=== PATIENT | male | born 1985 | race American Indian/Alaskan Native ===

== ENCOUNTER 2021-05-01 13:59 | Inpatient (IN) | payer MEDICARE ==
--- NOTE | 2021-05-01 17:56 | Emergency Department Report ---
ED General Adult HPI - General Chief complaint: Extremity Problem,Nontraumatic Stated complaint: TESTICLES SWOLLEN Time Seen by Provider: 05/01/21 17:31 Source: patient Mode of arrival: Ambulatory Limitations: No Limitations - History of Present Illness Initial comments: 36 y/o male pt w/ hx of COPD and DM presents to ED w/ complaints of progressively worsening lower extremity and testicular swelling for two weeks. No known history of CHF. Pt was previously diagnosed with COPD and placed on supplemental O2. He has not used his supplemental O2 in over one year due to financial constraints. Denies fever, chills, cough, chest pain, wheezing, vomiting, diarrhea, painful urination, paresthesias, numbness, weakness. Denies all other complaints at this time. - Related Data Allergies Allergy/AdvReac Type Severity Reaction Status Date / Time No Known Allergies Allergy Unverified 05/01/21 14:31 ED Review of Systems ROS: Stated complaint: TESTICLES SWOLLEN Other details as noted in HPI Other: GENERAL: Negative for fever, chills, weight change, anorexia, fatigue. ENT: Negative for ear pain, difficulty hearing, sore throat, nasal congestion, epistaxis. CARDIOVASCULAR: Positive for lower extremity swelling. PULMONARY: Negative for cough, dyspnea, wheezing, orthopnea, cyanosis. GASTROINTESTINAL: Negative for abdominal pain, nausea, vomiting, diarrhea, constipation. MUSCULOSKELETAL: Negative for joint pain, joint swelling, myalgias, back pain, neck pain. NEUROLOGICAL: Negative for headache, seizure, syncope, paresthesias, weakness. INTEGUMENTARY: Negative for erythema, rash, diaphoresis, laceration, ecchymosis. HEMATOLOGICAL: Negative for hemoptysis, hematemesis, hematochezia, hematuria. PSYCHIATRIC: Negative for hallucinations, suicidal ideation, homicidal ideation, anxiety, depression. ED Past Medical Hx - Past Medical History Previous Medical History?: Yes Hx Diabetes: Yes Hx COPD: Yes - Surgical History Past Surgical History?: No ED Physical Exam - General Limitations: No Limitations - Other Other exam information: General: Awake and alert. No acute distress. Head: Atraumatic, normocephalic. Eyes: EOMI. Pupils are equal and round. Normal sclera and conjunctiva. ENT: Oral mucosa is moist. Normal pharyngeal exam. Neck: Supple. No lymphadenopathy. Pulmonary: Supplemental O2 in place via nasal cannula. Coarse breath sounds bilaterally with diminished breath sounds along both lung bases. Cardiac: Tachycardic. Pulses are palpable and equal bilaterally. Significant bilateral pedal and pretibial pitting edema extending to the thighs and test icles. 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 Skin: Warm and dry. No rashes. Abdomen: Soft, non-tender, non-protuberant. No guarding, rigidity, or rebound. Bowel sounds are normal. No organomegaly or masses noted. Back: Normal alignment. No CVA tenderness. Extremities: Symmetrical. Full range of motion intact. Neurological: Alert and oriented, appropriately interactive, no focal deficits. Psych: Cooperative. Appropriate mood and affect. Speech is evenly metered. Thoughts are logically construed. ED Course Vital Signs 05/01/21 05/01/21 05/01/21 14:35 14:38 17:57 Temperature 98.7 F Pulse Rate 100 H 96 H Respiratory 22 19 Rate Blood Pressure 121/88 Blood Pressure 128/89 [Right] O2 Sat by Pulse 85 100 99 Oximetry ED Medical Decision Making - Lab Data Result diagrams: 05/01/21 17:54 05/01/21 17:54 - EKG Data 05/01/21 18:43 EKG shows normal sinus rhythm with a ventricular rate of 97 bpm. Normal axis. Normal AR interval. Normal QT interval. Poor R wave progression. No ST segment changes. Over read by attending emergency physician, who agrees with this interpretation. - Radiology Data [facility] [address] [place] [address] XRay Report Signed Patient: LILLIANA ELLIS MR#: [id number] : 1985 Acct:[id number] Age/Sex: 36 / M ADM Date: 05/01/21 Loc: ED Attending Dr: Ordering Physician: OTIS FARRELL Date of Service: 05/01/21 Procedure(s): XR chest routine 2V Accession Number(s): [id number] cc: OTIS FARRELL Fluoro Time In Minutes: CHEST 2 VIEWS INDICATION / CLINICAL INFORMATION: lower extremity swelling, CHF. COMPARISON: None available. FINDINGS: SUPPORT DEVICES: None. HEART / MEDIASTINUM: Cardiac silhouette size is mildly enlarged. LUNGS / PLEURA: There is mild interstitial pulmonary edema. Trace bilateral pleural effusions are present. The lungs are otherwise grossly clear. No pneumothorax. ADDITIONAL FINDINGS: No significant additional findings. IMPRESSION: 1. Mild cardiomegaly with mild interstitial pulmonary edema. Probable trace bilateral pleural effusions. Signer Name: Cinthia Littlejohn MD Signed: 05/01/2021 6:18 PM Workstation Name: [id number] Transcribed By: Dictated By: Cinthia Littlejohn MD Electronically Authenticated By: Cinthia Littlejohn MD Signed Date/Time: 05/01/211817 DD/ 16 TD/TT: - Medical Decision Making Differential diagnosis including but not limited to: acute coronary syndrome, cardiac arrhythmia, pericarditis, pericardial effusion/cardiac tamponade, pleural effusion, pneumonia, COVID-19, congestive heart failure, pulmonary hypertension, renal failure On reevaluation, patient is stable. Oxygen saturation 100% on 2 L per nasal cannula. No respiratory distress. Labs and chest x-ray are consistent with new onset CHF in the setting of renal failure. Given IV Lasix. Blood pressure is stable, therefore nitroglycerin and BiPAP withheld. Potassium slightly elevated; EKG without evidence of acute injury pattern or arrhythmia. Patient will require further diagnostic work-up and cardiology/nephrology consultation. Case discussed with hospitalist, who agrees to admit. Patient expressed understanding and is agreeable to plan of care. Critical Care Time: Yes Critical care time in (mins) excluding proc time.: 74 Critical care attestation.: If time is entered above; I have spent that time in minutes in the direct care of this critically ill patient, excluding procedure time. Critical Care Time: 74 minutes ED Disposition Clinical Impression: Acute on chronic respiratory failure with hypoxia Congestive heart failure Qualifiers: Heart failure type: unspecified Heart failure chronicity: unspecified Qualified Code(s): I50.9 - Heart failure, unspecified Renal failure Qualifiers: Renal failure chronicity: unspecified chronicity Qualified Code(s): N19 - Unspecified kidney failure Disposition: OP ADMIT IP TO THIS HOSP Is pt being admited?: Yes Does the pt Need Aspirin: No Condition: Serious Time of Disposition: 18:45
[2021-05-01 18:18] LABS: Basophils % (Auto) 0.6 % (0.0-1.8); Hematocrit 59.5 % (35.5-45.6); Hemoglobin 19.2 gm/dl (11.8-15.2); Lymphocytes # (Auto) 1.2 K/mm3 (1.2-5.4); Lymphocytes % (Auto) 28.2 % (13.4-35.0); Mean Corpuscular HGB Conc 32 % (32-34); Mean Corpuscular Volume 101 fl (84-94); Monocytes # (Auto) 0.5 K/mm3 (0.0-0.8); Monocytes % (Auto) 12.3 % (0.0-7.3); Platelet Count 260 K/mm3 (140-440); Red Blood Count 5.91 M/mm3 (3.65-5.03)
--- NOTE | 2021-05-01 18:23 | XRay Report ---
CHEST 2 VIEWS INDICATION / CLINICAL INFORMATION: lower extremity swelling, CHF. COMPARISON: None available. FINDINGS: SUPPORT DEVICES: None. HEART / MEDIASTINUM: Cardiac silhouette size is mildly enlarged. LUNGS / PLEURA: There is mild interstitial pulmonary edema. Trace bilateral pleural effusions are pre sent. The lungs are otherwise grossly clear. No pneumothorax. ADDITIONAL FINDINGS: No significant additional findings. IMPRESSION: 1. Mild cardiomegaly with mild interstitial pulmonary edema. Probable trace bilateral pleural effusio ns. Signer Name: Cinthia Littlejohn MD Signed: 05/01/2021 6:18 PM Workstation Name: [id number]
[2021-05-01 18:34] LABS: Calcium 9.2 mg/dL (8.4-10.2)
[2021-05-01 18:38] LABS: Bacteria,Urine 1+ /HPF (Negative); Bilirubin,Urine NEG (Negative); Blood,Urine MOD (Negative); Color,Urine Yellow (Yellow); Mucus,Urine FEW /HPF; Urobilinogen,Urine < 2.0 mg/dL (<2.0)
[2021-05-01] MEDS ORDERED: FUROSEMIDE 40 MG/4 ML INJ IV ONE (18:38)
[2021-05-01 18:39] LABS: Protein,Urine >500 mg/dL (Negative)
--- NOTE | 2021-05-01 18:43 | History and Physical Report ---
History of Present Illness Chief complaint: I am swollen and is hard to breathe History of present illness: 36 YO Male with Obesity Hypoventilation Syndrome, SMO, DM presents to ED for evaluation. Patient reports "I am swollen and is hard to breathe". Patient states that he has experienced shortness of breath, lower extremity swelling, testicular swelling over the past 2 weeks with progressively worsening symptoms over the same timeframe. Patient knowledges decreased exercise tolerance, dyspnea on exertion, dyspnea at rest. Patient transported to [facility] via private vehicle for further care and evaluation of the aforementioned symptoms. The patient was seen and evaluated in the emergency department. All lab and imaging studies reviewed. Patient found to have clinical symptoms consistent with new onset CHF, as well as cardiorenal syndrome. Patient admitted to telemetry and initiated on CHF protocol. Cardiology team consulted in ED. Nephrology team consulted in ED. Patient denies fever, chills, chest pain, palpitation, productive cough, skin rash, recent ill contact, or known exposure to COVID-19. No prior admission for review. No medication listed at admission for reconciliation. Past History Past Medical History: diabetes Past Surgical History: No surgical history, Other (Reviewed) Social history: single. denies: smoking, alcohol abuse, prescription drug abuse Family history: diabetes, hypertension Medications and Allergies Allergies Allergy/AdvReac Type Severity Reaction Status Date / Time No Known Allergies Allergy Unverified 05/01/21 14:31 Review of Systems Constitutional: no weight loss, no weight gain, no fever, no chills Ears, nose, mouth and throat: no ear pain, no ear discharge, no tinnitis, no decreased hearing, no nose pain, no nasal discharge Cardiovascular: orthopnea, edema, shortness of breath, dyspnea on exertion, paroxysmal nocturnal dyspnea, leg edema, decreased exercise tolerance, no chest pain, no palpitations Respiratory: no cough, no cough with sputum, no excessive sputum, no hemoptysis Gastrointestinal: no nausea, no vomiting, no diarrhea, no constipation Genitourinary Male: no hematuria, no flank pain, no discharge, no urinary frequency, no urinary hesitancy Rectal: no pain, no incontinence, no bleeding Musculoskeletal: no neck stiffness, no neck pain, no arm numbness/tingling, no low back pain Integumentary: no rash, no pruritis, no redness, no sores, no wounds Neurological: no transient paralysis, no paralysis, no weakness, no parathesias, no tingling Psychiatric: no anxiety, no memory loss, no sleep disturbances, no insomnia, no change in appetite, no change in libido Endocrine: no cold intolerance, no heat intolerance, no excessive thirst, no polydipsia, no polyuria, no nocturia, no excessive sweating Hematologic/Lymphatic: no easy bruising, no easy bleeding Allergic/Immunologic: no urticaria, no allergic rhinitis, no wheezing, no persistent infections Exam - Constitutional Vitals: Temp Pulse Resp BP Pulse Ox 98.7 F 96 H 19 128/89 99 05/01/21 14:35 05/01/21 17:57 05/01/21 17:57 05/01/21 17:57 05/01/21 17:57 General appearance: Present: mild distress, obese - EENT Eyes: Present: PERRL ENT: hearing intact, clear oral mucosa - Neck Neck: Present: supple, normal ROM - Respiratory Respiratory effort: labored Respiratory: bilateral: diminished, rales - Cardiovascular Heart Sounds: Present: S1 & S2. Absent: rub, click - Extremities Extremity abnormal: edema Peripheral Pulses: within normal limits - Abdominal General gastrointestinal: Present: soft, non-tender, non-distended, normal bowel sounds Male genitourinary: Present: normal - Integumentary Integumentary: Present: clear, dry - Musculoskeletal Musculoskeletal: generalized weakness - Psychiatric Psychiatric: appropriate mood/affect, intact judgment & insight - Neurologic Neurologic: CNII-XII intact, moves all extremities Results - Labs CBC & Chem 7: 05/01/21 17:54 05/01/21 18:58 Labs: Abnormal lab results 05/01/21 05/01/21 05/01/21 Range/Units 17:54 17:54 17:56 WBC 4.3 L (4.5-11.0) K/mm3 RBC 5.91 H (3.65-5.03) M/mm3 Hgb 19.2 H (11.8-15.2) gm/dl Hct 59.5 H (35.5-45.6) % MCV 101 H (84-94) fl RDW 16.0 H (13.2-15.2) % [place] % (Auto) 12.3 H (0.0-7.3) % Sodium 136 L (137-145) mmol/L Potassium 5.5 H (3.6-5.0) mmol/L Chloride 96.9 L (98-107) mmol/L Carbon Dioxide 34 H (22-30) mmol/L BUN 25 H (9-20) mg/dL Creatinine 2.7 H (0.8-1.3) mg/dL Phosphorus 5.30 H (2.5-4.5) mg/dL NT-Pro-B Natriuret Pep 1940 H (0-450) pg/mL Albumin 2.0 L (3.9-5) g/dL Urine WBC (Auto) 11.0 H (0.0-6.0) /HPF Assessment and Plan - Patient Problems (1) Congestive heart failure Current Visit: Yes Status: Acute Qualifiers: Heart failure type: unspecified Heart failure chronicity: acute Qualified Code(s): I50.9 - Heart failure, unspecified Plan to address problem: CHF protocol: Strict I's/O, monitor urine output every shift, daily weight, afterload reduction, blood pressure control, supplemental oxygen, diuresis with Lasix, BNP, thyroid panel, magnesium level, chest x-ray, cardiology team consulted in ED. Echocardiogram ordered and is pending at time of admission. (2) Acute on chronic respiratory failure with hypoxemia Current Visit: Yes Status: Acute Plan to address problem: Supplemental oxygen, pulse oximetry, nebulizer therapy, noninvasive positive pressure ventilation as clinically indicated. (3) Cardiorenal syndrome Current Visit: Yes Status: Acute Qualifiers: Heart failure presence: with heart failure Plan to address problem: Nephrology team consulted in ED, supportive care. (4) Obesity hypoventilation syndrome Current Visit: Yes Status: Acute Plan to address problem: Balanced diet, increase physical activity discharge, outpatient pulmonary follow-up for sleep study, outpatient bariatric surgery consult. (5) DVT prophylaxis Current Visit: Yes Status: Acute Plan to address problem: SCD to bilateral lower extremities while in bed, prophylactic anticoagulation
[2021-05-01] MEDS ORDERED: HYDROmorphone 1 MG/1 ML INJ IV PRN (18:44)
[2021-05-01] MEDS ORDERED: ONDANSETRON 4 MG/2 ML INJ IV PRN (18:44)
[2021-05-01] MEDS ORDERED: ACETAMINOPHEN 325 MG TAB PO PRN (18:44)
[2021-05-01] MEDS ORDERED: ALBUTEROL 2.5 MG/3 ML NEBU IH PRN (18:44)
[2021-05-01] MEDS ORDERED: oxyCODONE /ACETAMINOPHEN 5-325MG TAB PO PRN (18:44)
[2021-05-01 19:40] LABS: Chol/HDL Ratio 4.96 %
[2021-05-01 19:49] LABS: Albumin 1.7 g/dL (3.9-5); Calcium 8.6 mg/dL (8.4-10.2); Free T4 (Free Thyroxine) 0.85 ng/dL (0.76-1.46)
[2021-05-01] MEDS: HEPARIN 5,000 UNIT/1 ML VIAL SUB-Q SCH (23:37)
--- NOTE | 2021-05-02 04:24 | Nuclear Medicine Report ---
NUCLEAR MEDICINE PERFUSION LUNG SCAN INDICATION / CLINICAL INFORMATION: dyspnea. Shortness of breath. TECHNIQUE: 5.1 mCi of Tc-99m MAA were given by IV. COMPARISON: Chest radiograph dated 05/01/21. FINDINGS: PERFUSION: No significant perfusion defects. ADDITIONAL FINDINGS: None. IMPRESSION: 1. Low probability for pulmonary embolism. Signer Name: Susan Jeffries MD Signed: 05/02/2021 4:20 AM Workstation Name: [id number]
[2021-05-02] MEDS ORDERED: FUROSEMIDE 20 MG/2 ML INJ IV SCH (06:00)
--- NOTE | 2021-05-02 09:23 | Consultation ---
History of Present Illness - Reason for Consult Consult date: 05/02/21 acute renal failure, chronic renal failure - History of Present Illness The patient is a 36 YO male with history significant for Morbid Obesity, DM and HTN who presented to [facility] ED 05/01 with c/o worsening b/l LE swelling for the past month. Patient states that he has experienced shortness of breath, orthopnea, testicular swelling and difficulty in ambulating. Patient denies any N, V, D, abd pain, cp, dizziness, syncope, fever, chills or cough. On further evaluation he was features of decompensated CHF and CHRISTOPHER. Labs significant for Creat 2.3, BUN 23, K 5.4 and Sodium 132. Nephrology was consulted for further evaluation and treatment of CHRISTOPHER. Past History Past Medical History: diabetes Past Surgical History: No surgical history, Other (Reviewed) Social history: single. denies: smoking, alcohol abuse, prescription drug abuse Family history: diabetes, hypertension Medications and Allergies Allergies Allergy/AdvReac Type Severity Reaction Status Date / Time No Known Allergies Allergy Unverified 05/01/21 14:31 Home Medications Medication Instructions Recorded Confirmed Last Taken Type No Known Home Medications [No 05/02/21 05/02/21 Unknown History Reported Home Medications] Active Meds: Active Medications Acetaminophen (Acetaminophen 325 Mg Tab) 650 mg PO Q4H PRN PRN Reason: Pain MILD(1-3)/Fever >100.5/[place] Albuterol (Albuterol 2.5 Mg/3 Ml Nebu) 2.5 mg IH Q4HRT PRN PRN Reason: Shortness Of Breath Furosemide (Furosemide 20 Mg/2 Ml Inj) 20 mg IV BID@0600,1800 [facility] Last Admin: 05/02/21 05:38 Dose: 20 mg Documented by: Heparin Sodium (Porcine) (Heparin 5,000 Unit/1 Ml Vial) 5,000 unit SUB-Q Q12HR [facility] Last Admin: 05/01/21 23:37 Dose: Not Given Documented by: Hydromorphone HCl (Hydromorphone 1 Mg/1 Ml Inj) 0.5 mg IV Q12H PRN PRN Reason: Pain , Severe (7-10) Ondansetron HCl (Ondansetron 4 Mg/2 Ml Inj) 4 mg IV Q8H PRN PRN Reason: Nausea And Vomiting Oxycodone/Acetaminophen (Oxycodone /Acetaminophen 5-325mg Tab) 1 tab PO Q12H PRN PRN Reason: Pain, Moderate (4-6) Sodium Chloride (Sodium Chloride 0.9% 10 Ml Flush Syringe) 10 ml IV BID NANETTE Last Admin: 05/01/21 23:37 Dose: 10 ml Documented by: Sodium Chloride (Sodium Chloride 0.9% 10 Ml Flush Syringe) 10 ml IV PRN PRN PRN Reason: LINE FLUSH Review of Systems Constitutional: fatigue, no weight loss, no weight gain, no fever, no chills, no anorexia, no weakness, no poor appetite Cardiovascular: orthopnea, edema, shortness of breath, dyspnea on exertion, leg edema, decreased exercise tolerance, no chest pain, no syncope, no lightheadedness Respiratory: no cough Gastrointestinal: no abdominal pain, no nausea, no vomiting, no diarrhea, no melena Genitourinary Male: no dysuria, no hematuria Integumentary: no wounds Neurological: no convulsions, no aphasia, no change in speech, no change in mentation, no confusion, no memory loss Exam - Vital Signs Vital signs: Vital Signs Temp Pulse Resp BP Pulse Ox 98.7 F 100 H 22 121/88 85 05/01/21 14:35 05/01/21 14:35 05/01/21 14:35 05/01/21 14:35 05/01/21 14:35 Results - Lab Results 05/01/21 17:54 05/01/21 18:58 Most recent lab results Calcium 8.6 mg/dL (8.4-10.2) 05/01/21 18:58 Phosphorus 5.30 mg/dL (2.5-4.5) H 05/01/21 17:54 Magnesium 2.30 mg/dL (1.7-2.3) 05/01/21 18:58 Assessment and Plan 1. Acute kidney injury: CHRISTOPHER in the setting of decompensated CHF. Low FeNa. Renal US suggestive of CKD, no hydro. Monitor renal function. Slight decrease in the creatinine level noted. Avoid nephrotoxic agents. Meds dosage based on GFR. 2. FEN: Hyperkalemia, kayexalate ordered, on Lasix, monitor. Hyponatremia, monitor. Volume overload, on IV Lasix. Monitor lytes and volume status. 3. Acute on chronic respiratory failure with hypoxemia: 2/2 volume overload due to CHF. On NC O2. 4. Decompensated CHF: New onset congestive heart failure. Echocardiogram pending. On Lasix 40 mg twice daily, Metoprolol, strict I/Os, fluid and salt restriction. 5. Obesity hypoventilation syndrome. 6. DM type 2. 7. Polycythemia, POA: Monitor. 8. Hypertension: BP controlled. Subjective: Patient was seen and examined at the bedside. Examination: General appearance: well-developed, appears stated age, morbidly obese, on NC O2 HEENT: atraumatic, KD Neck: trachea midline Respiratory: ctab Heart: S1S2, regular, no murmur Abdomen: soft, bowel sounds heard, NT Integumentary: no obvious rash Neurologic: AO, non-focal Ext: LE, scrotal, abd wall and dependent edema
[2021-05-02] MEDS: HEPARIN 5,000 UNIT/1 ML VIAL SUB-Q SCH ×2 (10:34→21:33)
--- NOTE | 2021-05-02 10:48 | Ultrasound Report ---
ULTRASOUND RENAL INDICATION / CLINICAL INFORMATION: Acute renal failure.. COMPARISON: None available. FINDINGS: RIGHT KIDNEY: Length = 10.8 cm. - Echogenicity: Mild increased echogenicity. - Cortical Thickness: Normal. - Hydronephrosis: None. - Cyst / Mass: None. - Stones: None seen. LEFT KIDNEY: Length = 11.0 cm. - Echogenicity: Normal. - Cortical Thickness: Normal. - Hydronephrosis: None. - Cyst / Mass: None. - Stones: None seen. URINARY BLADDER: No significant abnormality. FREE FLUID: None. ADDITIONAL FINDINGS: None. IMPRESSION: 1. Limited examination secondary to body habitus. 2. Mildly echogenic right kidney which can be seen with medical renal disease, correlate clinically. Signer Name: Bridger Lara DO Signed: 05/02/2021 10:43 AM Workstation Name: [id number]
--- NOTE | 2021-05-02 14:27 | Consultation ---
History of Present Illness Consult date: 05/02/21 Requesting physician: BRIELLE CASTLE Consult reason: congestive heart failure History of present illness: Patient is a 36 y/o old male with a PMHx of COPD and DM who presented to ED with a complaint of being swollen and having difficulty breathing. He reports that he has noticed his shortness of breath and swelling over 2 weeks. The patient denies any cardiac history and says he does not have a PCP in the area because he is from [place]. He reports he has dyspnea on exertion and at rest. He denies chest pain, palpitations, or lightheadedness. Cardiology has been consulted for new onset heart failure Past History Past Medical History: COPD, diabetes Past Surgical History: No surgical history, Other (Reviewed) Social history: single. denies: smoking, alcohol abuse, prescription drug abuse Family history: diabetes, hypertension Medications and Allergies Allergies Allergy/AdvReac Type Severity Reaction Status Date / Time No Known Allergies Allergy Unverified 05/01/21 14:31 Home Medications Medication Instructions Recorded Confirmed Last Taken Type No Known Home Medications [No 05/02/21 05/02/21 Unknown History Reported Home Medications] Active Meds: Active Medications Acetaminophen (Acetaminophen 325 Mg Tab) 650 mg PO Q4H PRN PRN Reason: Pain MILD(1-3)/Fever >100.5/MEDLEY Albuterol (Albuterol 2.5 Mg/3 Ml Nebu) 2.5 mg IH Q4HRT PRN PRN Reason: Shortness Of Breath Atorvastatin Calcium (Atorvastatin 40 Mg Tab) 80 mg PO QHS [facility] Furosemide (Furosemide 20 Mg/2 Ml Inj) 40 mg IV BID@0600,1800 [facility] Heparin Sodium (Porcine) (Heparin 5,000 Unit/1 Ml Vial) 5,000 unit SUB-Q Q12HR [facility] Last Admin: 05/02/21 10:34 Dose: 5,000 unit Documented by: Hydromorphone HCl (Hydromorphone 1 Mg/1 Ml Inj) 0.5 mg IV Q12H PRN PRN Reason: Pain , Severe (7-10) Metoprolol Tartrate (Metoprolol Tartrate 25 Mg Tab) 12.5 mg PO BID [facility] Ondansetron HCl (Ondansetron 4 Mg/2 Ml Inj) 4 mg IV Q8H PRN PRN Reason: Nausea And Vomiting Oxycodone/Acetaminophen (Oxycodone /Acetaminophen 5-325mg Tab) 1 tab PO Q12H PRN PRN Reason: Pain, Moderate (4-6) Sodium Chloride (Sodium Chloride 0.9% 10 Ml Flush Syringe) 10 ml IV BID NANETTE Last Admin: 05/02/21 10:34 Dose: 10 ml Documented by: Sodium Chloride (Sodium Chloride 0.9% 10 Ml Flush Syringe) 10 ml IV PRN PRN PRN Reason: LINE FLUSH Review of Systems All systems: negative Constitutional: no weight loss, no fever, no chills, no sweats Ears, nose, mouth and throat: no decreased hearing, no nose pain, no nasal congestion, no nasal discharge, no sinus pressure Cardiovascular: edema, shortness of breath, dyspnea on exertion, no chest pain, no palpitations, no rapid/irregular heart beat, no lightheadedness Respiratory: shortness of breath, dyspnea on exertion, no cough with sputum, no excessive sputum, no hemoptysis Gastrointestinal: no abdominal pain, no nausea, no vomiting, no diarrhea Musculoskeletal: no neck stiffness, no neck pain, no shooting arm pain, no arm numbness/tingling Integumentary: no rash, no pruritis, no redness Neurological: no transient paralysis, no paralysis, no weakness Psychiatric: no anxiety, no memory loss Endocrine: no cold intolerance, no heat intolerance Hematologic/Lymphatic: no easy bruising, no easy bleeding Physical Examination Last Vital Signs Temp 98.7 F 05/01/21 14:35 Pulse 104 H 05/02/21 05:30 Resp 18 05/02/21 05:30 BP 126/90 05/02/21 05:30 Pulse Ox 95 05/02/21 05:30 General appearance: no acute distress HEENT: Positive: PERRL Neck: Positive: trachea midline Cardiac: Positive: Reg Rate and Rhythm Lungs: Positive: Decreased Breath Sounds Neuro: Positive: Grossly Intact Abdomen: Positive: Soft, Active Bowel Sounds Skin: Negative: Rash, Suspicious Lesions, Ulceration Extremities: Present: upper extr. pulses, lower extr. pulses, +4 Edema Results 05/01/21 17:54 05/01/21 18:58 Cardiac Enzymes 05/01/21 05/01/21 Range/Units 17:54 18:58 AST 33 38 (5-40) units/L Lipids 05/01/21 Range/Units 18:46 Triglycerides 121 (2-149) mg/dL Cholesterol 248 H (50-199) mg/dL HDL Cholesterol 50 (40-59) mg/dL Cholesterol/HDL Ratio 4.96 % CBC 05/01/21 Range/Units 17:54 WBC 4.3 L (4.5-11.0) K/mm3 RBC 5.91 H (3.65-5.03) M/mm3 Hgb 19.2 H (11.8-15.2) gm/dl Hct 59.5 H (35.5-45.6) % Plt Count 260 (140-440) K/mm3 Lymph # (Auto) 1.2 (1.2-5.4) K/mm3 [place] # (Auto) 0.5 (0.0-0.8) K/mm3 Eos # (Auto) 0.0 (0.0-0.4) K/mm3 Baso # (Auto) 0.0 (0.0-0.1) K/mm3 Comprehensive Metabolic Panel 05/01/21 05/01/21 Range/Units 17:54 18:58 Sodium 136 L 132 L (137-145) mmol/L Potassium 5.5 H 5.4 H (3.6-5.0) mmol/L Chloride 96.9 L 97.8 L (98-107) mmol/L Carbon Dioxide 34 H 25 D (22-30) mmol/L BUN 25 H 26 H (9-20) mg/dL Creatinine 2.7 H 2.3 H (0.8-1.3) mg/dL Glucose 89 101 H (75-100) mg/dL Calcium 9.2 8.6 (8.4-10.2) mg/dL AST 33 38 (5-40) units/L ALT 23 22 (7-56) units/L Alkaline Phosphatase 98 85 (35-129) units/L Total Protein 7.2 5.9 L (6.3-8.2) g/dL Albumin 2.0 L 1.7 L (3.9-5) g/dL - Imaging and Cardiology Echo: pending EKG: report reviewed, image reviewed EKG interpretations - Telemetry EKG Rhythm: Sinus Tachycardia - EKG Sinus rhythms and dysrhythmias: sinus rhythm Assessment and Plan Heart Failure * Patient has elevated BNP 1940, mildly elevated troponins 0.04, and +4 edema. * Echo pending. Trend cardiac enzymes * Increase Lasix to 40mg IV BID. Pending nephrology recs * GDMT: ASA, ANDREW/ARB, BB, Statin. Hold ANDREW/ARB in setting of CHRISTOPHER * Initiate metoprolol 12.5 BID, Lipitor 80mg QHS * Strict I&Os CHRISTOPHER * Patient has elevated K+ and creatinine with no known baseline. * Nephrology following DVT prophylaxis * Heparin SQ Diuresis, strict I/Os, echo pending Patient seen in conjunction with Dr. Meli Castro who agrees with this plan of care. Will continue to follow - Patient Problems (1) Acute on chronic respiratory failure with hypoxia Current Visit: Yes Status: Acute (2) Congestive heart failure Current Visit: Yes Status: Acute Qualifiers: Heart failure type: unspecified Heart failure chronicity: acute Qualified Code(s): I50.9 - Heart failure, unspecified (3) DVT prophylaxis Current Visit: Yes Status: Acute (4) Obesity hypoventilation syndrome Current Visit: Yes Status: Acute (5) Renal failure Current Visit: Yes Status: Acute Qualifiers: Renal failure chronicity: unspecified chronicity Qualified Code(s): N19 - Unspecified kidney failure
[2021-05-02 16:23] LABS: Creatinine,Urine 207.2 mg/dL (0.1-20.0); Protein/Creatinine Ratio,Urine 0.27
[2021-05-02] MEDS: FUROSEMIDE 40 MG/4 ML INJ IV SCH (17:22)
[2021-05-02] MEDS: METOPROLOL TARTRATE 25 MG TAB PO SCH ×2 (17:22→21:31)
--- NOTE | 2021-05-02 17:39 | Progress Note ---
Assessment and Plan - Patient Problems (1) Acute on chronic respiratory failure with hypoxemia Current Visit: Yes Status: Acute Plan to address problem: Acute respiratory failure with hypoxemia secondary to volume overload congestive heart failure. Should do well defervesced well with diuresis. Also exacerbated by the level of morbid obesity. Stable with 2 L of oxygen. (2) Congestive heart failure Current Visit: Yes Status: Acute Qualifiers: Heart failure type: unspecified Heart failure chronicity: acute Qualified Code(s): I50.9 - Heart failure, unspecified Plan to address problem: New onset congestive heart failure. Patient currently scheduled to receive ec hocardiogram. Diuretics Lasix 40 mg twice daily-diuresis should also help for scrotal edema Follow-up electrolytes. Follow up echocardiogram results. Ruled out for acute myocardial infarction Aggressive control blood pressure Beta-bushra Coreg, hold ANDREW inhibitor secondary to renal failure will restart after evaluation from nephrology. (3) DVT prophylaxis Current Visit: Yes Status: Acute (4) Obesity hypoventilation syndrome Current Visit: Yes Status: Acute Plan to address problem: Morbid obesity increase neck circumference loud snoring. Patient will require sleep study upon discharge. (5) Renal failure Current Visit: Yes Status: Acute Qualifiers: Renal failure chronicity: unspecified chronicity Qualified Code(s): N19 - Unspecified kidney failure Plan to address problem: Renal failure could be from uncontrolled hypertension. Renal consult Renal diet Avoid nephrotoxic agents (6) Hyperlipidemia Current Visit: Yes Status: Acute Plan to address problem: Patient with LDL of 189. We will go ahead and start patient on statin today. (7) Scrotal edema Current Visit: Yes Status: Acute Plan to address problem: Severe scrotal edema. Should help with diuresis. Would limit patient's liquid restriction fluid restriction to 1.5 L. Aggressive diuresis Lasix 40 mg IV every [address] a towel under scrotum for elevation. Subjective Date of service: 05/02/21 Principal diagnosis: Congestive heart failure Interval history: Patient 36-year-old male with a history of obstructive sleep apnea, diabetes presented with scrotal and abdominal swelling and ascites for 1 week. Patient stated symptoms were associated with shortness of breath scrotal edema dyspnea at rest and on minimal exertion. Initial work-up patient found to have new onset congestive heart failure and new onset renal failure. At present patient is main concern with scrotal edema and difficulty with urinating secondary to the scrotal edema is around his penis. Patient states sometimes he cannot urinate because of this. Patient denies any chest pain. 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 Patient is recently obtained insurance and able to get things done. Objective - Constitutional Vitals: Vital Signs - 12hr 05/02/21 05/02/21 05/02/21 08:40 14:00 16:46 Temperature 98.6 F Pulse Rate 110 H 96 H Pulse Rate [ 110 H Apical] Respiratory 18 Rate Blood Pressure 130/86 [Right] O2 Sat by Pulse 100 96 99 Oximetry General appearance: Present: no acute distress, well-nourished, other (Morbidly obese) - EENT Eyes: PERRL, EOM intact ENT: hearing intact, clear oral mucosa Ears: bilateral: normal - Neck Neck: supple, normal ROM - Respiratory Respiratory effort: normal Respiratory: bilateral: CTA, rhonchi (Bilateral rhonchi) - Breasts Breasts: normal - Cardiovascular Rhythm: regular Heart Sounds: Present: S1 & S2. Absent: gallop, rub Extremities: pulses intact, normal color, Full ROM Extremity abnormal: edema (+4 pitting edema) - Gastrointestinal General gastrointestinal: Present: soft, non-tender, non-distended, normal bowel sounds, other (Abdominal ascites) Rectal Exam: other (Profound scrotal edema penis is inverted into swelling) - Integumentary Integumentary: clear, warm, dry - Musculoskeletal Musculoskeletal: 1, strength equal bilaterally - Neurologic Neurologic: moves all extremities - Psychiatric Psychiatric: memory intact, appropriate mood/affect, intact judgment & insight - Labs CBC & Chem 7: 05/01/21 17:54 05/01/21 18:58 Labs: Abnormal lab results 05/01/21 05/01/21 05/01/21 Range/Units 17:54 17:54 17:56 WBC 4.3 L (4.5-11.0) K/mm3 RBC 5.91 H (3.65-5.03) M/mm3 Hgb 19.2 H (11.8-15.2) gm/dl Hct 59.5 H (35.5-45.6) % MCV 101 H (84-94) fl RDW 16.0 H (13.2-15.2) % [place] % (Auto) 12.3 H (0.0-7.3) % Sodium 136 L (137-145) mmol/L Potassium 5.5 H (3.6-5.0) mmol/L Chloride 96.9 L (98-107) mmol/L Carbon Dioxide 34 H (22-30) mmol/L BUN 25 H (9-20) mg/dL Creatinine 2.7 H (0.8-1.3) mg/dL Glucose (75-100) mg/dL Phosphorus 5.30 H (2.5-4.5) mg/dL Troponin T (0.00-0.029) ng/mL NT-Pro-B Natriuret Pep 1940 H (0-450) pg/mL Total Protein (6.3-8.2) g/dL Albumin 2.0 L (3.9-5) g/dL Cholesterol (50-199) mg/dL LDL Cholesterol Direct (50-130) mg/dL Urine WBC (Auto) 11.0 H (0.0-6.0) /HPF Urine Creatinine (0.1-20.0) mg/dL Urine Total Protein (5-11.8) mg/dL 05/01/21 05/01/21 05/02/21 Range/Units 18:46 18:58 Unknown WBC (4.5-11.0) K/mm3 RBC (3.65-5.03) M/mm3 Hgb (11.8-15.2) gm/dl Hct (35.5-45.6) % MCV (84-94) fl RDW (13.2-15.2) % [place] % (Auto) (0.0-7.3) % Sodium 132 L (137-145) mmol/L Potassium 5.4 H (3.6-5.0) mmol/L Chloride 97.8 L (98-107) mmol/L Carbon Dioxide (22-30) mmol/L BUN 26 H (9-20) mg/dL Creatinine 2.3 H (0.8-1.3) mg/dL Glucose 101 H (75-100) mg/dL Phosphorus (2.5-4.5) mg/dL Troponin T 0.040 H (0.00-0.029) ng/mL NT-Pro-B Natriuret Pep (0-450) pg/mL Total Protein 5.9 L (6.3-8.2) g/dL Albumin 1.7 L (3.9-5) g/dL Cholesterol 248 H (50-199) mg/dL LDL Cholesterol Direct 189 H (50-130) mg/dL Urine WBC (Auto) (0.0-6.0) /HPF Urine Creatinine 207.2 H (0.1-20.0) mg/dL Urine Total Protein 56 H (5-11.8) mg/dL HEART Score - HEART Score Troponin: Troponin T 0.040 ng/mL (0.00-0.029) H 05/01/21 18:46
[2021-05-02] MEDS ORDERED: SODIUM POLYSTYRENE 15 GM/60 ML ORAL LIQD PO ONE (21:43)
[2021-05-03] MEDS: FUROSEMIDE 40 MG/4 ML INJ IV SCH ×2 (05:40→17:57)
[2021-05-03 06:56] LABS: Calcium 8.6 mg/dL (8.4-10.2)
[2021-05-03] MEDS ORDERED: SODIUM POLYSTYRENE 15 GM/60 ML ORAL LIQD PO NR (09:38)
--- NOTE | 2021-05-03 09:39 | Progress Note ---
Assessment and Plan 1. Acute kidney injury: CHRISTOPHER in the setting of decompensated CHF. Low FeNa. Renal US suggestive of CKD, no hydro. Monitor renal function. Creatinine level fluctuates. Avoid nephrotoxic agents. Meds dosage based on GFR. 2. FEN: Hyperkalemia, kayexalate ordered, on Lasix, monitor. Hyponatremia, monitor. Volume overload, on IV Lasix. Monitor lytes and volume status. 3. Acute on chronic respiratory failure with hypoxemia: 2/2 volume overload due to CHF. On NC O2. 4. Decompensated CHF: New onset congestive heart failure. Echocardiogram shwoed normal EF, dilated RV and pulm HTN. On Lasix 40 mg twice daily, Metoprolol, strict I/Os, fluid and salt restriction. 5. Obesity hypoventilation syndrome. 6. DM type 2. 7. Polycythemia, POA: Monitor. 8. Hypertension: BP controlled. Subjective: Patient was seen and examined at the bedside. Examination: General appearance: well-developed, appears stated age, morbidly obese, on NC O2 HEENT: atraumatic, KD Neck: trachea midline Respiratory: ctab Heart: S1S2, regular, no murmur Abdomen: soft, bowel sounds heard, NT Integumentary: no obvious rash Neurologic: alert, non-focal Ext: LE, abd wall and dependent edema noted Subjective Date of service: 05/03/21 Principal diagnosis: Congestive heart failure Objective - Vital Signs Vital signs: Vital Signs - 12hr 05/02/21 05/03/21 05/03/21 22:00 00:44 01:33 Temperature Pulse Rate Pulse Rate [ 110 H Apical] Respiratory Rate Blood Pressure O2 Sat by Pulse 96 91 92 Oximetry 05/03/21 05/03/21 05/03/21 02:00 04:15 04:42 Temperature 98.6 F Pulse Rate 101 H 102 H Pulse Rate [ Apical] Respiratory Rate Blood Pressure 119/72 O2 Sat by Pulse 93 Oximetry 05/03/21 05/03/21 05/03/21 07:58 08:28 08:34 Temperature 98.9 F Pulse Rate 105 H Pulse Rate [ 101 H Apical] Respiratory 19 20 Rate Blood Pressure 144/94 O2 Sat by Pulse 91 96 94 Oximetry - Lab 05/01/21 17:54 05/03/21 05:36 Most recent lab results Calcium 8.6 mg/dL (8.4-10.2) 05/03/21 05:36 Phosphorus 5.30 mg/dL (2.5-4.5) H 05/01/21 17:54 Magnesium 2.30 mg/dL (1.7-2.3) 05/01/21 18:58 Urine Creatinine 207.2 mg/dL (0.1-20.0) H 05/02/21 Unknown Urine Sodium 52 mmol/L 05/02/21 Unknown Urine Total Protein 56 mg/dL (5-11.8) H 05/02/21 Unknown Medications & Allergies - Medications Allergies/Adverse Reactions: Allergies No Known Allergies Allergy (Unverified 05/01/21 14:31) Home Medications: Home Medications Medication Instructions Recorded Confirmed Last Taken Type No Known Home Medications [No 05/02/21 05/02/21 Unknown History Reported Home Medications] Active Medications: Generic Name Dose Route Start Last Admin Trade Name Freq PRN Reason Stop Dose Admin Acetaminophen 650 mg 05/01/21 18:44 Acetaminophen 325 Mg Tab PO Q4H PRN Pain MILD(1-3)/Fever >100.5/MEDLEY Albuterol 2.5 mg 05/01/21 18:44 Albuterol 2.5 Mg/3 Ml Nebu IH Q4HRT PRN Shortness Of Breath Aspirin 81 mg 05/03/21 10:00 Aspirin 81 Mg Tab Chew PO QDAY NANETTE Atorvastatin Calcium 80 mg 05/02/21 22:00 05/02/21 21:32 Atorvastatin 40 Mg Tab PO 80 mg QHS NANETTE Administration Furosemide 40 mg 05/02/21 18:00 05/03/21 05:40 Furosemide 40 Mg/4 Ml Inj IV 40 mg BID@0600,1800 NANETTE Administration Heparin Sodium (Porcine) 5,000 unit 05/01/21 22:00 05/02/21 21:33 Heparin 5,000 Unit/1 Ml Vial SUB-Q 5,000 unit Q12HR NANETTE Administration Hydromorphone HCl 0.5 mg 05/01/21 18:44 Hydromorphone 1 Mg/1 Ml Inj IV Q12H PRN Pain , Severe (7-10) Metoprolol Tartrate 12.5 mg 05/02/21 16:30 05/02/21 21:31 Metoprolol Tartrate 25 Mg Tab PO 12.5 mg BID NANETTE Administration Ondansetron HCl 4 mg 05/01/21 18:44 Ondansetron 4 Mg/2 Ml Inj IV Q8H PRN Nausea And Vomiting Oxycodone/Acetaminophen 1 tab 05/01/21 18:44 Oxycodone /Acetaminophen 5-325mg Tab PO Q12H PRN Pain, Moderate (4-6) Sodium Chloride 10 ml 05/01/21 22:00 05/02/21 21:31 Sodium Chloride 0.9% 10 Ml Flush Syringe IV 10 ml BID NANETTE Administration Sodium Chloride 10 ml 05/01/21 18:44 Sodium Chloride 0.9% 10 Ml Flush Syringe IV PRN PRN LINE FLUSH
[2021-05-03] MEDS: METOPROLOL TARTRATE 25 MG TAB PO SCH ×2 (09:42→22:32)
[2021-05-03] MEDS: ASPIRIN 81 MG TAB CHEW PO SCH (09:42)
[2021-05-03] MEDS: HEPARIN 5,000 UNIT/1 ML VIAL SUB-Q SCH ×2 (09:42→22:34)
--- NOTE | 2021-05-03 10:54 | Electrocardiograph Report ---
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
--- NOTE | 2021-05-03 11:22 | Progress Note ---
Assessment and Plan Assessment and plan: Acute on chronic hypoxemic respiratory failure Acute diastolic heart failure. Pulmonary hypertension Acute COPD exacerbation Acute kidney injury. Diabetes mellitus type 2. Obesity hypoventilation syndrome. Obstructive sleep apnea. Morbid obesity. 05/03/2021. Echocardiogram revealed left ventricular size normal with systolic function also normal EF 50 to 55%. Mild concentric left ventricular hypertrophy. Right ventricular volume overload. RVSP 48 mmHg consistent with pulmonary hypertension. However, VQ scan showed no evidence of PE. Also, patient appears to have CHRISTOPHER in the setting of decompensated CHF. Renal ultrasound is suggestive of CKD with no hydronephrosis or signs of obstruction. Baseline creatinine unknown. Continue per nephrology recommendations the patient will be counseled on the importance of weight loss and exercise prior to discharge. History Interval history: No new issues overnight. Hospitalist Physical - Constitutional Vitals: Temp Pulse Resp BP Pulse Ox 98.9 F 101 H 20 141/87 94 05/03/21 08:34 05/03/21 09:42 05/03/21 08:34 05/03/21 09:42 05/03/21 08:34 General appearance: Present: no acute distress, well-nourished, other (Morbidly obese) - EENT Eyes: Present: PERRL, EOM intact ENT: hearing intact, clear oral mucosa, dentition normal - Neck Neck: Present: supple, normal ROM - Respiratory Respiratory effort: normal Respiratory: bilateral: CTA - Cardiovascular Rhythm: regular Heart Sounds: Present: S1 & S2. Absent: gallop, rub - Extremities Extremities: no ischemia, No edema, Full ROM - Abdominal General gastrointestinal: soft, non-tender, non-distended, normal bowel sounds - Integumentary Integumentary: Present: clear, warm, dry - Neurologic Neurologic: CNII-XII intact, moves all extremities HEART Score - HEART Score Troponin: Troponin T 0.035 ng/mL (0.00-0.029) H 05/03/21 05:36 Results - Labs CBC & Chem 7: 05/01/21 17:54 05/03/21 05:36 Labs: Laboratory Last Values WBC 4.3 K/mm3 (4.5-11.0) L 05/01/21 17:54 RBC 5.91 M/mm3 (3.65-5.03) H 05/01/21 17:54 Hgb 19.2 gm/dl (11.8-15.2) H 05/01/21 17:54 Hct 59.5 % (35.5-45.6) H 05/01/21 17:54 MCV 101 fl (84-94) H 05/01/21 17:54 MCH 32 pg (28-32) 05/01/21 17:54 MCHC 32 % (32-34) 05/01/21 17:54 RDW 16.0 % (13.2-15.2) H 05/01/21 17:54 Plt Count 260 K/mm3 (140-440) 05/01/21 17:54 Lymph % (Auto) 28.2 % (13.4-35.0) 05/01/21 17:54 [place] % (Auto) 12.3 % (0.0-7.3) H 05/01/21 17:54 Eos % (Auto) 1.0 % (0.0-4.3) 05/01/21 17:54 Baso % (Auto) 0.6 % (0.0-1.8) 05/01/21 17:54 Lymph # (Auto) 1.2 K/mm3 (1.2-5.4) 05/01/21 17:54 [place] # (Auto) 0.5 K/mm3 (0.0-0.8) 05/01/21 17:54 Eos # (Auto) 0.0 K/mm3 (0.0-0.4) 05/01/21 17:54 Baso # (Auto) 0.0 K/mm3 (0.0-0.1) 05/01/21 17:54 Seg Neutrophils % 57.9 % (40.0-70.0) 05/01/21 17:54 Seg Neutrophils # 2.5 K/mm3 (1.8-7.7) 05/01/21 17:54 Sodium 139 mmol/L (137-145) D 05/03/21 05:36 Potassium 5.5 mmol/L (3.6-5.0) H 05/03/21 05:36 Chloride 98.5 mmol/L (98-107) 05/03/21 05:36 Carbon Dioxide 34 mmol/L (22-30) H D 05/03/21 05:36 Anion Gap 12 mmol/L 05/03/21 05:36 BUN 29 mg/dL (9-20) H 05/03/21 05:36 Creatinine 2.7 mg/dL (0.8-1.3) H 05/03/21 05:36 Estimated GFR 32 ml/min 05/03/21 05:36 BUN/Creatinine Ratio 11 % 05/03/21 05:36 Glucose 133 mg/dL (75-100) H 05/03/21 05:36 Calcium 8.6 mg/dL (8.4-10.2) 05/03/21 05:36 Phosphorus 5.30 mg/dL (2.5-4.5) H 05/01/21 17:54 Magnesium 2.30 mg/dL (1.7-2.3) 05/01/21 18:58 Total Bilirubin 0.30 mg/dL (0.1-1.2) 05/01/21 18:58 AST 38 units/L (5-40) 05/01/21 18:58 ALT 22 units/L (7-56) 05/01/21 18:58 Alkaline Phosphatase 85 units/L (35-129) 05/01/21 18:58 Troponin T 0.035 ng/mL (0.00-0.029) H 05/03/21 05:36 NT-Pro-B Natriuret Pep 1940 pg/mL (0-450) H 05/01/21 17:54 Total Protein 5.9 g/dL (6.3-8.2) L 05/01/21 18:58 Albumin 1.7 g/dL (3.9-5) L 05/01/21 18:58 Albumin/Globulin Ratio 0.4 % 05/01/21 18:58 Triglycerides 121 mg/dL (2-149) 05/01/21 18:46 Cholesterol 248 mg/dL (50-199) H 05/01/21 18:46 LDL Cholesterol Direct 189 mg/dL (50-130) H 05/01/21 18:46 HDL Cholesterol 50 mg/dL (40-59) 05/01/21 18:46 Cholesterol/HDL Ratio 4.96 % 05/01/21 18:46 TSH 0.932 mlU/mL (0.270-4.200) 05/01/21 18:58 Free T4 0.85 ng/dL (0.76-1.46) 05/01/21 18:58 PTH Intact 100.1 pg/mL (15-65) H 05/03/21 05:36 Urine Color Yellow (Yellow) 05/01/21 17:56 Urine Turbidity Slightly-cloudy (Clear) 05/01/21 17:56 Urine pH 5.0 (5.0-7.0) 05/01/21 17:56 Ur Specific [place] 1.020 (1.003-1.030) 05/01/21 17:56 Urine Protein >500 mg/dL (Negative) 05/01/21 17:56 Urine Glucose (UA) 50 mg/dL (Negative) 05/01/21 17:56 Urine Ketones Neg mg/dL (Negative) 05/01/21 17:56 Urine Blood Mod (Negative) 05/01/21 17:56 Urine Nitrite Neg (Negative) 05/01/21 17:56 Urine Bilirubin Neg (Negative) 05/01/21 17:56 Urine Urobilinogen < 2.0 mg/dL (<2.0) 05/01/21 17:56 Ur Leukocyte Esterase Neg (Negative) 05/01/21 17:56 Urine WBC (Auto) 11.0 /HPF (0.0-6.0) H 05/01/21 17:56 Urine RBC (Auto) 7.0 /HPF (0.0-6.0) 05/01/21 17:56 U Epithel Cells (Auto) 2.0 /HPF (0-13.0) 05/01/21 17:56 Urine Bacteria (Auto) 1+ /HPF (Negative) 05/01/21 17:56 Urine Mucus Few /HPF 05/01/21 17:56 Urine Creatinine 207.2 mg/dL (0.1-20.0) H 05/02/21 Unknown Protein/Creatinin Ratio 0.27 05/02/21 Unknown Urine Sodium 52 mmol/L 05/02/21 Unknown Urine Total Protein 56 mg/dL (5-11.8) H 05/02/21 Unknown [place]/IV: Voiding Method Toilet Active Medications - Current Medications Current Medications: Generic Name Dose Route Start Last Admin Trade Name Freq PRN Reason Stop Dose Admin Acetaminophen 650 mg 05/01/21 18:44 Acetaminophen 325 Mg Tab PO Q4H PRN Pain MILD(1-3)/Fever >100.5/MED[place] Albuterol 2.5 mg 05/01/21 18:44 Albuterol 2.5 Mg/3 Ml Nebu IH Q4HRT PRN Shortness Of Breath Aspirin 81 mg 05/03/21 10:00 05/03/21 09:42 Aspirin 81 Mg Tab Chew PO 81 mg QDAY NANETTE Administration Atorvastatin Calcium 80 mg 05/02/21 22:00 05/02/21 21:32 Atorvastatin 40 Mg Tab PO 80 mg QHS NANETTE Administration Furosemide 40 mg 05/02/21 18:00 05/03/21 05:40 Furosemide 40 Mg/4 Ml Inj IV 40 mg BID@0600,1800 NANETTE Administration Heparin Sodium (Porcine) 5,000 unit 05/01/21 22:00 05/03/21 09:42 Heparin 5,000 Unit/1 Ml Vial SUB-Q 5,000 unit Q12HR NANETTE Administration Hydromorphone HCl 0.5 mg 05/01/21 18:44 Hydromorphone 1 Mg/1 Ml Inj IV Q12H PRN Pain , Severe (7-10) Metoprolol Tartrate 12.5 mg 05/02/21 16:30 05/03/21 09:42 Metoprolol Tartrate 25 Mg Tab PO 12.5 mg BID NANETTE Administration Ondansetron HCl 4 mg 05/01/21 18:44 Ondansetron 4 Mg/2 Ml Inj IV Q8H PRN Nausea And Vomiting Oxycodone/Acetaminophen 1 tab 05/01/21 18:44 Oxycodone /Acetaminophen 5-325mg Tab PO Q12H PRN Pain, Moderate (4-6) Sodium Chloride 10 ml 05/01/21 22:00 05/03/21 09:43 Sodium Chloride 0.9% 10 Ml Flush Syringe IV 10 ml BID NANETTE Administration Sodium Chloride 10 ml 05/01/21 18:44 Sodium Chloride 0.9% 10 Ml Flush Syringe IV PRN PRN LINE FLUSH Sodium Polystyrene Sulfonate 45 gm 05/03/21 09:38 Sodium Polystyrene 15 Gm/60 Ml Oral Liqd PO 05/03/21 12:00 ONCE NR
--- NOTE | 2021-05-03 12:22 | Progress Note ---
Assessment and Plan Acute HFpEF with likely * Patient has elevated BNP 1940, mildly elevated troponins 0.04->0.037, and +4 edema. * Echo 05/01/2021-EF 50 to 55%, mild left ventricular hypertrophy, right ventricle is mildly dilated, right ventricular volume overload, mild pulmonary hypertension. * Continue Lasix to 40mg IV BID. Pending nephrology recs * GDMT: ASA, ANDREW/ARB, BB, Statin. Hold ANDREW/ARB in setting of CHRISTOPHER * Continue metoprolol 12.5 BID, Lipitor 80mg QHS * Strict I&Os CHRISTOPHER on CKD * Patient has elevated K+ and creatinine with no known baseline. * Nephrology following DVT prophylaxis * Heparin SQ Diuresis, strict I/Os, Echo05/01/2021-EF 50 to 55%, mild left ventricular hypertrophy, right ventricle is mildly dilated, right ventricular volume overload, mild pulmonary hypertension. Patient seen in conjunction with Dr. Meli Castro who agrees with this plan of care. Will continue to follow - Patient Problems (1) Acute on chronic respiratory failure with hypoxia Current Visit: Yes Status: Acute (2) Congestive heart failure Current Visit: Yes Status: Acute Qualifiers: Heart failure type: unspecified Heart failure chronicity: acute Qualified Code(s): I50.9 - Heart failure, unspecified (3) DVT prophylaxis Current Visit: Yes Status: Acute (4) Obesity hypoventilation syndrome Current Visit: Yes Status: Acute (5) Renal failure Current Visit: Yes Status: Acute Qualifiers: Renal failure chronicity: unspecified chronicity Qualified Code(s): N19 - Unspecified kidney failure Subjective Date of service: 05/03/21 Principal diagnosis: Congestive heart failure Interval history: Patient lying in prone position on bed. Reports still short of breath Sinus 80s on with no events on monitor Objective Last Vital Signs Temp 98.0 F 05/03/21 12:10 Pulse 94 H 05/03/21 12:10 Resp 18 05/03/21 12:10 BP 140/86 05/03/21 12:10 Pulse Ox 96 05/03/21 12:10 - Physical Examination General: No Apparent Distress HEENT: Positive: PERRL Neck: Positive: trachea midline Cardiac: Positive: Reg Rate and Rhythm Lungs: Positive: Decreased Breath Sounds, Rales Neuro: Positive: Grossly Intact Abdomen: Positive: Soft, Active Bowel Sounds Skin: Negative: Rash, Suspicious Lesions, Ulceration Extremities: Present: upper extr. pulses, lower extr. pulses, +4 Edema - Labs and Meds Comprehensive Metabolic Panel 05/03/21 Range/Units 05:36 Sodium 139 D (137-145) mmol/L Potassium 5.5 H (3.6-5.0) mmol/L Chloride 98.5 (98-107) mmol/L Carbon Dioxide 34 H D (22-30) mmol/L BUN 29 H (9-20) mg/dL Creatinine 2.7 H (0.8-1.3) mg/dL Glucose 133 H (75-100) mg/dL Calcium 8.6 (8.4-10.2) mg/dL - Imaging and Cardiology EKG: report reviewed, image reviewed Echo: report reviewed - Telemetry EKG Rhythm: Sinus Rhythm - EKG Sinus rhythms and dysrhythmias: sinus rhythm
[2021-05-04] MEDS: FUROSEMIDE 40 MG/4 ML INJ IV SCH ×3 (05:43→18:40)
[2021-05-04 06:14] LABS: Basophils % (Auto) 0.8 % (0.0-1.8); Eosinophils % (Auto) 0.1 % (0.0-4.3); Lymphocytes # (Auto) 0.7 K/mm3 (1.2-5.4); Lymphocytes % (Auto) 16.7 % (13.4-35.0); Mean Corpuscular HGB Conc 31 % (32-34); Mean Corpuscular Volume 105 fl (84-94); Monocytes # (Auto) 0.5 K/mm3 (0.0-0.8); Monocytes % (Auto) 11.3 % (0.0-7.3); Platelet Count 217 K/mm3 (140-440); Red Blood Count 5.53 M/mm3 (3.65-5.03); Red Cell Distribution Width 16.1 % (13.2-15.2)
[2021-05-04 06:17] LABS: Hematocrit 58.2 % (35.5-45.6); Hemoglobin 18.1 gm/dl (11.8-15.2)
[2021-05-04 06:18] LABS: Calcium 9.2 mg/dL (8.4-10.2)
[2021-05-04] MEDS ORDERED: SODIUM POLYSTYRENE 15 GM/60 ML ORAL LIQD PO NR (08:48)
[2021-05-04] MEDS: ASPIRIN 81 MG TAB CHEW PO SCH (09:47)
[2021-05-04] MEDS: METOPROLOL TARTRATE 25 MG TAB PO SCH ×2 (09:47→22:59)
[2021-05-04] MEDS: HEPARIN 5,000 UNIT/1 ML VIAL SUB-Q SCH ×3 (09:48→23:05)
--- NOTE | 2021-05-04 10:21 | Progress Note ---
Assessment and Plan Assessment and plan: Acute on chronic hypoxemic respiratory failure Acute diastolic heart failure. Pulmonary hypertension Acute COPD exacerbation Acute kidney injury. Diabetes mellitus type 2. Obesity hypoventilation syndrome. Obstructive sleep apnea. Morbid obesity. 05/03/2021. Echocardiogram revealed left ventricular size normal with systolic function also normal EF 50 to 55%. Mild concentric left ventricular hypertrophy. Right ventricular volume overload. RVSP 48 mmHg consistent with pulmonary hypertension. However, VQ scan showed no evidence of PE. Also, patient appears to have CHRISTOPHER in the setting of decompensated CHF. Renal ultrasound is suggestive of CKD with no hydronephrosis or signs of obstruction. Baseline creatinine unknown. Continue per nephrology recommendations the patient will be counseled on the importance of weight loss and exercise prior to discharge. 05/04/2021. Patient was poorly responsive and somnolent this morning. Therefore, ABG was obtained which revealed pH of 7.09, PCO2 of 123 and PO2 of 86. Patient will be transferred to the ICU but currently no beds available. Respiratory therapy reports patient more responsive after ABG was obtained and conversive. We will attempt continue BiPAP and transfer when bed is available. Consider intubation and mechanical ventilation if patient deteriorates. Recheck ABG after changing BiPAP settings. Pulmonary consulted History Interval history: No new issues overnight. Patient noted to be somnolent this morning poorly responsive. Hospitalist Physical - Constitutional Vitals: Temp Pulse Resp BP Pulse Ox 97.4 F L 86 20 113/57 84 05/04/21 08:15 05/04/21 09:47 05/04/21 08:15 05/04/21 09:47 05/04/21 08:15 General appearance: Present: no acute distress, well-nourished, other (Morbidly obese) - EENT Eyes: Present: PERRL, EOM intact ENT: hearing intact, clear oral mucosa, dentition normal - Neck Neck: Present: supple, normal ROM - Respiratory Respiratory effort: normal Respiratory: bilateral: CTA - Cardiovascular Rhythm: regular Heart Sounds: Present: S1 & S2. Absent: gallop, rub - Extremities Extremities: no ischemia, No edema, Full ROM - Abdominal General gastrointestinal: soft, non-tender, non-distended, normal bowel sounds - Integumentary Integumentary: Present: clear, warm, dry - Neurologic Neurologic: CNII-XII intact, moves all extremities HEART Score - HEART Score Troponin: Troponin T 0.035 ng/mL (0.00-0.029) H 05/03/21 05:36 Results - Labs CBC & Chem 7: 05/04/21 05:36 05/04/21 05:36 Labs: Laboratory Last Values WBC 4.1 K/mm3 (4.5-11.0) L 05/04/21 05:36 RBC 5.53 M/mm3 (3.65-5.03) H 05/04/21 05:36 Hgb 18.1 gm/dl (11.8-15.2) H 05/04/21 05:36 Hct 58.2 % (35.5-45.6) H 05/04/21 05:36 MCV 105 fl (84-94) H 05/04/21 05:36 MCH 33 pg (28-32) H 05/04/21 05:36 MCHC 31 % (32-34) L 05/04/21 05:36 RDW 16.1 % (13.2-15.2) H 05/04/21 05:36 Plt Count 217 K/mm3 (140-440) 05/04/21 05:36 Lymph % (Auto) 16.7 % (13.4-35.0) 05/04/21 05:36 [place] % (Auto) 11.3 % (0.0-7.3) H 05/04/21 05:36 Eos % (Auto) 0.1 % (0.0-4.3) 05/04/21 05:36 Baso % (Auto) 0.8 % (0.0-1.8) 05/04/21 05:36 Lymph # (Auto) 0.7 K/mm3 (1.2-5.4) L 05/04/21 05:36 [place] # (Auto) 0.5 K/mm3 (0.0-0.8) 05/04/21 05:36 Eos # (Auto) 0.0 K/mm3 (0.0-0.4) 05/04/21 05:36 Baso # (Auto) 0.0 K/mm3 (0.0-0.1) 05/04/21 05:36 Seg Neutrophils % 71.1 % (40.0-70.0) H 05/04/21 05:36 Seg Neutrophils # 2.9 K/mm3 (1.8-7.7) 05/04/21 05:36 ABG pH 7.092 (7.320-7.450) L 05/04/21 09:15 POC ABG pCO2 123.3 mmHg (32.0-48.0) H 05/04/21 09:15 POC ABG pO2 86.0 mmHg (83-108) 05/04/21 09:15 POC ABG HCO3 36.7 05/04/21 09:15 ABG O2 Saturation 95.7 (0-100) 05/04/21 09:15 POC ABG Base Excess 0.8 05/04/21 09:15 ABG Hemoglobin 19.2 (12.0-17.5) H 05/04/21 09:15 ABG Oxyhemoglobin 94.8 (94-98) 05/04/21 09:15 ABG Methemoglobin 0.5 (0.0-1.5) 05/04/21 09:15 ABG Sodium 138.7 mmol/L (136.0-145.0) 05/04/21 09:15 ABG Potassium 4.9 mmol/L (3.40-4.50) H 05/04/21 09:15 ABG Chloride 98.0 mmol/L (98-107) 05/04/21 09:15 ABG Glucose 86 mg/dL (65-95) 05/04/21 09:15 Carboxyhemoglobin 0.4 (0.5-1.5) L 05/04/21 09:15 FiO2 % 40.0 05/04/21 09:15 Sodium 139 mmol/L (137-145) 05/04/21 05:36 Potassium 5.9 mmol/L (3.6-5.0) H 05/04/21 05:36 Chloride 97.0 mmol/L (98-107) L 05/04/21 05:36 Carbon Dioxide 38 mmol/L (22-30) H 05/04/21 05:36 Anion Gap 10 mmol/L 05/04/21 05:36 BUN 31 mg/dL (9-20) H 05/04/21 05:36 Creatinine 3.2 mg/dL (0.8-1.3) H 05/04/21 05:36 Estimated GFR 26 ml/min 05/04/21 05:36 BUN/Creatinine Ratio 10 % 05/04/21 05:36 Glucose 95 mg/dL (75-100) 05/04/21 05:36 Calcium 9.2 mg/dL (8.4-10.2) 05/04/21 05:36 Phosphorus 5.30 mg/dL (2.5-4.5) H 05/01/21 17:54 Magnesium 2.30 mg/dL (1.7-2.3) 05/01/21 18:58 Total Bilirubin 0.30 mg/dL (0.1-1.2) 05/01/21 18:58 AST 38 units/L (5-40) 05/01/21 18:58 ALT 22 units/L (7-56) 05/01/21 18:58 Alkaline Phosphatase 85 units/L (35-129) 05/01/21 18:58 Troponin T 0.035 ng/mL (0.00-0.029) H 05/03/21 05:36 NT-Pro-B Natriuret Pep 1940 pg/mL (0-450) H 05/01/21 17:54 Total Protein 5.9 g/dL (6.3-8.2) L 05/01/21 18:58 Albumin 1.7 g/dL (3.9-5) L 05/01/21 18:58 Albumin/Globulin Ratio 0.4 % 05/01/21 18:58 Triglycerides 121 mg/dL (2-149) 05/01/21 18:46 Cholesterol 248 mg/dL (50-199) H 05/01/21 18:46 LDL Cholesterol Direct 189 mg/dL (50-130) H 05/01/21 18:46 HDL Cholesterol 50 mg/dL (40-59) 05/01/21 18:46 Cholesterol/HDL Ratio 4.96 % 05/01/21 18:46 TSH 0.932 mlU/mL (0.270-4.200) 05/01/21 18:58 Free T4 0.85 ng/dL (0.76-1.46) 05/01/21 18:58 PTH Intact 100.1 pg/mL (15-65) H 05/03/21 05:36 Arterial Blood Glucose 86 mg/dL (65-95) 05/04/21 09:15 Arterial Blood Ionized Calcium 4.6 mg/dL (4.6-5.3) 05/04/21 09:15 Urine Color Yellow (Yellow) 05/01/21 17:56 Urine Turbidity Slightly-cloudy (Clear) 05/01/21 17:56 Urine pH 5.0 (5.0-7.0) 05/01/21 17:56 Ur Specific [place] 1.020 (1.003-1.030) 05/01/21 17:56 Urine Protein >500 mg/dL (Negative) 05/01/21 17:56 Urine Glucose (UA) 50 mg/dL (Negative) 05/01/21 17:56 Urine Ketones Neg mg/dL (Negative) 05/01/21 17:56 Urine Blood Mod (Negative) 05/01/21 17:56 Urine Nitrite Neg (Negative) 05/01/21 17:56 Urine Bilirubin Neg (Negative) 05/01/21 17:56 Urine Urobilinogen < 2.0 mg/dL (<2.0) 05/01/21 17:56 Ur Leukocyte Esterase Neg (Negative) 05/01/21 17:56 Urine WBC (Auto) 11.0 /HPF (0.0-6.0) H 05/01/21 17:56 Urine RBC (Auto) 7.0 /HPF (0.0-6.0) 05/01/21 17:56 U Epithel Cells (Auto) 2.0 /HPF (0-13.0) 05/01/21 17:56 Urine Bacteria (Auto) 1+ /HPF (Negative) 05/01/21 17:56 Urine Mucus Few /HPF 05/01/21 17:56 Urine Creatinine 207.2 mg/dL (0.1-20.0) H 05/02/21 Unknown Protein/Creatinin Ratio 0.27 05/02/21 Unknown Urine Sodium 52 mmol/L 05/02/21 Unknown Urine Total Protein 56 mg/dL (5-11.8) H 05/02/21 Unknown Microbiology: Microbiology 05/01/21 17:56 Urine,Clean Catch Urine Culture - Preliminary [place]/IV: Voiding Method Toilet Active Medications - Current Medications Current Medications: Generic Name Dose Route Start Last Admin Trade Name Freq PRN Reason Stop Dose Admin Acetaminophen 650 mg 05/01/21 18:44 Acetaminophen 325 Mg Tab PO Q4H PRN Pain MILD(1-3)/Fever >100.5/MEDLEY Albuterol 2.5 mg 05/01/21 18:44 Albuterol 2.5 Mg/3 Ml Nebu IH Q4HRT PRN Shortness Of Breath Aspirin 81 mg 05/03/21 10:00 05/04/21 09:47 Aspirin 81 Mg Tab Chew PO 81 mg QDAY NANETTE Administration Atorvastatin Calcium 80 mg 05/02/21 22:00 05/03/21 22:33 Atorvastatin 40 Mg Tab PO 80 mg QHS NANETTE Administration Furosemide 40 mg 05/02/21 18:00 05/04/21 05:43 Furosemide 40 Mg/4 Ml Inj IV 40 mg BID@0600,1800 NANETTE Administration Heparin Sodium (Porcine) 5,000 unit 05/01/21 22:00 05/04/21 09:48 Heparin 5,000 Unit/1 Ml Vial SUB-Q 5,000 unit Q12HR NANETTE Administration Hydromorphone HCl 0.5 mg 05/01/21 18:44 Hydromorphone 1 Mg/1 Ml Inj IV Q12H PRN Pain , Severe (7-10) Metoprolol Tartrate 12.5 mg 05/02/21 16:30 05/04/21 09:47 Metoprolol Tartrate 25 Mg Tab PO 12.5 mg BID NANETTE Administration Ondansetron HCl 4 mg 05/01/21 18:44 Ondansetron 4 Mg/2 Ml Inj IV Q8H PRN Nausea And Vomiting Oxycodone/Acetaminophen 1 tab 05/01/21 18:44 Oxycodone /Acetaminophen 5-325mg Tab PO Q12H PRN Pain, Moderate (4-6) Sodium Chloride 10 ml 05/01/21 22:00 05/04/21 09:48 Sodium Chloride 0.9% 10 Ml Flush Syringe IV 10 ml BID NANETTE Administration Sodium Chloride 10 ml 05/01/21 18:44 Sodium Chloride 0.9% 10 Ml Flush Syringe IV PRN PRN LINE FLUSH Sodium Polystyrene Sulfonate 60 gm 05/04/21 08:48 Sodium Polystyrene 15 Gm/60 Ml Oral Liqd PO 05/04/21 12:00 ONCE NR
--- NOTE | 2021-05-04 10:56 | Progress Note ---
Assessment and Plan Acute HFpEF with likely * Patient has elevated BNP 1940, mildly elevated troponins 0.04->0.037, and +4 edema. * Echo 05/01/2021-EF 50 to 55%, mild left ventricular hypertrophy, right ventricle is mildly dilated, right ventricular volume overload, mild pulmonary hypertension. * Continue Lasix to 40mg IV BID. Pending nephrology recs * GDMT: ASA, ANDREW/ARB, BB, Statin. Hold ANDREW/ARB in setting of CHRISTOPHER * Continue metoprolol 12.5 BID, Lipitor 80mg QHS * Strict I&Os Acute Respiratory failure * Patient on Bipap. Patient found to be hypercapnic and is to be transported to ICU * Pulmonology consulted CHRISTOPHER on CKD * Patient K+ and creatinine continue to elevate. * Nephrology following DVT prophylaxis * Heparin SQ Diuresis, strict I/Os. Patient being transported to ICU due to hypercapnia Patient seen in conjunction with Dr. Meli Castro who agrees with this plan of care. Will continue to follow - Patient Problems (1) Acute on chronic respiratory failure with hypoxia Current Visit: Yes Status: Acute (2) Congestive heart failure Current Visit: Yes Status: Acute Qualifiers: Heart failure type: unspecified Heart failure chronicity: acute Qualified Code(s): I50.9 - Heart failure, unspecified (3) DVT prophylaxis Current Visit: Yes Status: Acute (4) Obesity hypoventilation syndrome Current Visit: Yes Status: Acute (5) Renal failure Current Visit: Yes Status: Acute Qualifiers: Renal failure chronicity: unspecified chronicity Qualified Code(s): N19 - Unspecified kidney failure (6) Acute on chronic respiratory failure with hypoxemia Current Visit: Yes Status: Acute (7) Scrotal edema Current Visit: Yes Status: Acute Subjective Principal diagnosis: Congestive heart failure Interval history: Patient somnolent sitting in bed on CPAP. Sinus 90s on with no events on monitor Objective Last Vital Signs Temp 97.4 F L 05/04/21 08:15 Pulse 86 05/04/21 09:47 Resp 20 05/04/21 08:15 BP 113/57 05/04/21 09:47 Pulse Ox 84 05/04/21 08:15 - Physical Examination General: No Apparent Distress, Other (somnolent) HEENT: Positive: PERRL Neck: Positive: trachea midline Cardiac: Positive: Reg Rate and Rhythm Lungs: Positive: Decreased Breath Sounds Neuro: Positive: Grossly Intact Abdomen: Positive: Soft, Active Bowel Sounds Skin: Negative: Rash, Suspicious Lesions, Ulceration Extremities: Present: upper extr. pulses, lower extr. pulses, +4 Edema - Labs and Meds CBC 05/04/21 Range/Units 05:36 WBC 4.1 L (4.5-11.0) K/mm3 RBC 5.53 H (3.65-5.03) M/mm3 Hgb 18.1 H (11.8-15.2) gm/dl Hct 58.2 H (35.5-45.6) % Plt Count 217 (140-440) K/mm3 Lymph # (Auto) 0.7 L (1.2-5.4) K/mm3 [facility] # (Auto) 0.5 (0.0-0.8) K/mm3 Eos # (Auto) 0.0 (0.0-0.4) K/mm3 Baso # (Auto) 0.0 (0.0-0.1) K/mm3 Comprehensive Metabolic Panel 05/04/21 Range/Units 05:36 Sodium 139 (137-145) mmol/L Potassium 5.9 H (3.6-5.0) mmol/L Chloride 97.0 L (98-107) mmol/L Carbon Dioxide 38 H (22-30) mmol/L BUN 31 H (9-20) mg/dL Creatinine 3.2 H (0.8-1.3) mg/dL Glucose 95 (75-100) mg/dL Calcium 9.2 (8.4-10.2) mg/dL - Imaging and Cardiology EKG: report reviewed, image reviewed Echo: report reviewed - Telemetry EKG Rhythm: Sinus Rhythm - EKG Sinus rhythms and dysrhythmias: sinus rhythm
--- NOTE | 2021-05-04 14:55 | Consultation ---
History of Present Illness Consult date: 05/04/21 Requesting physician: TERESA COLON Reason for consult: other (Acute on Chronic Hypercapnic and hypoxemic Respiratory failure) History of present illness: PULMONARY/CCM CONSULT NOTE (Full dictation # [id number]) Please see dictated notes for full details Past History Past Medical History: diabetes Past Surgical History: No surgical history, Other (Reviewed) Social history: single. denies: smoking, alcohol abuse, prescription drug abuse Family history: diabetes, hypertension Medications and Allergies Allergies Allergy/AdvReac Type Severity Reaction Status Date / Time No Known Allergies Allergy Unverified 05/01/21 14:31 Home Medications Medication Instructions Recorded Confirmed Last Taken Type No Known Home Medications [No 05/02/21 05/02/21 Unknown History Reported Home Medications] Active Meds: Active Medications Acetaminophen (Acetaminophen 325 Mg Tab) 650 mg PO Q4H PRN PRN Reason: Pain MILD(1-3)/Fever >100.5/[place] Albuterol (Albuterol 2.5 Mg/3 Ml Nebu) 2.5 mg IH Q4HRT PRN PRN Reason: Shortness Of Breath Aspirin (Aspirin 81 Mg Tab Chew) 81 mg PO QDAY [facility] Last Admin: 05/04/21 09:47 Dose: 81 mg Documented by: Atorvastatin Calcium (Atorvastatin 40 Mg Tab) 80 mg PO QHS [facility] Last Admin: 05/03/21 22:33 Dose: 80 mg Documented by: Furosemide (Furosemide 40 Mg/4 Ml Inj) 40 mg IV BID@0600,1800 [facility] Last Admin: 05/04/21 05:43 Dose: 40 mg Documented by: Heparin Sodium (Porcine) (Heparin 5,000 Unit/1 Ml Vial) 5,000 unit SUB-Q Q12HR [facility] Last Admin: 05/04/21 09:48 Dose: 5,000 unit Documented by: Hydromorphone HCl (Hydromorphone 1 Mg/1 Ml Inj) 0.5 mg IV Q12H PRN PRN Reason: Pain , Severe (7-10) Metoprolol Tartrate (Metoprolol Tartrate 25 Mg Tab) 12.5 mg PO BID [facility] Last Admin: 05/04/21 09:47 Dose: 12.5 mg Documented by: Ondansetron HCl (Ondansetron 4 Mg/2 Ml Inj) 4 mg IV Q8H PRN PRN Reason: Nausea And Vomiting Oxycodone/Acetaminophen (Oxycodone /Acetaminophen 5-325mg Tab) 1 tab PO Q12H PRN PRN Reason: Pain, Moderate (4-6) Sodium Chloride (Sodium Chloride 0.9% 10 Ml Flush Syringe) 10 ml IV BID NANETTE Last Admin: 05/04/21 09:48 Dose: 10 ml Documented by: Sodium Chloride (Sodium Chloride 0.9% 10 Ml Flush Syringe) 10 ml IV PRN PRN PRN Reason: LINE FLUSH Physical Examination Vital signs: Vital Signs Temp Pulse Resp BP Pulse Ox 98.7 F 100 H 22 121/88 85 05/01/21 14:35 05/01/21 14:35 05/01/21 14:35 05/01/21 14:35 05/01/21 14:35 Results - Laboratory Findings CBC and BMP: 05/04/21 05:36 05/04/21 14:41 ABG ABG pH 7.092 (7.320-7.450) L 05/04/21 09:15 POC ABG pCO2 123.3 mmHg (32.0-48.0) H 05/04/21 09:15 POC ABG pO2 86.0 mmHg (83-108) 05/04/21 09:15 POC ABG HCO3 36.7 05/04/21 09:15 ABG O2 Saturation 95.7 (0-100) 05/04/21 09:15 Abnormal lab findings: Abnormal Labs 05/01/21 05/01/21 05/01/21 17:54 17:54 17:56 WBC 4.3 L RBC 5.91 H Hgb 19.2 H Hct 59.5 H MCV 101 H MCH MCHC RDW 16.0 H [place] % (Auto) 12.3 H Lymph # (Auto) Seg Neutrophils % ABG pH POC ABG pCO2 ABG Hemoglobin ABG Potassium Carboxyhemoglobin Sodium 136 L Potassium 5.5 H Chloride 96.9 L Carbon Dioxide 34 H BUN 25 H Creatinine 2.7 H Glucose Phosphorus 5.30 H Troponin T NT-Pro-B Natriuret Pep 1940 H Total Protein Albumin 2.0 L Cholesterol LDL Cholesterol Direct PTH Intact Urine WBC (Auto) 11.0 H Urine Creatinine Urine Total Protein 05/01/21 05/01/21 05/02/21 18:46 18:58 Unknown WBC RBC Hgb Hct MCV MCH MCHC RDW [place] % (Auto) Lymph # (Auto) Seg Neutrophils % ABG pH POC ABG pCO2 ABG Hemoglobin ABG Potassium Carboxyhemoglobin Sodium 132 L Potassium 5.4 H Chloride 97.8 L Carbon Dioxide BUN 26 H Creatinine 2.3 H Glucose 101 H Phosphorus Troponin T 0.040 H NT-Pro-B Natriuret Pep Total Protein 5.9 L Albumin 1.7 L Cholesterol 248 H LDL Cholesterol Direct 189 H PTH Intact Urine WBC (Auto) Urine Creatinine 207.2 H Urine Total Protein 56 H 05/03/21 05/03/21 05/04/21 05:36 05:36 05:36 WBC RBC Hgb Hct MCV MCH MCHC RDW [place] % (Auto) Lymph # (Auto) Seg Neutrophils % ABG pH POC ABG pCO2 ABG Hemoglobin ABG Potassium Carboxyhemoglobin Sodium Potassium 5.5 H 5.9 H Chloride 97.0 L Carbon Dioxide 34 H D 38 H BUN 29 H 31 H Creatinine 2.7 H 3.2 H Glucose 133 H Phosphorus Troponin T 0.035 H NT-Pro-B Natriuret Pep Total Protein Albumin Cholesterol LDL Cholesterol Direct PTH Intact 100.1 H Urine WBC (Auto) Urine Creatinine Urine Total Protein 05/04/21 05/04/21 05:36 09:15 WBC 4.1 L RBC 5.53 H Hgb 18.1 H Hct 58.2 H MCV 105 H MCH 33 H MCHC 31 L RDW 16.1 H [place] % (Auto) 11.3 H Lymph # (Auto) 0.7 L Seg Neutrophils % 71.1 H ABG pH 7.092 L POC ABG pCO2 123.3 H ABG Hemoglobin 19.2 H ABG Potassium 4.9 H Carboxyhemoglobin 0.4 L Sodium Potassium Chloride Carbon Dioxide BUN Creatinine Glucose Phosphorus Troponin T NT-Pro-B Natriuret Pep Total Protein Albumin Cholesterol LDL Cholesterol Direct PTH Intact Urine WBC (Auto) Urine Creatinine Urine Total Protein
[2021-05-04 15:54] LABS: Calcium 8.6 mg/dL (8.4-10.2)
--- NOTE | 2021-05-04 19:24 | Progress Note ---
Assessment and Plan 1. Acute kidney injury: CHRISTOPHER in the setting of decompensated CHF. Low FeNa. Renal US suggestive of CKD, no hydro. Monitor renal function. Creatinine level increasing. Avoid nephrotoxic agents. Meds dosage based on GFR. Monitor for [employer] needs. 2. FEN: Hyperkalemia, kayexalate ordered, on Lasix, monitor. Hyponatremia, monitor. Volume overload, on IV Lasix. Monitor lytes and volume status. 3. Acute on chronic respiratory failure with hypoxemia: 2/2 volume overload due to CHF. On BIPAP. 4. Decompensated CHF: New onset congestive heart failure. Echocardiogram shwoed normal EF, dilated RV and pulm HTN. On Lasix 40 mg twice daily, Metoprolol, strict I/Os, fluid and salt restriction. 5. Obesity hypoventilation syndrome. 6. DM type 2. 7. Polycythemia, POA: Monitor. 8. Hypertension: BP controlled. Subjective: Patient was seen and examined at the bedside. Examination: General appearance: well-developed, appears stated age, morbidly obese, on BIPAP HEENT: atraumatic Neck: trachea midline Respiratory: ctab Heart: S1S2, regular, no murmur Abdomen: soft, bowel sounds heard, NT Integumentary: no obvious rash Neurologic: lethargic, opens eyes, not conversing Ext: LE, abd wall and dependent edema noted Subjective Date of service: 05/04/21 Principal diagnosis: Congestive heart failure Objective - Vital Signs Vital signs: Vital Signs - 12hr 05/04/21 05/04/21 05/04/21 07:54 08:15 09:47 Temperature 97.4 F L Pulse Rate 86 86 Pulse Rate [ Apical] Respiratory 20 Rate Blood Pressure 113/57 113/57 O2 Sat by Pulse 97 84 Oximetry 05/04/21 05/04/21 05/04/21 10:00 11:54 12:51 Temperature 97.8 F Pulse Rate 84 Pulse Rate [ 88 Apical] Respiratory 22 18 20 Rate Blood Pressure 98/56 O2 Sat by Pulse 90 95 90 Oximetry 05/04/21 13:20 Temperature Pulse Rate 80 Pulse Rate [ Apical] Respiratory Rate Blood Pressure O2 Sat by Pulse Oximetry - Lab 05/04/21 05:36 05/04/21 14:41 Most recent lab results ABG pH 7.092 (7.320-7.450) L 05/04/21 09:15 ABG O2 Saturation 95.7 (0-100) 05/04/21 09:15 Calcium 8.6 mg/dL (8.4-10.2) 05/04/21 14:41 Phosphorus 5.30 mg/dL (2.5-4.5) H 05/01/21 17:54 Magnesium 2.30 mg/dL (1.7-2.3) 05/01/21 18:58 Urine Creatinine 207.2 mg/dL (0.1-20.0) H 05/02/21 Unknown Urine Sodium 52 mmol/L 05/02/21 Unknown Urine Total Protein 56 mg/dL (5-11.8) H 05/02/21 Unknown Medications & Allergies - Medications Allergies/Adverse Reactions: Allergies No Known Allergies Allergy (Unverified 05/01/21 14:31) Home Medications: Home Medications Medication Instructions Recorded Confirmed Last Taken Type No Known Home Medications [No 05/02/21 05/02/21 Unknown History Reported Home Medications] Active Medications: Generic Name Dose Route Start Last Admin Trade Name Freq PRN Reason Stop Dose Admin Acetaminophen 650 mg 05/01/21 18:44 Acetaminophen 325 Mg Tab PO Q4H PRN Pain MILD(1-3)/Fever >100.5/[place] Albuterol 2.5 mg 05/01/21 18:44 Albuterol 2.5 Mg/3 Ml Nebu IH Q4HRT PRN Shortness Of Breath Aspirin 81 mg 05/03/21 10:00 05/04/21 09:47 Aspirin 81 Mg Tab Chew PO 81 mg QDAY NANETTE Administration Atorvastatin Calcium 80 mg 05/02/21 22:00 05/03/21 22:33 Atorvastatin 40 Mg Tab PO 80 mg QHS NANETTE Administration Furosemide 40 mg 05/02/21 18:00 05/04/21 18:40 Furosemide 40 Mg/4 Ml Inj IV Not Given BID@0600,1800 [facility] Heparin Sodium (Porcine) 5,000 unit 05/01/21 22:00 05/04/21 09:48 Heparin 5,000 Unit/1 Ml Vial SUB-Q 5,000 unit Q12HR NANETTE Administration Hydromorphone HCl 0.5 mg 05/01/21 18:44 Hydromorphone 1 Mg/1 Ml Inj IV Q12H PRN Pain , Severe (7-10) Metoprolol Tartrate 12.5 mg 05/02/21 16:30 05/04/21 09:47 Metoprolol Tartrate 25 Mg Tab PO 12.5 mg BID NANETTE Administration Ondansetron HCl 4 mg 05/01/21 18:44 Ondansetron 4 Mg/2 Ml Inj IV Q8H PRN Nausea And Vomiting Oxycodone/Acetaminophen 1 tab 05/01/21 18:44 Oxycodone /Acetaminophen 5-325mg Tab PO Q12H PRN Pain, Moderate (4-6) Sodium Chloride 10 ml 05/01/21 22:00 05/04/21 09:48 Sodium Chloride 0.9% 10 Ml Flush Syringe IV 10 ml BID NANETTE Administration Sodium Chloride 10 ml 05/01/21 18:44 Sodium Chloride 0.9% 10 Ml Flush Syringe IV PRN PRN LINE FLUSH
--- NOTE | 2021-05-05 03:08 | Consultation ---
DATE OF CONSULTATION: 05/04/2021 PULMONARY CONSULTATION NOTE CONSULTING PHYSICIAN: Dr. Dsouza. REASON FOR CONSULTATION: Hypercapnic respiratory failure. CHIEF COMPLAINT AND HISTORY OF PRESENT ILLNESS: The patient is a 36-year-old male with past medical history significant for diagnosis of obesity, hypoventilation syndrome, on home noninvasive ventilation, but not compliant, who came into the emergency room complaining of being swollen and having difficulty breathing. It had been increasing over the preceding 2 weeks. He also admitted to lower extremity swelling and testicular swelling, progressively worsening symptoms. He was diagnosed with new onset CHF as well as a cardiorenal syndrome and admitted to the hospital for further management. Earlier today, the patient, I believe, was difficult to arouse. Arterial blood gas showed a pH of about 7.09 and a pCO2 of 123. We are asked to assist with management. The patient had been placed earlier on the AVAPS mode of noninvasive ventilation with set target minutes and volumes and was doing better. He had taken the mask off. He was talking, very alert, very appropriate. He denied chest pain, was no longer drowsy. He did get an arterial blood gas earlier, but did not remember when he got the stick, suggesting he was really significantly obtunded at that time. The patient denies a history of tobacco use or abuse. He admits to not getting his COVID-19 vaccination. This really is as much of the history of presentation as I have. PAST MEDICAL HISTORY: Again, significant for hypoventilation syndrome, morbid obesity, diabetes, cardiomyopathy. PAST SURGICAL HISTORY: Denied. MEDICATIONS: He was on at the time I stopped by to see him were reviewed, pertinent medications included the following: Tylenol 650 mg p.o. q.4 hours p.r.n. mild pain or fever, albuterol 2.5 mg nebulized q.4 hours p.r.n. shortness of breath, baby aspirin 81 mg p.o. daily, Lipitor 80 mg p.o. at bedtime, Lasix 40 mg IV b.i.d., heparin 5000 units subQ q.12h., Dilaudid 0.5 mg IV q.12 hours p.r.n. severe pain, metoprolol 12.5 mg p.o. b.i.d., Zofran 4 mg IV q.8 hours p.r.n. nausea and vomiting, Percocet 5/325 one tablet p.o. q.12 hours p.r.n. moderate pain. ALLERGIES: No known drug allergies. DIET: Morbidly obese. Denies acute weight loss or gain in the preceding few weeks to months. FAMILY AND SOCIAL HISTORY: Lives in the community. Denies current alcohol, tobacco or illicit drug use or abuse. He does admit to occasional tobacco use in the past. FAMILY HISTORY: There is a family history of diabetes and hypertension. REVIEW OF SYSTEMS: No loss of consciousness. No new onset seizures. No new onset focal weakness. Denies gross hematochezia or melena. Denies gross hematuria or dysuria. No hematemesis, no hemoptysis. Complete 13 system review of system was obtained. Pertinent positives and/or negatives as in body of history above, otherwise noncontributory. PHYSICAL EXAMINATION: VITAL SIGNS: On presentation, he was afebrile, temperature 98.7 degrees Fahrenheit, pulse of 100, respiratory rate of 22, blood pressure 121/88, O2 sats were 85%, inspired oxygen concentration at that time was not recorded. He has been afebrile since. O2 sats were 98% on 4 liters nasal cannula at the time of my evaluation. GENERAL: Again, he is a morbidly obese young male. Normocephalic, atraumatic, talking to me in full sentences with mildly increased respiratory effort, mostly based on his anatomy. HEENT: Anicteric. No conjunctival erythema. Oropharynx was moist. No gross jugular venous distention, no thyromegaly. He does have a large neck circumference. NECK: Grossly, there were no palpable lymph nodes in the supraclavicular or submandibular lymph node chains. LUNGS: Auscultation of both lung lobo significant only for diminished bilateral breath sounds, slightly prolonged expiratory phase; however, no active wheezing or rhonchi. HEART: Sounds 1 and 2 are heard at the time of my evaluation, regular in rate and rhythm without overt rubs or murmurs. ABDOMEN: Soft, full, protuberant. Bowel sounds are positive, nontender, no palpable hepatosplenomegaly. EXTREMITIES: Without overt digital clubbing or cyanosis, no pedal edema. Pedal pulses are 2+ bilaterally. NEUROLOGIC: Pupils are equal, round, about 4 mm, reactive to light. Extraocular muscle movements are intact. He moves all 4 extremities spontaneously. SKIN: Normal turgor in the areas I examined without overt cellulitis or rash. Please see the wound care nurses' notes for full description of his skin. PSYCHIATRIC: Mood was normal. Affect was appropriate. He had intact judgment and insight. LABORATORY DATA: From my review are as follows: Admission white cell count 4300, hemoglobin 19.2, hematocrit 59.5, platelet count 260. No manual differential. Arterial blood gas today showed a pH of 7.09, pCO2 of 123, pO2 of 86 and that was on and 40% FiO2. Serum sodium was 132 at presentation, potassium was 5.4, chloride was 98, bicarbonate was 25, BUN 26, creatinine 2.3, glucose was 101. Liver function tests essentially within normal limits. BNP was 1940. Troponin was up at 0.04. LDL cholesterol was 189. TSH within normal limits. Urinalysis was negative for nitrites and leukocyte esterase. He did have 11 white cells per high power field. Urine culture, no growth to date. Chest x-ray shows gross cardiomegaly and mild interstitial edema, it is the best way I can describe that. He had a nuclear medicine perfusion lung scan that came back low probability. The 2D echo shows LVEF of 50-55%, flattened septum consistent with right ventricular volume and pressure overload, indeterminate diastolic function. RV systolic pressure was 48 mmHg. ASSESSMENT: 1. CO2 narcosis. 2. Acute on chronic hypercapnic and hypoxemic respiratory failure. 3. Pulmonary hypertension. 4. Obesity hypoventilation syndrome/obstructive sleep apnea syndrome. 5. Acute kidney injury. 6. Hemoconcentration. 7. Hyperkalemia at presentation. 8. Morbid obesity. 9. Diabetes. PLAN: He is refusing a repeat arterial blood gas. His pCO2 is obviously better based on his clinical status at this point. He is agreeing to use the noninvasive ventilation at night when he is asleep and p.r.n. during the day. Oxygen should be weaned to keep sats greater than or equal to about 88-90%. I do think it is important to rule out coronavirus infection in this gentleman and I will order a test. I have encouraged him to get vaccination which he has not got until this point. He is appropriately on DVT prophylaxis. A venous thromboembolic disorder workup is negative so far, however, I will get bilateral lower extremity Dopplers to continue this. I will defer to the attending for further management of his chronic problems. Tobacco abstinence has been counseled. Flu and pneumonia vaccination will be addressed per protocol. Thank you very much for the consult. We will follow along and make further recommendations as picture progresses/becomes clearer. I also recommended weight loss and lifestyle modification to the patient. Glycemic control should be for a target blood glucose of less than 180 mg/dL. TID: [id number] RECEIPT: [id number] BERE/LUIS
--- NOTE | 2021-05-05 05:13 | Progress Note ---
Assessment and Plan Acute on chronic hypoxemic-hypercapnic respiratory failure Acute diastolic heart failure. Pulmonary hypertension Acute kidney injury on CKD. Diabetes mellitus type 2. Obesity hypoventilation syndrome. Obstructive sleep apnea. Morbid obesity -Supplemental oxygen, titrate to keep O2 sats 88-90%, restrictive oxygen strategies -Follow up ABG ordered -Counselled on the need for compliance with BIPAP -Optimization of heart failure measures, while monitoring renal function and electrolyte profile -Avoid nephrotoxins, adjust medications for GFR/CrCL -Accucheck with glycemic control. Target blood glucose 140-180mg/dL -Home oxygen evaluation on discharge -Will need outpatient pulmonary follow up to evaluate -Weight loss and lifestyle modifications -VTE prophylaxis- subcut Heparin Subjective Date of service: 05/05/21 Principal diagnosis: Congestive heart failure, acute hypercapnic resp failure Interval history: Follow up fro acute hypoxic-hypercapnic resp failure; Morbid obesity with POLI; Pulmonary HTN Seen and examined. Vitals, labs, medications, chart and imaging reviewed. No adverse overnight events, lying quietly with FMM to BIPAP. Sleeping but rousable with appropriate responses to questions. Denies any chest pain, no shortness of breath, no fevers or chills. No nausea or vomiting. Objective - Exam Narrative Exam: General appearance: Present: no acute distress, well-nourished, other (Morbidly obese) - EENT Eyes: Present: PERRL, EOM intact ENT: hearing intact, clear oral mucosa, dentition normal - Neck Neck: Present: supple, normal ROM - Respiratory Respiratory effort: normal Respiratory: bilateral: CTA - Cardiovascular Rhythm: regular Heart Sounds: Present: S1 & S2. Absent: gallop, rub - Extremities Extremities: no ischemia, No edema, Full ROM - Abdominal General gastrointestinal: soft, non-tender, non-distended, normal bowel sounds - Integumentary Integumentary: Present: clear, warm, dry - Neurologic Neurologic: CNII-XII intact, moves all extremities Vital Signs - 12hr 05/04/21 05/04/21 05/04/21 18:32 19:48 21:10 Temperature 98.3 F 98.6 F Pulse Rate 97 H 99 H Pulse Rate [ 88 Apical] Respiratory 20 18 22 Rate Blood Pressure 138/95 145/91 O2 Sat by Pulse 86 86 88 Oximetry 05/04/21 05/04/21 05/05/21 22:30 23:25 00:02 Temperature 97.9 F Pulse Rate 102 H 98 H Pulse Rate [ Apical] Respiratory 34 H 20 Rate Blood Pressure 142/99 O2 Sat by Pulse 76 L 93 98 Oximetry 05/05/21 04:42 Temperature 98.8 F Pulse Rate 89 Pulse Rate [ Apical] Respiratory 22 Rate Blood Pressure 146/96 O2 Sat by Pulse 97 Oximetry CBC and BMP: 05/04/21 05:36 05/08/21 04:42 ABG, PT/INR, D-dimer: ABG ABG pH 7.092 (7.320-7.450) L 05/04/21 09:15 POC ABG pCO2 123.3 mmHg (32.0-48.0) H 05/04/21 09:15 POC ABG pO2 86.0 mmHg (83-108) 05/04/21 09:15 POC ABG HCO3 36.7 05/04/21 09:15 ABG O2 Saturation 95.7 (0-100) 05/04/21 09:15 Abnormal lab findings: Abnormal Labs 05/01/21 05/01/21 05/01/21 17:54 17:54 17:56 WBC 4.3 L RBC 5.91 H Hgb 19.2 H Hct 59.5 H MCV 101 H MCH MCHC RDW 16.0 H [place] % (Auto) 12.3 H Lymph # (Auto) Seg Neutrophils % ABG pH POC ABG pCO2 ABG Hemoglobin ABG Potassium Carboxyhemoglobin Sodium 136 L Potassium 5.5 H Chloride 96.9 L Carbon Dioxide 34 H BUN 25 H Creatinine 2.7 H Glucose Phosphorus 5.30 H Troponin T NT-Pro-B Natriuret Pep 1940 H Total Protein Albumin 2.0 L Cholesterol LDL Cholesterol Direct PTH Intact Urine WBC (Auto) 11.0 H Urine Creatinine Urine Total Protein 05/01/21 05/01/21 05/02/21 18:46 18:58 Unknown WBC RBC Hgb Hct MCV MCH MCHC RDW [place] % (Auto) Lymph # (Auto) Seg Neutrophils % ABG pH POC ABG pCO2 ABG Hemoglobin ABG Potassium Carboxyhemoglobin Sodium 132 L Potassium 5.4 H Chloride 97.8 L Carbon Dioxide BUN 26 H Creatinine 2.3 H Glucose 101 H Phosphorus Troponin T 0.040 H NT-Pro-B Natriuret Pep Total Protein 5.9 L Albumin 1.7 L Cholesterol 248 H LDL Cholesterol Direct 189 H PTH Intact Urine WBC (Auto) Urine Creatinine 207.2 H Urine Total Protein 56 H 05/03/21 05/03/21 05/04/21 05:36 05:36 05:36 WBC RBC Hgb Hct MCV MCH MCHC RDW [place] % (Auto) Lymph # (Auto) Seg Neutrophils % ABG pH POC ABG pCO2 ABG Hemoglobin ABG Potassium Carboxyhemoglobin Sodium Potassium 5.5 H 5.9 H Chloride 97.0 L Carbon Dioxide 34 H D 38 H BUN 29 H 31 H Creatinine 2.7 H 3.2 H Glucose 133 H Phosphorus Troponin T 0.035 H NT-Pro-B Natriuret Pep Total Protein Albumin Cholesterol LDL Cholesterol Direct PTH Intact 100.1 H Urine WBC (Auto) Urine Creatinine Urine Total Protein 05/04/21 05/04/21 05/04/21 05:36 09:15 14:41 WBC 4.1 L RBC 5.53 H Hgb 18.1 H Hct 58.2 H MCV 105 H MCH 33 H MCHC 31 L RDW 16.1 H [place] % (Auto) 11.3 H Lymph # (Auto) 0.7 L Seg Neutrophils % 71.1 H ABG pH 7.092 L POC ABG pCO2 123.3 H ABG Hemoglobin 19.2 H ABG Potassium 4.9 H Carboxyhemoglobin 0.4 L Sodium Potassium Chloride 97.7 L Carbon Dioxide 34 H BUN 34 H Creatinine 3.0 H Glucose 108 H Phosphorus Troponin T NT-Pro-B Natriuret Pep Total Protein Albumin Cholesterol LDL Cholesterol Direct PTH Intact Urine WBC (Auto) Urine Creatinine Urine Total Protein Chest x-ray: image reviewed Additional Studies: Echocardiogram Echocardiogram revealed left ventricular size normal with systolic function also normal EF 50 to 55%. Mild concentric left ventricular hypertrophy. Right ventricular volume overload. RVSP 48 mmHg consistent with pulmonary hypertension. VQ scan -no evidence of PE.
[2021-05-05] MEDS: FUROSEMIDE 40 MG/4 ML INJ IV SCH (06:00)
[2021-05-05 07:58] LABS: Calcium 7.8 mg/dL (8.4-10.2)
--- NOTE | 2021-05-05 08:38 | Progress Note ---
Assessment and Plan Assessment and plan: Acute on chronic hypoxemic respiratory failure Acute diastolic heart failure. Pulmonary hypertension Acute kidney injury on CKD. Diabetes mellitus type 2. Obesity hypoventilation syndrome. Obstructive sleep apnea. Morbid obesity. 05/03/2021. Echocardiogram revealed left ventricular size normal with systolic function also normal EF 50 to 55%. Mild concentric left ventricular hypertrophy. Right ventricular volume overload. RVSP 48 mmHg consistent with pulmonary hypertension. However, VQ scan showed no evidence of PE. Also, patient appears to have CHRISTOPHER in the setting of decompensated CHF. Renal ultrasound is suggestive of CKD with no hydronephrosis or signs of obstruction. Baseline creatinine unknown. Continue per nephrology recommendations the patient will be counseled on the importance of weight loss and exercise prior to discharge. 05/04/2021. Patient was poorly responsive and somnolent this morning. Therefore, ABG was obtained which revealed pH of 7.09, PCO2 of 123 and PO2 of 86. Patient will be transferred to the ICU but currently no beds available. Respiratory therapy reports patient more responsive after ABG was obtained and conversive. We will attempt continue BiPAP and transfer when bed is available. Consider intubation and mechanical ventilation if patient deteriorates. Recheck ABG after changing BiPAP settings. Pulmonary consulted 05/05/2021. Continue BiPAP as clinically indicated. Pulmonary following. Follow-up ABG. Continue bronchodilators/nebulizer treatment. Continue diuresis per nephrology and cardiology recommendations. Continue GDMT for heart failure. Hold ANDREW/ARB in setting of CHRISTOPHER History Interval history: No new issues overnight. Patient much more responsive this morning Hospitalist Physical - Constitutional Vitals: Temp Pulse Resp BP Pulse Ox 98.8 F 89 22 146/96 97 05/05/21 04:42 05/05/21 04:42 05/05/21 04:42 05/05/21 04:42 05/05/21 04:42 General appearance: Present: no acute distress, well-nourished, other (Morbidly obese) - EENT Eyes: Present: PERRL, EOM intact ENT: hearing intact, clear oral mucosa, dentition normal - Neck Neck: Present: supple, normal ROM - Respiratory Respiratory effort: normal Respiratory: bilateral: CTA - Cardiovascular Rhythm: regular Heart Sounds: Present: S1 & S2. Absent: gallop, rub - Extremities Extremities: no ischemia, No edema, Full ROM - Abdominal General gastrointestinal: soft, non-tender, non-distended, normal bowel sounds - Integumentary Integumentary: Present: clear, warm, dry - Neurologic Neurologic: CNII-XII intact, moves all extremities HEART Score - HEART Score Troponin: Troponin T 0.035 ng/mL (0.00-0.029) H 05/03/21 05:36 Results - Labs CBC & Chem 7: 05/04/21 05:36 05/05/21 07:23 Labs: Laboratory Last Values WBC 4.1 K/mm3 (4.5-11.0) L 05/04/21 05:36 RBC 5.53 M/mm3 (3.65-5.03) H 05/04/21 05:36 Hgb 18.1 gm/dl (11.8-15.2) H 05/04/21 05:36 Hct 58.2 % (35.5-45.6) H 05/04/21 05:36 MCV 105 fl (84-94) H 05/04/21 05:36 MCH 33 pg (28-32) H 05/04/21 05:36 MCHC 31 % (32-34) L 05/04/21 05:36 RDW 16.1 % (13.2-15.2) H 05/04/21 05:36 Plt Count 217 K/mm3 (140-440) 05/04/21 05:36 Lymph % (Auto) 16.7 % (13.4-35.0) 05/04/21 05:36 [place] % (Auto) 11.3 % (0.0-7.3) H 05/04/21 05:36 Eos % (Auto) 0.1 % (0.0-4.3) 05/04/21 05:36 Baso % (Auto) 0.8 % (0.0-1.8) 05/04/21 05:36 Lymph # (Auto) 0.7 K/mm3 (1.2-5.4) L 05/04/21 05:36 [place] # (Auto) 0.5 K/mm3 (0.0-0.8) 05/04/21 05:36 Eos # (Auto) 0.0 K/mm3 (0.0-0.4) 05/04/21 05:36 Baso # (Auto) 0.0 K/mm3 (0.0-0.1) 05/04/21 05:36 Seg Neutrophils % 71.1 % (40.0-70.0) H 05/04/21 05:36 Seg Neutrophils # 2.9 K/mm3 (1.8-7.7) 05/04/21 05:36 ABG pH 7.092 (7.320-7.450) L 05/04/21 09:15 POC ABG pCO2 123.3 mmHg (32.0-48.0) H 05/04/21 09:15 POC ABG pO2 86.0 mmHg (83-108) 05/04/21 09:15 POC ABG HCO3 36.7 05/04/21 09:15 ABG O2 Saturation 95.7 (0-100) 05/04/21 09:15 POC ABG Base Excess 0.8 05/04/21 09:15 ABG Hemoglobin 19.2 (12.0-17.5) H 05/04/21 09:15 ABG Oxyhemoglobin 94.8 (94-98) 05/04/21 09:15 ABG Methemoglobin 0.5 (0.0-1.5) 05/04/21 09:15 ABG Sodium 138.7 mmol/L (136.0-145.0) 05/04/21 09:15 ABG Potassium 4.9 mmol/L (3.40-4.50) H 05/04/21 09:15 ABG Chloride 98.0 mmol/L (98-107) 05/04/21 09:15 ABG Glucose 86 mg/dL (65-95) 05/04/21 09:15 Carboxyhemoglobin 0.4 (0.5-1.5) L 05/04/21 09:15 FiO2 % 40.0 05/04/21 09:15 Sodium 139 mmol/L (137-145) 05/05/21 07:23 Potassium 4.6 mmol/L (3.6-5.0) 05/05/21 07:23 Chloride 100.3 mmol/L (98-107) 05/05/21 07:23 Carbon Dioxide 31 mmol/L (22-30) H 05/05/21 07:23 Anion Gap 12 mmol/L 05/05/21 07:23 BUN 36 mg/dL (9-20) H 05/05/21 07:23 Creatinine 3.0 mg/dL (0.8-1.3) H 05/05/21 07:23 Estimated GFR 28 ml/min 05/05/21 07:23 BUN/Creatinine Ratio 12 % 05/05/21 07:23 Glucose 93 mg/dL (75-100) 05/05/21 07:23 Calcium 7.8 mg/dL (8.4-10.2) L 05/05/21 07:23 Phosphorus 5.30 mg/dL (2.5-4.5) H 05/01/21 17:54 Magnesium 2.30 mg/dL (1.7-2.3) 05/01/21 18:58 Total Bilirubin 0.30 mg/dL (0.1-1.2) 05/01/21 18:58 AST 38 units/L (5-40) 05/01/21 18:58 ALT 22 units/L (7-56) 05/01/21 18:58 Alkaline Phosphatase 85 units/L (35-129) 05/01/21 18:58 Troponin T 0.035 ng/mL (0.00-0.029) H 05/03/21 05:36 NT-Pro-B Natriuret Pep 1940 pg/mL (0-450) H 05/01/21 17:54 Total Protein 5.9 g/dL (6.3-8.2) L 05/01/21 18:58 Albumin 1.7 g/dL (3.9-5) L 05/01/21 18:58 Albumin/Globulin Ratio 0.4 % 05/01/21 18:58 Triglycerides 121 mg/dL (2-149) 05/01/21 18:46 Cholesterol 248 mg/dL (50-199) H 05/01/21 18:46 LDL Cholesterol Direct 189 mg/dL (50-130) H 05/01/21 18:46 HDL Cholesterol 50 mg/dL (40-59) 05/01/21 18:46 Cholesterol/HDL Ratio 4.96 % 05/01/21 18:46 TSH 0.932 mlU/mL (0.270-4.200) 05/01/21 18:58 Free T4 0.85 ng/dL (0.76-1.46) 05/01/21 18:58 PTH Intact 100.1 pg/mL (15-65) H 05/03/21 05:36 Arterial Blood Glucose 86 mg/dL (65-95) 05/04/21 09:15 Arterial Blood Ionized Calcium 4.6 mg/dL (4.6-5.3) 05/04/21 09:15 Urine Color Yellow (Yellow) 05/01/21 17:56 Urine Turbidity Slightly-cloudy (Clear) 05/01/21 17:56 Urine pH 5.0 (5.0-7.0) 05/01/21 17:56 Ur Specific [place] 1.020 (1.003-1.030) 05/01/21 17:56 Urine Protein >500 mg/dL (Negative) 05/01/21 17:56 Urine Glucose (UA) 50 mg/dL (Negative) 05/01/21 17:56 Urine Ketones Neg mg/dL (Negative) 05/01/21 17:56 Urine Blood Mod (Negative) 05/01/21 17:56 Urine Nitrite Neg (Negative) 05/01/21 17:56 Urine Bilirubin Neg (Negative) 05/01/21 17:56 Urine Urobilinogen < 2.0 mg/dL (<2.0) 05/01/21 17:56 Ur Leukocyte Esterase Neg (Negative) 05/01/21 17:56 Urine WBC (Auto) 11.0 /HPF (0.0-6.0) H 05/01/21 17:56 Urine RBC (Auto) 7.0 /HPF (0.0-6.0) 05/01/21 17:56 U Epithel Cells (Auto) 2.0 /HPF (0-13.0) 05/01/21 17:56 Urine Bacteria (Auto) 1+ /HPF (Negative) 05/01/21 17:56 Urine Mucus Few /HPF 05/01/21 17:56 Urine Creatinine 207.2 mg/dL (0.1-20.0) H 05/02/21 Unknown Protein/Creatinin Ratio 0.27 05/02/21 Unknown Urine Sodium 52 mmol/L 05/02/21 Unknown Urine Total Protein 56 mg/dL (5-11.8) H 05/02/21 Unknown Microbiology: Microbiology 05/01/21 17:56 Urine,Clean Catch Urine Culture - Final [place]/IV: Voiding Method Urinal Active Medications - Current Medications Current Medications: Generic Name Dose Route Start Last Admin Trade Name Freq PRN Reason Stop Dose Admin Acetaminophen 650 mg 05/01/21 18:44 Acetaminophen 325 Mg Tab PO Q4H PRN Pain MILD(1-3)/Fever >100.5/MEDLEY Albuterol 2.5 mg 05/01/21 18:44 Albuterol 2.5 Mg/3 Ml Nebu IH Q4HRT PRN Shortness Of Breath Aspirin 81 mg 05/03/21 10:00 05/04/21 09:47 Aspirin 81 Mg Tab Chew PO 81 mg QDAY NANETTE Administration Atorvastatin Calcium 80 mg 05/02/21 22:00 05/04/21 22:59 Atorvastatin 40 Mg Tab PO 80 mg QHS NANETTE Administration Furosemide 40 mg 05/02/21 18:00 05/05/21 06:00 Furosemide 40 Mg/4 Ml Inj IV Not Given BID@0600,1800 [facility] Heparin Sodium (Porcine) 5,000 unit 05/01/21 22:00 05/04/21 23:05 Heparin 5,000 Unit/1 Ml Vial SUB-Q Not Given Q12HR NANETTE Hydromorphone HCl 0.5 mg 05/01/21 18:44 Hydromorphone 1 Mg/1 Ml Inj IV Q12H PRN Pain , Severe (7-10) Metoprolol Tartrate 12.5 mg 05/02/21 16:30 05/04/21 22:59 Metoprolol Tartrate 25 Mg Tab PO 12.5 mg BID NANETTE Administration Ondansetron HCl 4 mg 05/01/21 18:44 Ondansetron 4 Mg/2 Ml Inj IV Q8H PRN Nausea And Vomiting Oxycodone/Acetaminophen 1 tab 05/01/21 18:44 Oxycodone /Acetaminophen 5-325mg Tab PO Q12H PRN Pain, Moderate (4-6) Sodium Chloride 10 ml 05/01/21 22:00 05/04/21 22:59 Sodium Chloride 0.9% 10 Ml Flush Syringe IV 10 ml BID NANETTE Administration Sodium Chloride 10 ml 05/01/21 18:44 Sodium Chloride 0.9% 10 Ml Flush Syringe IV PRN PRN LINE FLUSH
[2021-05-05] MEDS: ASPIRIN 81 MG TAB CHEW PO SCH (09:28)
[2021-05-05] MEDS: HEPARIN 5,000 UNIT/1 ML VIAL SUB-Q SCH ×3 (09:29→22:04)
[2021-05-05] MEDS: METOPROLOL TARTRATE 25 MG TAB PO SCH ×2 (09:29→21:59)
--- NOTE | 2021-05-05 10:34 | Progress Note ---
Assessment and Plan This is a 36-year-old -[place] gentleman: 1. Acute HFpEF * Edema is likely multifactorial given renal function * Patient has been refusing Lasix for the last 2 doses for unclear reasons * Echo 05/01/2021-EF 50 to 55%, mild left ventricular hypertrophy, right ventricle is mildly dilated, right ventricular volume overload, mild pulmonary hypertension. * GDMT: Hold ANDREW/ARB in setting of CHRISTOPHER, will double metoprolol * Discontinue Lasix and start Bumex -discussed with nephrology * Strict I&Os * Unclear if documented I's and O's are accurate * Discussed importance of compliance with patient at length. It is not clear to me that patient understands gravity of his overall clinical condition. 2. Acute hypoxemic hypercapnic respiratory failure * Multifactorial - see above + obesity hypoventilation syndrome/likely obstructive sleep apnea * Pulmonary following CHRISTOPHER on CKD * Patient K+ and creatinine continue to elevate. * Nephrology following DVT prophylaxis * Heparin SQ - Patient Problems (1) Acute heart failure with preserved ejection fraction (HFpEF) Current Visit: Yes Status: Acute (2) Congestive heart failure Current Visit: Yes Status: Acute Qualifiers: Heart failure type: unspecified Heart failure chronicity: acute Qualified Code(s): I50.9 - Heart failure, unspecified (3) Hyperlipidemia Current Visit: Yes Status: Acute (4) Obesity hypoventilation syndrome Current Visit: Yes Status: Acute (5) Renal failure Current Visit: Yes Status: Acute Qualifiers: Renal failure chronicity: unspecified chronicity Qualified Code(s): N19 - Unspecified kidney failure (6) Scrotal edema Current Visit: Yes Status: Acute Subjective Date of service: 05/05/21 Principal diagnosis: Congestive heart failure, acute hypercapnic resp failure Interval history: Feels better today. Nurse at bedside. No new symptoms. Awake and alert and conversive. Objective Vital Signs Temp Pulse Pulse Resp BP Pulse Ox 05/05/21 09:29 88 138/91 05/05/21 04:42 98.8 F 89 22 146/96 97 05/05/21 00:02 97.9 F 98 H 20 142/99 98 05/04/21 23:25 102 H 34 H 93 05/04/21 22:30 76 L 05/04/21 21:10 88 22 88 05/04/21 19:48 98.6 F 99 H 18 145/91 86 08/06/21 18:32 98.3 F 97 H 20 138/95 86 05/04/21 13:20 80 05/04/21 12:51 97.8 F 84 20 98/56 90 05/04/21 11:54 18 95 - Physical Examination General: No Apparent Distress, Other (somnolent) HEENT: Positive: PERRL Neck: Positive: trachea midline Neuro: Positive: Grossly Intact Abdomen: Positive: Soft, Active Bowel Sounds Skin: Negative: Rash, Suspicious Lesions, Ulceration Extremities: Present: upper extr. pulses, lower extr. pulses, +4 Edema - Labs and Meds Comprehensive Metabolic Panel 05/04/21 05/05/21 Range/Units 14:41 07:23 Sodium 139 139 (137-145) mmol/L Potassium 4.5 D 4.6 (3.6-5.0) mmol/L Chloride 97.7 L 100.3 (98-107) mmol/L Carbon Dioxide 34 H 31 H (22-30) mmol/L BUN 34 H 36 H (9-20) mg/dL Creatinine 3.0 H 3.0 H (0.8-1.3) mg/dL Glucose 108 H 93 (75-100) mg/dL Calcium 8.6 7.8 L (8.4-10.2) mg/dL - Imaging and Cardiology EKG: report reviewed, image reviewed Echo: report reviewed - EKG Sinus rhythms and dysrhythmias: sinus rhythm
[2021-05-05] MEDS ORDERED: BUMETANIDE 1 MG/4 ML INJ IV ONE (10:36)
--- NOTE | 2021-05-05 12:20 | Progress Note ---
Assessment and Plan 1. Acute kidney injury: CHRISTOPHER in the setting of decompensated CHF. Low FeNa. Renal US suggestive of CKD, no hydro. Monitor renal function. Creatinine leveled off. Avoid nephrotoxic agents. Meds dosage based on GFR. Monitor for [employer] needs. 2. FEN: Hyperkalemia, improved, monitor. Hyponatremia, improved. Volume overload, on IV Bumex. Monitor lytes and volume status. 3. Acute on chronic respiratory failure with hypoxemia: 2/2 volume overload due to CHF. On BIPAP intermittently. 4. Decompensated CHF: New onset congestive heart failure. Echocardiogram showed normal EF, dilated RV and pulm HTN. On Bumex IV, Metoprolol, strict I/Os, fluid and salt restriction. Followed by Cards. 5. Obesity hypoventilation syndrome. 6. DM type 2. 7. Polycythemia, POA: Monitor. 8. Hypertension: BP controlled. Subjective: Patient was seen and examined at the bedside. Examination: General appearance: well-developed, appears stated age, morbidly obese, on NC O2 HEENT: atraumatic Neck: trachea midline Respiratory: ctab Heart: S1S2, regular, no murmur Abdomen: soft, bowel sounds heard, NT Integumentary: no obvious rash Neurologic: AO, able to move extremities Ext: LE, abd wall and dependent edema noted Subjective Date of service: 05/05/21 Principal diagnosis: Congestive heart failure, acute hypercapnic resp failure Objective - Vital Signs Vital signs: Vital Signs - 12hr 05/05/21 05/05/21 05/05/21 04:42 09:29 09:40 Temperature 98.8 F 98.0 F Pulse Rate 89 88 89 Pulse Rate [ Apical] Respiratory 22 18 Rate Blood Pressure 146/96 138/91 138/91 O2 Sat by Pulse 97 83 L Oximetry 05/05/21 05/05/21 05/05/21 10:00 11:17 11:54 Temperature Pulse Rate 82 Pulse Rate [ 88 Apical] Respiratory 20 18 Rate Blood Pressure 139/88 O2 Sat by Pulse 90 87 90 Oximetry - Lab 05/04/21 05:36 05/05/21 07:23 Most recent lab results ABG pH 7.092 (7.320-7.450) L 05/04/21 09:15 ABG O2 Saturation 95.7 (0-100) 05/04/21 09:15 Calcium 7.8 mg/dL (8.4-10.2) L 05/05/21 07:23 Phosphorus 5.30 mg/dL (2.5-4.5) H 05/01/21 17:54 Magnesium 2.30 mg/dL (1.7-2.3) 05/01/21 18:58 Urine Creatinine 207.2 mg/dL (0.1-20.0) H 05/02/21 Unknown Urine Sodium 52 mmol/L 05/02/21 Unknown Urine Total Protein 56 mg/dL (5-11.8) H 05/02/21 Unknown Medications & Allergies - Medications Allergies/Adverse Reactions: Allergies No Known Allergies Allergy (Unverified 05/01/21 14:31) Home Medications: Home Medications Medication Instructions Recorded Confirmed Last Taken Type No Known Home Medications [No 05/02/21 05/02/21 Unknown History Reported Home Medications] Active Medications: Generic Name Dose Route Start Last Admin Trade Name Freq PRN Reason Stop Dose Admin Acetaminophen 650 mg 05/01/21 18:44 Acetaminophen 325 Mg Tab PO Q4H PRN Pain MILD(1-3)/Fever >100.5/MEDLEY Albuterol 2.5 mg 05/01/21 18:44 Albuterol 2.5 Mg/3 Ml Nebu IH Q4HRT PRN Shortness Of Breath Aspirin 81 mg 05/03/21 10:00 05/05/21 09:28 Aspirin 81 Mg Tab Chew PO 81 mg QDAY NANETTE Administration Atorvastatin Calcium 80 mg 05/02/21 22:00 05/04/21 22:59 Atorvastatin 40 Mg Tab PO 80 mg QHS [facility] Administration Bumetanide 1 mg 05/05/21 18:00 Bumetanide 1 Mg/4 Ml Inj IV BID@0600,1800 [facility] Heparin Sodium (Porcine) 5,000 unit 05/01/21 22:00 05/05/21 09:29 Heparin 5,000 Unit/1 Ml Vial SUB-Q 5,000 unit Q12HR [facility] Administration Hydromorphone HCl 0.5 mg 05/01/21 18:44 Hydromorphone 1 Mg/1 Ml Inj IV Q12H PRN Pain , Severe (7-10) Metoprolol Tartrate 25 mg 05/05/21 22:00 Metoprolol Tartrate 25 Mg Tab PO BID [facility] Ondansetron HCl 4 mg 05/01/21 18:44 Ondansetron 4 Mg/2 Ml Inj IV Q8H PRN Nausea And Vomiting Oxycodone/Acetaminophen 1 tab 05/01/21 18:44 Oxycodone /Acetaminophen 5-325mg Tab PO Q12H PRN Pain, Moderate (4-6) Sodium Chloride 10 ml 05/01/21 22:00 05/05/21 09:29 Sodium Chloride 0.9% 10 Ml Flush Syringe IV 10 ml BID NANETTE Administration Sodium Chloride 10 ml 05/01/21 18:44 Sodium Chloride 0.9% 10 Ml Flush Syringe IV PRN PRN LINE FLUSH
[2021-05-05] MEDS: BUMETANIDE 1 MG/4 ML INJ IV SCH (17:49)
[2021-05-06] MEDS: BUMETANIDE 1 MG/4 ML INJ IV SCH ×2 (06:10→18:33)
[2021-05-06 07:34] LABS: Calcium 8.8 mg/dL (8.4-10.2)
--- NOTE | 2021-05-06 09:12 | Progress Note ---
Assessment and Plan Assessment and plan: Acute on chronic hypoxemic respiratory failure Acute diastolic heart failure. Pulmonary hypertension Acute kidney injury on CKD. Diabetes mellitus type 2. Obesity hypoventilation syndrome. Obstructive sleep apnea. Morbid obesity. 05/03/2021. Echocardiogram revealed left ventricular size normal with systolic function also normal EF 50 to 55%. Mild concentric left ventricular hypertrophy. Right ventricular volume overload. RVSP 48 mmHg consistent with pulmonary hypertension. However, VQ scan showed no evidence of PE. Also, patient appears to have CHRISTOPHER in the setting of decompensated CHF. Renal ultrasound is suggestive of CKD with no hydronephrosis or signs of obstruction. Baseline creatinine unknown. Continue per nephrology recommendations the patient will be counseled on the importance of weight loss and exercise prior to discharge. 05/04/2021. Patient was poorly responsive and somnolent this morning. Therefore, ABG was obtained which revealed pH of 7.09, PCO2 of 123 and PO2 of 86. Patient will be transferred to the ICU but currently no beds available. Respiratory therapy reports patient more responsive after ABG was obtained and conversive. We will attempt continue BiPAP and transfer when bed is available. Consider intubation and mechanical ventilation if patient deteriorates. Recheck ABG after changing BiPAP settings. Pulmonary consulted 05/05/2021. Continue BiPAP as clinically indicated. Pulmonary following. Follow-up ABG. Continue bronchodilators/nebulizer treatment. Continue diuresis per nephrology and cardiology recommendations. Continue GDMT for heart failure. Hold ANDREW/ARB in setting of CHRISTOPHER 05/06/2021. Continue BiPAP as clinically indicated. Pulmonary following. Continue bronchodilators/nebulizer treatment. Creatinine remained stable. CHRISTOPHER in the setting of decompensated CHF. Renal US suggestive of CKD, no hydro. Nephrology following. Patient with new onset CHF. Echocardiogram showed normal EF, dilated RV and pulm HTN. Continue Bumex IV, Metoprolol, strict I/Os, fluid and salt restriction. Hold ANDREW/ARB in setting of CHRISTOPHER Cardiology following. History Interval history: No new issues overnight. Patient much more responsive this morning Hospitalist Physical - Constitutional Vitals: Temp Pulse Resp BP Pulse Ox 97.9 F 93 H 24 167/117 98 05/06/21 07:35 05/06/21 07:35 05/06/21 07:36 05/06/21 07:36 05/06/21 07:35 General appearance: Present: no acute distress, well-nourished, other (Morbidly obese) - EENT Eyes: Present: PERRL, EOM intact ENT: hearing intact, clear oral mucosa, dentition normal - Neck Neck: Present: supple, normal ROM - Respiratory Respiratory effort: normal Respiratory: bilateral: CTA - Cardiovascular Rhythm: regular Heart Sounds: Present: S1 & S2. Absent: gallop, rub - Extremities Extremities: no ischemia, No edema, Full ROM - Abdominal General gastrointestinal: soft, non-tender, non-distended, normal bowel sounds - Integumentary Integumentary: Present: clear, warm, dry - Neurologic Neurologic: CNII-XII intact, moves all extremities HEART Score - HEART Score Troponin: Troponin T 0.035 ng/mL (0.00-0.029) H 05/03/21 05:36 Results - Labs CBC & Chem 7: 05/04/21 05:36 05/06/21 06:14 Labs: Laboratory Last Values WBC 4.1 K/mm3 (4.5-11.0) L 05/04/21 05:36 RBC 5.53 M/mm3 (3.65-5.03) H 05/04/21 05:36 Hgb 18.1 gm/dl (11.8-15.2) H 05/04/21 05:36 Hct 58.2 % (35.5-45.6) H 05/04/21 05:36 MCV 105 fl (84-94) H 05/04/21 05:36 MCH 33 pg (28-32) H 05/04/21 05:36 MCHC 31 % (32-34) L 05/04/21 05:36 RDW 16.1 % (13.2-15.2) H 05/04/21 05:36 Plt Count 217 K/mm3 (140-440) 05/04/21 05:36 Lymph % (Auto) 16.7 % (13.4-35.0) 05/04/21 05:36 Bond % (Auto) 11.3 % (0.0-7.3) H 05/04/21 05:36 Eos % (Auto) 0.1 % (0.0-4.3) 05/04/21 05:36 Baso % (Auto) 0.8 % (0.0-1.8) 05/04/21 05:36 Lymph # (Auto) 0.7 K/mm3 (1.2-5.4) L 05/04/21 05:36 Bond # (Auto) 0.5 K/mm3 (0.0-0.8) 05/04/21 05:36 Eos # (Auto) 0.0 K/mm3 (0.0-0.4) 05/04/21 05:36 Baso # (Auto) 0.0 K/mm3 (0.0-0.1) 05/04/21 05:36 Seg Neutrophils % 71.1 % (40.0-70.0) H 05/04/21 05:36 Seg Neutrophils # 2.9 K/mm3 (1.8-7.7) 05/04/21 05:36 ABG pH 7.092 (7.320-7.450) L 05/04/21 09:15 POC ABG pCO2 123.3 mmHg (32.0-48.0) H 05/04/21 09:15 POC ABG pO2 86.0 mmHg (83-108) 05/04/21 09:15 POC ABG HCO3 36.7 05/04/21 09:15 ABG O2 Saturation 95.7 (0-100) 05/04/21 09:15 POC ABG Base Excess 0.8 05/04/21 09:15 ABG Hemoglobin 19.2 (12.0-17.5) H 05/04/21 09:15 ABG Oxyhemoglobin 94.8 (94-98) 05/04/21 09:15 ABG Methemoglobin 0.5 (0.0-1.5) 05/04/21 09:15 ABG Sodium 138.7 mmol/L (136.0-145.0) 05/04/21 09:15 ABG Potassium 4.9 mmol/L (3.40-4.50) H 05/04/21 09:15 ABG Chloride 98.0 mmol/L (98-107) 05/04/21 09:15 ABG Glucose 86 mg/dL (65-95) 05/04/21 09:15 Carboxyhemoglobin 0.4 (0.5-1.5) L 05/04/21 09:15 FiO2 % 40.0 05/04/21 09:15 Sodium 139 mmol/L (137-145) 05/06/21 06:14 Potassium 4.0 mmol/L (3.6-5.0) 05/06/21 06:14 Chloride 96.8 mmol/L (98-107) L 05/06/21 06:14 Carbon Dioxide 37 mmol/L (22-30) H 05/06/21 06:14 Anion Gap 9 mmol/L 05/06/21 06:14 BUN 32 mg/dL (9-20) H 05/06/21 06:14 Creatinine 2.3 mg/dL (0.8-1.3) H 05/06/21 06:14 Estimated GFR 39 ml/min 05/06/21 06:14 BUN/Creatinine Ratio 14 % 05/06/21 06:14 Glucose 100 mg/dL (75-100) 05/06/21 06:14 Calcium 8.8 mg/dL (8.4-10.2) 05/06/21 06:14 Phosphorus 5.30 mg/dL (2.5-4.5) H 05/01/21 17:54 Magnesium 2.30 mg/dL (1.7-2.3) 05/01/21 18:58 Total Bilirubin 0.30 mg/dL (0.1-1.2) 05/01/21 18:58 AST 38 units/L (5-40) 05/01/21 18:58 ALT 22 units/L (7-56) 05/01/21 18:58 Alkaline Phosphatase 85 units/L (35-129) 05/01/21 18:58 Troponin T 0.035 ng/mL (0.00-0.029) H 05/03/21 05:36 NT-Pro-B Natriuret Pep 1940 pg/mL (0-450) H 05/01/21 17:54 Total Protein 5.9 g/dL (6.3-8.2) L 05/01/21 18:58 Albumin 1.7 g/dL (3.9-5) L 05/01/21 18:58 Albumin/Globulin Ratio 0.4 % 05/01/21 18:58 Triglycerides 121 mg/dL (2-149) 05/01/21 18:46 Cholesterol 248 mg/dL (50-199) H 05/01/21 18:46 LDL Cholesterol Direct 189 mg/dL (50-130) H 05/01/21 18:46 HDL Cholesterol 50 mg/dL (40-59) 05/01/21 18:46 Cholesterol/HDL Ratio 4.96 % 05/01/21 18:46 TSH 0.932 mlU/mL (0.270-4.200) 05/01/21 18:58 Free T4 0.85 ng/dL (0.76-1.46) 05/01/21 18:58 PTH Intact 100.1 pg/mL (15-65) H 05/03/21 05:36 Arterial Blood Glucose 86 mg/dL (65-95) 05/04/21 09:15 Arterial Blood Ionized Calcium 4.6 mg/dL (4.6-5.3) 05/04/21 09:15 Urine Color Yellow (Yellow) 05/01/21 17:56 Urine Turbidity Slightly-cloudy (Clear) 05/01/21 17:56 Urine pH 5.0 (5.0-7.0) 05/01/21 17:56 Ur Specific [place] 1.020 (1.003-1.030) 05/01/21 17:56 Urine Protein >500 mg/dL (Negative) 05/01/21 17:56 Urine Glucose (UA) 50 mg/dL (Negative) 05/01/21 17:56 Urine Ketones Neg mg/dL (Negative) 05/01/21 17:56 Urine Blood Mod (Negative) 05/01/21 17:56 Urine Nitrite Neg (Negative) 05/01/21 17:56 Urine Bilirubin Neg (Negative) 05/01/21 17:56 Urine Urobilinogen < 2.0 mg/dL (<2.0) 05/01/21 17:56 Ur Leukocyte Esterase Neg (Negative) 05/01/21 17:56 Urine WBC (Auto) 11.0 /HPF (0.0-6.0) H 05/01/21 17:56 Urine RBC (Auto) 7.0 /HPF (0.0-6.0) 05/01/21 17:56 U Epithel Cells (Auto) 2.0 /HPF (0-13.0) 05/01/21 17:56 Urine Bacteria (Auto) 1+ /HPF (Negative) 05/01/21 17:56 Urine Mucus Few /HPF 05/01/21 17:56 Urine Creatinine 207.2 mg/dL (0.1-20.0) H 05/02/21 Unknown Protein/Creatinin Ratio 0.27 05/02/21 Unknown Urine Sodium 52 mmol/L 05/02/21 Unknown Urine Total Protein 56 mg/dL (5-11.8) H 05/02/21 Unknown Coronavirus (PCR) Negative (Negative) 05/04/21 09:30 Downey/IV: Voiding Method Urinal Active Medications - Current Medications Current Medications: Generic Name Dose Route Start Last Admin Trade Name Freq PRN Reason Stop Dose Admin Acetaminophen 650 mg 05/01/21 18:44 Acetaminophen 325 Mg Tab PO Q4H PRN Pain MILD(1-3)/Fever >100.5/MEDLEY Acetazolamide 500 mg 05/06/21 10:00 Acetazolamide 250 Mg Tab PO BID NANETTE Albuterol 2.5 mg 05/01/21 18:44 Albuterol 2.5 Mg/3 Ml Nebu IH Q4HRT PRN Shortness Of Breath Aspirin 81 mg 05/03/21 10:00 05/05/21 09:28 Aspirin 81 Mg Tab Chew PO 81 mg QDAY NANETTE Administration Atorvastatin Calcium 80 mg 05/02/21 22:00 05/05/21 21:57 Atorvastatin 40 Mg Tab PO 80 mg QHS NANETTE Administration Bumetanide 1 mg 05/05/21 18:00 05/06/21 06:10 Bumetanide 1 Mg/4 Ml Inj IV 1 mg BID@0600,1800 NAN[facility]TE Administration Heparin Sodium (Porcine) 5,000 unit 05/01/21 22:00 05/05/21 22:04 Heparin 5,000 Unit/1 Ml Vial SUB-Q Not Given Q12HR [facility]ANETTE Hydromorphone HCl 0.5 mg 05/01/21 18:44 Hydromorphone 1 Mg/1 Ml Inj IV Q12H PRN Pain , Severe (7-10) Metoprolol Tartrate 25 mg 05/05/21 22:00 05/05/21 21:59 Metoprolol Tartrate 25 Mg Tab PO 25 mg BID NANETTE Administration Ondansetron HCl 4 mg 05/01/21 18:44 Ondansetron 4 Mg/2 Ml Inj IV Q8H PRN Nausea And Vomiting Oxycodone/Acetaminophen 1 tab 05/01/21 18:44 Oxycodone /Acetaminophen 5-325mg Tab PO Q12H PRN Pain, Moderate (4-6) Sodium Chloride 10 ml 05/01/21 22:00 05/05/21 21:58 Sodium Chloride 0.9% 10 Ml Flush Syringe IV 10 ml BID NANETTE Administration Sodium Chloride 10 ml 05/01/21 18:44 Sodium Chloride 0.9% 10 Ml Flush Syringe IV PRN PRN LINE FLUSH
[2021-05-06] MEDS: ASPIRIN 81 MG TAB CHEW PO SCH (10:51)
[2021-05-06] MEDS: METOPROLOL TARTRATE 25 MG TAB PO SCH (10:51)
[2021-05-06] MEDS: HEPARIN 5,000 UNIT/1 ML VIAL SUB-Q SCH ×2 (10:51→21:57)
[2021-05-06] MEDS: acetaZOLAMIDE 250 MG TAB PO SCH ×2 (10:51→21:56)
--- NOTE | 2021-05-06 11:09 | Progress Note ---
Assessment and Plan This is a 36-year-old -[place] gentleman: 1. Acute HFpEF * Clinically improving -- net -2.1 L * Edema is likely multifactorial given renal function * Changed to Bumex yesterday * Will again double metoprolol today * Echo 05/01/2021-EF 50 to 55%, mild left ventricular hypertrophy, right ventricle is mildly dilated, right ventricular volume overload, mild pulmonary hypertension. * GDMT: Hold ANDREW/ARB in setting of CHRISTOPHER, will double metoprolol again * Discussed importance of compliance with patient at length. It is not clear to me that patient understands gravity of his overall clinical condition. 2. Acute hypoxemic hypercapnic respiratory failure * Multifactorial - see above + obesity hypoventilation syndrome/likely obstructive sleep apnea * Pulmonary following CHRISTOPHER on CKD * Nephrology following DVT prophylaxis * Heparin SQ - Patient Problems (1) Acute heart failure with preserved ejection fraction (HFpEF) Current Visit: Yes Status: Acute (2) Congestive heart failure Current Visit: Yes Status: Acute Qualifiers: Heart failure type: unspecified Heart failure chronicity: acute Qualified Code(s): I50.9 - Heart failure, unspecified (3) Hyperlipidemia Current Visit: Yes Status: Acute (4) Obesity hypoventilation syndrome Current Visit: Yes Status: Acute (5) Renal failure Current Visit: Yes Status: Acute Qualifiers: Renal failure chronicity: unspecified chronicity Qualified Code(s): N19 - Unspecified kidney failure (6) Scrotal edema Current Visit: Yes Status: Acute Subjective Principal diagnosis: Congestive heart failure, acute hypercapnic resp failure Interval history: Feels a bit better today. No new symptoms. Awake and alert and conversive. Objective Vital Signs Temp Pulse Pulse Resp BP Pulse Ox 05/06/21 09:37 89 05/06/21 07:36 24 167/117 05/06/21 07:35 97.9 F 93 H 24 98 05/06/21 04:46 98.0 F 101 H 20 142/96 93 05/06/21 02:00 86 05/06/21 00:54 98.5 F 91 H 20 145/103 92 05/05/21 22:00 88 20 90 05/05/21 21:59 105 H 155/105 05/05/21 20:11 97.9 F 105 H 20 155/105 91 05/05/21 17:35 103 H 90 05/05/21 12:10 96 H 05/05/21 11:54 18 90 05/05/21 11:17 82 139/88 87 - Physical Examination General: No Apparent Distress, Other (somnolent) HEENT: Positive: PERRL Neck: Positive: trachea midline Neuro: Positive: Grossly Intact Abdomen: Positive: Soft, Active Bowel Sounds Skin: Negative: Rash, Suspicious Lesions, Ulceration Extremities: Present: upper extr. pulses, lower extr. pulses, +4 Edema - Labs and Meds Comprehensive Metabolic Panel 05/06/21 Range/Units 06:14 Sodium 139 (137-145) mmol/L Potassium 4.0 (3.6-5.0) mmol/L Chloride 96.8 L (98-107) mmol/L Carbon Dioxide 37 H (22-30) mmol/L BUN 32 H (9-20) mg/dL Creatinine 2.3 H (0.8-1.3) mg/dL Glucose 100 (75-100) mg/dL Calcium 8.8 (8.4-10.2) mg/dL - Imaging and Cardiology EKG: report reviewed, image reviewed Echo: report reviewed - EKG Sinus rhythms and dysrhythmias: sinus rhythm
--- NOTE | 2021-05-06 11:46 | Progress Note ---
Assessment and Plan 1. Acute kidney injury: CHRISTOPHER in the setting of decompensated CHF. Low FeNa. Renal US suggestive of CKD, no hydro. Monitor renal function. Creatinine level is improving. Avoid nephrotoxic agents. Meds dosage based on GFR. 2. FEN: Hyperkalemia, improved, monitor. Hyponatremia, improved. Volume overload, on IV Bumex. Metabolic alkalosis, Diamox. Monitor lytes and volume status. 3. Acute on chronic respiratory failure with hypoxemia and hypercapnia: 2/2 volume overload due to CHF. Also OSH. On BIPAP intermittently. 4. Decompensated CHF: New onset congestive heart failure. Echocardiogram showed normal EF, dilated RV and pulm HTN. On Bumex IV, Metoprolol, strict I/Os, fluid and salt restriction. Followed by Cards. 5. Obesity hypoventilation syndrome. 6. DM type 2. 7. Polycythemia, POA: Monitor. 8. Hypertension: BP controlled. Subjective: Patient was seen and examined at the bedside. Examination: General appearance: well-developed, appears stated age, morbidly obese, on NC O2 HEENT: atraumatic Neck: trachea midline Respiratory: ctab Heart: S1S2, regular, no murmur Abdomen: soft, bowel sounds heard, NT Integumentary: no obvious rash Neurologic: AO, able to move extremities Ext: LE, abd wall and dependent edema noted Subjective Date of service: 05/06/21 Principal diagnosis: Congestive heart failure, acute hypercapnic resp failure Objective - Vital Signs Vital signs: Vital Signs - 12hr 05/06/21 05/06/21 05/06/21 00:54 02:00 04:46 Temperature 98.5 F 98.0 F Pulse Rate 91 H 86 101 H Respiratory 20 20 Rate Blood Pressure 145/103 142/96 O2 Sat by Pulse 92 93 Oximetry 05/06/21 05/06/21 05/06/21 07:35 07:36 09:37 Temperature 97.9 F Pulse Rate 93 H Respiratory 24 24 Rate Blood Pressure 167/117 O2 Sat by Pulse 98 89 Oximetry - Lab 05/04/21 05:36 05/06/21 06:14 Most recent lab results ABG pH 7.092 (7.320-7.450) L 05/04/21 09:15 ABG O2 Saturation 95.7 (0-100) 05/04/21 09:15 Calcium 8.8 mg/dL (8.4-10.2) 05/06/21 06:14 Phosphorus 5.30 mg/dL (2.5-4.5) H 05/01/21 17:54 Magnesium 2.30 mg/dL (1.7-2.3) 05/01/21 18:58 Urine Creatinine 207.2 mg/dL (0.1-20.0) H 05/02/21 Unknown Urine Sodium 52 mmol/L 05/02/21 Unknown Urine Total Protein 56 mg/dL (5-11.8) H 05/02/21 Unknown Medications & Allergies - Medications Allergies/Adverse Reactions: Allergies No Known Allergies Allergy (Unverified 05/01/21 14:31) Home Medications: Home Medications Medication Instructions Recorded Confirmed Last Taken Type No Known Home Medications [No 05/02/21 05/02/21 Unknown History Reported Home Medications] Active Medications: Generic Name Dose Route Start Last Admin Trade Name Freq PRN Reason Stop Dose Admin Acetaminophen 650 mg 05/01/21 18:44 Acetaminophen 325 Mg Tab PO Q4H PRN Pain MILD(1-3)/Fever >100.5/[facility] Acetazolamide 500 mg 05/06/21 10:00 05/06/21 10:51 Acetazolamide 250 Mg Tab PO 500 mg BID NANETTE Administration Albuterol 2.5 mg 05/01/21 18:44 Albuterol 2.5 Mg/3 Ml Nebu IH Q4HRT PRN Shortness Of Breath Aspirin 81 mg 05/03/21 10:00 05/06/21 10:51 Aspirin 81 Mg Tab Chew PO 81 mg QDAY NANETTE Administration Atorvastatin Calcium 80 mg 05/02/21 22:00 05/05/21 21:57 Atorvastatin 40 Mg Tab PO 80 mg QHS [facility]AN[facility]TE Administration Bumetanide 1 mg 05/05/21 18:00 05/06/21 06:10 Bumetanide 1 Mg/4 Ml Inj IV 1 mg BID@0600,1800 NAN[facility]TE Administration Heparin Sodium (Porcine) 5,000 unit 05/01/21 22:00 05/06/21 10:51 Heparin 5,000 Unit/1 Ml Vial SUB-Q Not Given Q12HR [facility]AN[facility]TE Hydromorphone HCl 0.5 mg 05/01/21 18:44 Hydromorphone 1 Mg/1 Ml Inj IV Q12H PRN Pain , Severe (7-10) Metoprolol Tartrate 50 mg 05/06/21 22:00 Metoprolol Tartrate 50 Mg Tab PO BID NAN[facility]TE Ondansetron HCl 4 mg 05/01/21 18:44 Ondansetron 4 Mg/2 Ml Inj IV Q8H PRN Nausea And Vomiting Oxycodone/Acetaminophen 1 tab 05/01/21 18:44 Oxycodone /Acetaminophen 5-325mg Tab PO Q12H PRN Pain, Moderate (4-6) Sodium Chloride 10 ml 05/01/21 22:00 05/05/21 21:58 Sodium Chloride 0.9% 10 Ml Flush Syringe IV 10 ml BID NANETTE Administration Sodium Chloride 10 ml 05/01/21 18:44 Sodium Chloride 0.9% 10 Ml Flush Syringe IV PRN PRN LINE FLUSH
--- NOTE | 2021-05-06 21:06 | Progress Note ---
Assessment and Plan Acute on chronic hypoxemic-hypercapnic respiratory failure Acute diastolic heart failure. Pulmonary hypertension Acute kidney injury on CKD. Diabetes mellitus type 2. Obesity hypoventilation syndrome. Obstructive sleep apnea. Morbid obesity -Continue to titrate supplemental oxygen, titrate to keep O2 sats 88-90%, restrictive oxygen strategies -Follow up ABG ordered-RT was unable to obtain. Use bicarb on BMP as surrogate marker fro PaCO2 -Counselled on the need for compliance with BIPAP -Optimization of heart failure measures, while monitoring renal function and electrolyte profile -Avoid nephrotoxins, adjust medications for GFR/CrCL -Accucheck with glycemic control. Target blood glucose 140-180mg/dL -Home oxygen evaluation on discharge -Will need outpatient pulmonary follow up to evaluate sleep apnea -Weight loss and lifestyle modifications -VTE prophylaxis- subcut Heparin Subjective Date of service: 05/06/21 Principal diagnosis: Congestive heart failure, acute hypercapnic resp failure Interval history: Follow up fro acute hypoxic-hypercapnic resp failure; Morbid obesity with POLI; Pulmonary HTN Seen and examined. Vitals, labs, medications, chart and imaging reviewed. No adverse overnight events, lying quietly with FMM to BIPAP. Sleeping but rousable with appropriate responses to questions. Feeling much bett er Denies any chest pain, no shortness of breath, no fevers or chills. No nausea or vomiting. Objective - Exam Narrative Exam: General appearance: Present: no acute distress, well-nourished, other (Morbidly obese) - EENT Eyes: Present: PERRL, EOM intact ENT: hearing intact, clear oral mucosa, dentition normal - Neck Neck: Present: supple, normal ROM - Respiratory Respiratory effort: normal Respiratory: bilateral: CTA - Cardiovascular Rhythm: regular Heart Sounds: Present: S1 & S2. Absent: gallop, rub - Extremities Extremities: no ischemia, No edema, Full ROM - Abdominal General gastrointestinal: soft, non-tender, non-distended, normal bowel sounds - Integumentary Integumentary: Present: clear, warm, dry - Neurologic Neurologic: CNII-XII intact, moves all extremities Vital Signs - 12hr 05/06/21 05/06/21 05/06/21 09:37 10:00 14:00 Pulse Rate 93 H Respiratory 24 Rate O2 Sat by Pulse 89 100 Oximetry CBC and BMP: 05/04/21 05:36 05/08/21 04:42 ABG, PT/INR, D-dimer: ABG ABG pH 7.092 (7.320-7.450) L 05/04/21 09:15 POC ABG pCO2 123.3 mmHg (32.0-48.0) H 05/04/21 09:15 POC ABG pO2 86.0 mmHg (83-108) 05/04/21 09:15 POC ABG HCO3 36.7 05/04/21 09:15 ABG O2 Saturation 95.7 (0-100) 05/04/21 09:15 Abnormal lab findings: Abnormal Labs 05/01/21 05/01/21 05/01/21 17:54 17:54 17:56 WBC 4.3 L RBC 5.91 H Hgb 19.2 H Hct 59.5 H MCV 101 H MCH MCHC RDW 16.0 H [place] % (Auto) 12.3 H Lymph # (Auto) Seg Neutrophils % ABG pH POC ABG pCO2 ABG Hemoglobin ABG Potassium Carboxyhemoglobin Sodium 136 L Potassium 5.5 H Chloride 96.9 L Carbon Dioxide 34 H BUN 25 H Creatinine 2.7 H Glucose Calcium Phosphorus 5.30 H Troponin T NT-Pro-B Natriuret Pep 1940 H Total Protein Albumin 2.0 L Cholesterol LDL Cholesterol Direct PTH Intact Urine WBC (Auto) 11.0 H Urine Creatinine Urine Total Protein 05/01/21 05/01/21 05/02/21 18:46 18:58 Unknown WBC RBC Hgb Hct MCV MCH MCHC RDW [place] % (Auto) Lymph # (Auto) Seg Neutrophils % ABG pH POC ABG pCO2 ABG Hemoglobin ABG Potassium Carboxyhemoglobin Sodium 132 L Potassium 5.4 H Chloride 97.8 L Carbon Dioxide BUN 26 H Creatinine 2.3 H Glucose 101 H Calcium Phosphorus Troponin T 0.040 H NT-Pro-B Natriuret Pep Total Protein 5.9 L Albumin 1.7 L Cholesterol 248 H LDL Cholesterol Direct 189 H PTH Intact Urine WBC (Auto) Urine Creatinine 207.2 H Urine Total Protein 56 H 05/03/21 05/03/21 05/04/21 05:36 05:36 05:36 WBC RBC Hgb Hct MCV MCH MCHC RDW [place] % (Auto) Lymph # (Auto) Seg Neutrophils % ABG pH POC ABG pCO2 ABG Hemoglobin ABG Potassium Carboxyhemoglobin Sodium Potassium 5.5 H 5.9 H Chloride 97.0 L Carbon Dioxide 34 H D 38 H BUN 29 H 31 H Creatinine 2.7 H 3.2 H Glucose 133 H Calcium Phosphorus Troponin T 0.035 H NT-Pro-B Natriuret Pep Total Protein Albumin Cholesterol LDL Cholesterol Direct PTH Intact 100.1 H Urine WBC (Auto) Urine Creatinine Urine Total Protein 05/04/21 05/04/21 05/04/21 05:36 09:15 14:41 WBC 4.1 L RBC 5.53 H Hgb 18.1 H Hct 58.2 H MCV 105 H MCH 33 H MCHC 31 L RDW 16.1 H [place] % (Auto) 11.3 H Lymph # (Auto) 0.7 L Seg Neutrophils % 71.1 H ABG pH 7.092 L POC ABG pCO2 123.3 H ABG Hemoglobin 19.2 H ABG Potassium 4.9 H Carboxyhemoglobin 0.4 L Sodium Potassium Chloride 97.7 L Carbon Dioxide 34 H BUN 34 H Creatinine 3.0 H Glucose 108 H Calcium Phosphorus Troponin T NT-Pro-B Natriuret Pep Total Protein Albumin Cholesterol LDL Cholesterol Direct PTH Intact Urine WBC (Auto) Urine Creatinine Urine Total Protein 05/05/21 05/06/21 07:23 06:14 WBC RBC Hgb Hct MCV MCH MCHC RDW [place] % (Auto) Lymph # (Auto) Seg Neutrophils % ABG pH POC ABG pCO2 ABG Hemoglobin ABG Potassium Carboxyhemoglobin Sodium Potassium Chloride 96.8 L Carbon Dioxide 31 H 37 H BUN 36 H 32 H Creatinine 3.0 H 2.3 H Glucose Calcium 7.8 L Phosphorus Troponin T NT-Pro-B Natriuret Pep Total Protein Albumin Cholesterol LDL Cholesterol Direct PTH Intact Urine WBC (Auto) Urine Creatinine Urine Total Protein
[2021-05-06] MEDS: METOPROLOL TARTRATE 50 MG TAB PO SCH (21:56)
[2021-05-07] MEDS: BUMETANIDE 1 MG/4 ML INJ IV SCH (05:50)
--- NOTE | 2021-05-07 09:27 | Progress Note ---
Assessment and Plan Assessment and plan: Acute on chronic hypoxemic respiratory failure Acute diastolic heart failure. Pulmonary hypertension Acute kidney injury on CKD. Diabetes mellitus type 2. Obesity hypoventilation syndrome. Obstructive sleep apnea. Morbid obesity. 05/03/2021. Echocardiogram revealed left ventricular size normal with systolic function also normal EF 50 to 55%. Mild concentric left ventricular hypertrophy. Right ventricular volume overload. RVSP 48 mmHg consistent with pulmonary hypertension. However, VQ scan showed no evidence of PE. Also, patient appears to have CHRISTOPHER in the setting of decompensated CHF. Renal ultrasound is suggestive of CKD with no hydronephrosis or signs of obstruction. Baseline creatinine unknown. Continue per nephrology recommendations the patient will be counseled on the importance of weight loss and exercise prior to discharge. 05/04/2021. Patient was poorly responsive and somnolent this morning. Therefore, ABG was obtained which revealed pH of 7.09, PCO2 of 123 and PO2 of 86. Patient will be transferred to the ICU but currently no beds available. Respiratory therapy reports patient more responsive after ABG was obtained and conversive. We will attempt continue BiPAP and transfer when bed is available. Consider intubation and mechanical ventilation if patient deteriorates. Recheck ABG after changing BiPAP settings. Pulmonary consulted 05/05/2021. Continue BiPAP as clinically indicated. Pulmonary following. Follow-up ABG. Continue bronchodilators/nebulizer treatment. Continue diuresis per nephrology and cardiology recommendations. Continue GDMT for heart failure. Hold ANDREW/ARB in setting of CHRISTOPHER 05/06/2021. Continue BiPAP as clinically indicated. Pulmonary following. Continue bronchodilators/nebulizer treatment. Creatinine remained stable. CHRISTOPHER in the setting of decompensated CHF. Renal US suggestive of CKD, no hydro. Nephrology following. Patient with new onset CHF. Echocardiogram showed normal EF, dilated RV and pulm HTN. Continue Bumex IV, Metoprolol, strict I/Os, fluid and salt restriction. Hold ANDREW/ARB in setting of CHRISTOPHER Cardiology following. 05/07/2021. Patient with new onset CHF. Echocardiogram showed normal EF, dilated RV and pulm HTN. Continue Bumex IV, Metoprolol, strict I/Os, fluid and salt restriction. Continue BiPAP as clinically indicated. Continue bronchodilators/nebulizer treatment. Continue treatment plan per cardiology recommendations. Creatinine continues to remain stable at 2.3. CHRISTOPHER in the setting of decompensated CHF. Renal US suggestive of CKD, no hydronephrosis. Hold ANDREW/ARB in setting of CHRISTOPHER. Nephrology following. History Interval history: No new issues overnight. Hospitalist Physical - Constitutional Vitals: Temp Pulse Resp BP Pulse Ox 98.4 F 98 H 24 120/85 100 05/07/21 08:38 05/07/21 09:10 05/07/21 09:09 05/07/21 08:38 05/07/21 09:09 General appearance: Present: no acute distress, well-nourished, other (Morbidly obese) - EENT Eyes: Present: PERRL, EOM intact ENT: hearing intact, clear oral mucosa, dentition normal - Neck Neck: Present: supple, normal ROM - Respiratory Respiratory effort: normal Respiratory: bilateral: CTA - Cardiovascular Rhythm: regular Heart Sounds: Present: S1 & S2. Absent: gallop, rub - Extremities Extremities: no ischemia, No edema, Full ROM - Abdominal General gastrointestinal: soft, non-tender, non-distended, normal bowel sounds - Integumentary Integumentary: Present: clear, warm, dry - Neurologic Neurologic: CNII-XII intact, moves all extremities HEART Score - HEART Score Troponin: Troponin T 0.035 ng/mL (0.00-0.029) H 05/03/21 05:36 Results - Labs CBC & Chem 7: 05/04/21 05:36 05/07/21 05:13 Labs: Laboratory Last Values WBC 4.1 K/mm3 (4.5-11.0) L 05/04/21 05:36 RBC 5.53 M/mm3 (3.65-5.03) H 05/04/21 05:36 Hgb 18.1 gm/dl (11.8-15.2) H 05/04/21 05:36 Hct 58.2 % (35.5-45.6) H 05/04/21 05:36 MCV 105 fl (84-94) H 05/04/21 05:36 MCH 33 pg (28-32) H 05/04/21 05:36 MCHC 31 % (32-34) L 05/04/21 05:36 RDW 16.1 % (13.2-15.2) H 05/04/21 05:36 Plt Count 217 K/mm3 (140-440) 05/04/21 05:36 Lymph % (Auto) 16.7 % (13.4-35.0) 05/04/21 05:36 [place] % (Auto) 11.3 % (0.0-7.3) H 05/04/21 05:36 Eos % (Auto) 0.1 % (0.0-4.3) 05/04/21 05:36 Baso % (Auto) 0.8 % (0.0-1.8) 05/04/21 05:36 Lymph # (Auto) 0.7 K/mm3 (1.2-5.4) L 05/04/21 05:36 [place] # (Auto) 0.5 K/mm3 (0.0-0.8) 05/04/21 05:36 Eos # (Auto) 0.0 K/mm3 (0.0-0.4) 05/04/21 05:36 Baso # (Auto) 0.0 K/mm3 (0.0-0.1) 05/04/21 05:36 Seg Neutrophils % 71.1 % (40.0-70.0) H 05/04/21 05:36 Seg Neutrophils # 2.9 K/mm3 (1.8-7.7) 05/04/21 05:36 ABG pH 7.092 (7.320-7.450) L 05/04/21 09:15 POC ABG pCO2 123.3 mmHg (32.0-48.0) H 05/04/21 09:15 POC ABG pO2 86.0 mmHg (83-108) 05/04/21 09:15 POC ABG HCO3 36.7 05/04/21 09:15 ABG O2 Saturation 95.7 (0-100) 05/04/21 09:15 POC ABG Base Excess 0.8 05/04/21 09:15 ABG Hemoglobin 19.2 (12.0-17.5) H 05/04/21 09:15 ABG Oxyhemoglobin 94.8 (94-98) 05/04/21 09:15 ABG Methemoglobin 0.5 (0.0-1.5) 05/04/21 09:15 ABG Sodium 138.7 mmol/L (136.0-145.0) 05/04/21 09:15 ABG Potassium 4.9 mmol/L (3.40-4.50) H 05/04/21 09:15 ABG Chloride 98.0 mmol/L (98-107) 05/04/21 09:15 ABG Glucose 86 mg/dL (65-95) 05/04/21 09:15 Carboxyhemoglobin 0.4 (0.5-1.5) L 05/04/21 09:15 FiO2 % 40.0 05/04/21 09:15 Sodium 141 mmol/L (137-145) 05/07/21 05:13 Potassium 4.2 mmol/L (3.6-5.0) 05/07/21 05:13 Chloride 101.7 mmol/L (98-107) 05/07/21 05:13 Carbon Dioxide 34 mmol/L (22-30) H 05/07/21 05:13 Anion Gap 10 mmol/L 05/07/21 05:13 BUN 31 mg/dL (9-20) H 05/07/21 05:13 Creatinine 2.3 mg/dL (0.8-1.3) H 05/07/21 05:13 Estimated GFR 39 ml/min 05/07/21 05:13 BUN/Creatinine Ratio 13 % 05/07/21 05:13 Glucose 110 mg/dL (75-100) H 05/07/21 05:13 Calcium 8.0 mg/dL (8.4-10.2) L 05/07/21 05:13 Phosphorus 5.30 mg/dL (2.5-4.5) H 05/01/21 17:54 Magnesium 2.30 mg/dL (1.7-2.3) 05/01/21 18:58 Total Bilirubin 0.30 mg/dL (0.1-1.2) 05/01/21 18:58 AST 38 units/L (5-40) 05/01/21 18:58 ALT 22 units/L (7-56) 05/01/21 18:58 Alkaline Phosphatase 85 units/L (35-129) 05/01/21 18:58 Troponin T 0.035 ng/mL (0.00-0.029) H 05/03/21 05:36 NT-Pro-B Natriuret Pep 1940 pg/mL (0-450) H 05/01/21 17:54 Total Protein 5.9 g/dL (6.3-8.2) L 05/01/21 18:58 Albumin 1.7 g/dL (3.9-5) L 05/01/21 18:58 Albumin/Globulin Ratio 0.4 % 05/01/21 18:58 Triglycerides 121 mg/dL (2-149) 05/01/21 18:46 Cholesterol 248 mg/dL (50-199) H 05/01/21 18:46 LDL Cholesterol Direct 189 mg/dL (50-130) H 05/01/21 18:46 HDL Cholesterol 50 mg/dL (40-59) 05/01/21 18:46 Cholesterol/HDL Ratio 4.96 % 05/01/21 18:46 TSH 0.932 mlU/mL (0.270-4.200) 05/01/21 18:58 Free T4 0.85 ng/dL (0.76-1.46) 05/01/21 18:58 PTH Intact 100.1 pg/mL (15-65) H 05/03/21 05:36 Arterial Blood Glucose 86 mg/dL (65-95) 05/04/21 09:15 Arterial Blood Ionized Calcium 4.6 mg/dL (4.6-5.3) 05/04/21 09:15 Urine Color Yellow (Yellow) 05/01/21 17:56 Urine Turbidity Slightly-cloudy (Clear) 05/01/21 17:56 Urine pH 5.0 (5.0-7.0) 05/01/21 17:56 Ur Specific [place] 1.020 (1.003-1.030) 05/01/21 17:56 Urine Protein >500 mg/dL (Negative) 05/01/21 17:56 Urine Glucose (UA) 50 mg/dL (Negative) 05/01/21 17:56 Urine Ketones Neg mg/dL (Negative) 05/01/21 17:56 Urine Blood Mod (Negative) 05/01/21 17:56 Urine Nitrite Neg (Negative) 05/01/21 17:56 Urine Bilirubin Neg (Negative) 05/01/21 17:56 Urine Urobilinogen < 2.0 mg/dL (<2.0) 05/01/21 17:56 Ur Leukocyte Esterase Neg (Negative) 05/01/21 17:56 Urine WBC (Auto) 11.0 /HPF (0.0-6.0) H 05/01/21 17:56 Urine RBC (Auto) 7.0 /HPF (0.0-6.0) 05/01/21 17:56 U Epithel Cells (Auto) 2.0 /HPF (0-13.0) 05/01/21 17:56 Urine Bacteria (Auto) 1+ /HPF (Negative) 05/01/21 17:56 Urine Mucus Few /HPF 05/01/21 17:56 Urine Creatinine 207.2 mg/dL (0.1-20.0) H 05/02/21 Unknown Protein/Creatinin Ratio 0.27 05/02/21 Unknown Urine Sodium 52 mmol/L 05/02/21 Unknown Urine Total Protein 56 mg/dL (5-11.8) H 05/02/21 Unknown Coronavirus (PCR) Negative (Negative) 05/04/21 09:30 [place]/IV: Voiding Method Urinal Active Medications - Current Medications Current Medications: Generic Name Dose Route Start Last Admin Trade Name Freq PRN Reason Stop Dose Admin Acetaminophen 650 mg 05/01/21 18:44 Acetaminophen 325 Mg Tab PO Q4H PRN Pain MILD(1-3)/Fever >100.5/MEDLEY Acetazolamide 500 mg 05/06/21 10:00 05/06/21 21:56 Acetazolamide 250 Mg Tab PO 500 mg BID NANETTE Administration Albuterol 2.5 mg 05/01/21 18:44 Albuterol 2.5 Mg/3 Ml Nebu IH Q4HRT PRN Shortness Of Breath Aspirin 81 mg 05/03/21 10:00 05/06/21 10:51 Aspirin 81 Mg Tab Chew PO 81 mg QDAY NANETTE Administration Atorvastatin Calcium 80 mg 05/02/21 22:00 05/06/21 21:56 Atorvastatin 40 Mg Tab PO 80 mg QHS NANETTE Administration Bumetanide 1 mg 05/05/21 18:00 05/07/21 05:50 Bumetanide 1 Mg/4 Ml Inj IV 1 mg BID@0600,1800 NANETTE Administration Heparin Sodium (Porcine) 5,000 unit 05/01/21 22:00 05/06/21 21:57 Heparin 5,000 Unit/1 Ml Vial SUB-Q Not Given Q12HR [facility] Hydromorphone HCl 0.5 mg 05/01/21 18:44 Hydromorphone 1 Mg/1 Ml Inj IV Q12H PRN Pain , Severe (7-10) Metoprolol Tartrate 50 mg 05/06/21 22:00 05/06/21 21:56 Metoprolol Tartrate 50 Mg Tab PO 50 mg BID NANETTE Administration Ondansetron HCl 4 mg 05/01/21 18:44 Ondansetron 4 Mg/2 Ml Inj IV Q8H PRN Nausea And Vomiting Oxycodone/Acetaminophen 1 tab 05/01/21 18:44 Oxycodone /Acetaminophen 5-325mg Tab PO Q12H PRN Pain, Moderate (4-6) Sodium Chloride 10 ml 05/01/21 22:00 05/06/21 21:55 Sodium Chloride 0.9% 10 Ml Flush Syringe IV 10 ml BID NANETTE Administration Sodium Chloride 10 ml 05/01/21 18:44 Sodium Chloride 0.9% 10 Ml Flush Syringe IV PRN PRN LINE FLUSH
--- NOTE | 2021-05-07 10:41 | Progress Note ---
Assessment and Plan Acute HFpEF * Patient had an elevated BNP 1940, mildly elevated troponins 0.04->0.037, and +4 edema. * Echo 05/01/2021-EF 50 to 55%, mild left ventricular hypertrophy, right ventricle is mildly dilated, right ventricular volume overload, mild pulmonary hypertension. * Edema is likely multifactorial given renal function * Switch to Bumex 1mg PO BID. * GDMT: ASA, ANDREW/ARB, BB, Statin. Hold ANDREW/ARB in setting of CHRISTOPHER * Continue metoprolol 50mg BID, Lipitor 80mg QHS * Strict I&Os * Net UOP= -2420 Acute Respiratory failure * Multifactorial - see above + obesity hypoventilation syndrome/likely obstructive sleep apnea * Pulmonology following CHRISTOPHER on CKD * Patient K+ has improved.Creatinine has improved but remains elevated 3->2.3 * Nephrology following DVT prophylaxis * Heparin SQ Switch to Bumex 1mg PO BID. Patient my be discharged from a cardiac standpoint. Patient may follow up with Dr Meli Castro, [facility], on 06/01/2021 at 1030am at our [place] location. Patient seen in conjunction with Dr. Palacios who agrees with this plan of care. Will see as needed - Patient Problems (1) Acute on chronic respiratory failure with hypoxia Current Visit: Yes Status: Acute (2) Congestive heart failure Current Visit: Yes Status: Acute Qualifiers: Heart failure type: unspecified Heart failure chronicity: acute Qualified Code(s): I50.9 - Heart failure, unspecified (3) DVT prophylaxis Current Visit: Yes Status: Acute (4) Obesity hypoventilation syndrome Current Visit: Yes Status: Acute (5) Renal failure Current Visit: Yes Status: Acute Qualifiers: Renal failure chronicity: unspecified chronicity Qualified Code(s): N19 - Unspecified kidney failure (6) Acute on chronic respiratory failure with hypoxemia Current Visit: Yes Status: Acute (7) Scrotal edema Current Visit: Yes Status: Acute Subjective Date of service: 05/07/21 Principal diagnosis: Congestive heart failure, acute hypercapnic resp failure Interval history: Patient lying in bed with no cxardiac complaints. Reports feeling better UOP= -2420ml Sinus 90s on with no events on monitor Objective Last Vital Signs Temp 98.4 F 05/07/21 08:38 Pulse 98 H 05/07/21 09:10 Resp 24 05/07/21 09:09 BP 120/85 05/07/21 08:38 Pulse Ox 100 05/07/21 09:09 - Physical Examination General: No Apparent Distress HEENT: Positive: PERRL Neck: Positive: trachea midline Cardiac: Positive: Reg Rate and Rhythm Lungs: Positive: Decreased Breath Sounds Neuro: Positive: Grossly Intact Abdomen: Positive: Soft, Active Bowel Sounds Skin: Negative: Rash, Suspicious Lesions, Ulceration Extremities: Present: upper extr. pulses, lower extr. pulses, +2 Edema - Labs and Meds Comprehensive Metabolic Panel 05/07/21 Range/Units 05:13 Sodium 141 (137-145) mmol/L Potassium 4.2 (3.6-5.0) mmol/L Chloride 101.7 (98-107) mmol/L Carbon Dioxide 34 H (22-30) mmol/L BUN 31 H (9-20) mg/dL Creatinine 2.3 H (0.8-1.3) mg/dL Glucose 110 H (75-100) mg/dL Calcium 8.0 L (8.4-10.2) mg/dL - Imaging and Cardiology EKG: report reviewed, image reviewed Echo: report reviewed - Telemetry EKG Rhythm: Sinus Rhythm - EKG Sinus rhythms and dysrhythmias: sinus rhythm
[2021-05-07] MEDS: METOPROLOL TARTRATE 50 MG TAB PO SCH ×2 (11:08→21:14)
[2021-05-07] MEDS: HEPARIN 5,000 UNIT/1 ML VIAL SUB-Q SCH ×2 (11:10→21:14)
[2021-05-07] MEDS: acetaZOLAMIDE 250 MG TAB PO SCH ×2 (11:10→21:14)
--- NOTE | 2021-05-07 12:52 | Progress Note ---
Assessment and Plan 36 YO Male with Obesity Hypoventilation Syndrome, SMO, DM presents to ED for evaluation. Patient states that he has experienced shortness of breath, lower extremity swelling, testicular swelling over the past 2 weeks with progressively worsening symptoms over the same timeframe. Patient knowledges decreased exercise tolerance, dyspnea on exertion, dyspnea at rest. Patient transported to [facility] via private vehicle for further care and evaluation of the aforementioned symptoms. The patient was seen and evaluated in the emergency department. Patient found to have clinical symptoms consistent with new onset CHF, as well as cardiorenal syndrome. Patient admitted to telemetry and initiated on CHF protocol. Cardiology team consulted in ED. Nephrology team consulted in ED. Patient denies fever, chills, chest pain, palpitation, productive cough, skin rash, recent ill contact, or known exposure to COVID-19. No prior admission for review. Patient is morbid obese. Sleeping at this time with loud snoring noted. Patient is on 4L O2 Nasal cannal. O2 sat 96%. Patient is not in acute respiratory distress. Patient is sleeping in prone position. Patient is afebrile. Patient has no leukocytosis. Patient's hemoglobin 18.1 and hematocrit 58. This could be secondary polycythemia probably from hypoxemia Chest XRay 05/01/21 reported: Mild cardiomegaly with mild interstitial pulmonary edema. Probable trace bilateral pleural effusions. Patient had a perfusion lung scan on 05/02/21 reported: Low probability for pulmonary embolism. Patient is on SubQ herapin and albuterol inhaler. Patient is in deep sleep. Unable to get any further history at this time I spent critical care time of 35 minutes reviewing the chart, examining the patient, reviewing cxray and labs, talking to the nursing and respiratory staff, and workout the plan of treatment in this critically ill patient. - Patient Problems (1) Acute on chronic respiratory failure with hypoxemia Current Visit: Yes Status: Acute Plan to address problem: O2 4L Nasal Cannula Albuterol inhaler Continue SubQ heparin for DVT prophylaxis Recommend BiPAP 20/8 rate 20 FiO2 40% (2) Obesity hypoventilation syndrome Current Visit: Yes Status: Acute Plan to address problem: Will recommend weight loss Recommend sleep study as outpatient Recommend BiPAP 20/8 rate 20 FiO2 40% (3) Acute heart failure with preserved ejection fraction (HFpEF) Current Visit: Yes Status: Acute Plan to address problem: Management as per Cardiology (4) Renal failure Current Visit: Yes Status: Acute Qualifiers: Renal failure chronicity: unspecified chronicity Qualified Code(s): N19 - Unspecified kidney failure Plan to address problem: Management as per nephrology (5) Hyperlipidemia Current Visit: Yes Status: Acute Plan to address problem: Management as per primary team (6) Morbid obesity Current Visit: Yes Status: Acute (7) Morbid obesity with BMI of 50.0-59.9, adult Current Visit: Yes Status: Acute Plan to address problem: Will consult to lose weight Consult dietary for weight reduction diet Will recommend sleep study outpatient Recommend BiPAP 18/05 rate 20 FiO2 40% Subjective Date of service: 05/07/21 Principal diagnosis: Congestive heart failure, acute hypercapnic resp failure Interval history: 36 YO Male with Obesity Hypoventilation Syndrome, SMO, DM presents to ED for evaluation. Patient states that he has experienced shortness of breath, lower extremity swelling, testicular swelling over the past 2 weeks with progressively worsening symptoms over the same timeframe. Patient knowledges decreased exercise tolerance, dyspnea on exertion, dyspnea at rest. Patient transported to [facility] via private vehicle for further care and evaluation of the aforementioned symptoms. The patient was seen and evaluated in the emergency department. Patient found to have clinical symptoms consistent with new onset CHF, as well as cardiorenal syndrome. Patient admitted to telemetry and initiated on CHF protocol. Cardiology team consulted in ED. Nephrology team consulted in ED. Patient denies fever, chills, chest pain, palpitation, productive cough, skin rash, recent ill contact, or known exposure to COVID-19. No prior admission for review. Patient is morbid obese. Sleeping at this time with loud snoring noted. Patient is on 4L O2 Nasal cannal. O2 sat 96%. Patient is not in acute respiratory distress. Patient is sleeping in prone position. Patient is afebrile. Patient has no leukocytosis. Patient's hemoglobin 18.1 and hematocrit 58. This could be secondary polycythemia probably from hypoxemia Chest XRay 05/01/21 reported: Mild cardiomegaly with mild interstitial pulmonary edema. Probable trace bilateral pleural effusions. Patient had a perfusion lung scan on 05/02/21 reported: Low probability for pulmonary embolism. Patient is on SubQ herapin and albuterol inhaler. Patient is in deep sleep. Unable to get any further history at this time Objective Vital Signs - 12hr 05/07/21 05/07/21 05/07/21 02:00 03:45 08:38 Temperature 98.1 F 98.4 F Pulse Rate 103 H 89 79 Respiratory 19 20 Rate Blood Pressure 138/91 120/85 O2 Sat by Pulse 95 82 L Oximetry 05/07/21 05/07/21 09:09 09:10 Temperature Pulse Rate 98 H Respiratory 24 Rate Blood Pressure O2 Sat by Pulse 100 Oximetry Constitutional: no acute distress, asleep, other (Patient is morbidly obese. Is in deep sleep. Loud snoring present.) Eyes: non-icteric Neck: supple, no lymphadenopathy Effort: normal Ascultation: Bilateral: diminished breath sounds Cardiovascular: regular rate and rhythm Gastrointestinal: normoactive bowel sounds, soft, non-tender Integumentary: normal Extremities: no cyanosis, other (trace edema) Neurologic: pupils equal and round, other (Patient in deep sleep. Unable to assess.) Psychiatric: other (cannot assess, patient is in deep sleep) CBC and BMP: 05/04/21 05:36 05/08/21 04:42 ABG, PT/INR, D-dimer: ABG ABG pH 7.092 (7.320-7.450) L 05/04/21 09:15 POC ABG pCO2 123.3 mmHg (32.0-48.0) H 05/04/21 09:15 POC ABG pO2 86.0 mmHg (83-108) 05/04/21 09:15 POC ABG HCO3 36.7 05/04/21 09:15 ABG O2 Saturation 95.7 (0-100) 05/04/21 09:15 Abnormal lab findings: Abnormal Labs 05/01/21 05/01/21 05/01/21 17:54 17:54 17:56 WBC 4.3 L RBC 5.91 H Hgb 19.2 H Hct 59.5 H MCV 101 H MCH MCHC RDW 16.0 H Crook % (Auto) 12.3 H Lymph # (Auto) Seg Neutrophils % ABG pH POC ABG pCO2 ABG Hemoglobin ABG Potassium Carboxyhemoglobin Sodium 136 L Potassium 5.5 H Chloride 96.9 L Carbon Dioxide 34 H BUN 25 H Creatinine 2.7 H Glucose Calcium Phosphorus 5.30 H Troponin T NT-Pro-B Natriuret Pep 1940 H Total Protein Albumin 2.0 L Cholesterol LDL Cholesterol Direct PTH Intact Urine WBC (Auto) 11.0 H Urine Creatinine Urine Total Protein 05/01/21 05/01/21 05/02/21 18:46 18:58 Unknown WBC RBC Hgb Hct MCV MCH MCHC RDW Crook % (Auto) Lymph # (Auto) Seg Neutrophils % ABG pH POC ABG pCO2 ABG Hemoglobin ABG Potassium Carboxyhemoglobin Sodium 132 L Potassium 5.4 H Chloride 97.8 L Carbon Dioxide BUN 26 H Creatinine 2.3 H Glucose 101 H Calcium Phosphorus Troponin T 0.040 H NT-Pro-B Natriuret Pep Total Protein 5.9 L Albumin 1.7 L Cholesterol 248 H LDL Cholesterol Direct 189 H PTH Intact Urine WBC (Auto) Urine Creatinine 207.2 H Urine Total Protein 56 H 05/03/21 05/03/21 05/04/21 05:36 05:36 05:36 WBC RBC Hgb Hct MCV MCH MCHC RDW Crook % (Auto) Lymph # (Auto) Seg Neutrophils % ABG pH POC ABG pCO2 ABG Hemoglobin ABG Potassium Carboxyhemoglobin Sodium Potassium 5.5 H 5.9 H Chloride 97.0 L Carbon Dioxide 34 H D 38 H BUN 29 H 31 H Creatinine 2.7 H 3.2 H Glucose 133 H Calcium Phosphorus Troponin T 0.035 H NT-Pro-B Natriuret Pep Total Protein Albumin Cholesterol LDL Cholesterol Direct PTH Intact 100.1 H Urine WBC (Auto) Urine Creatinine Urine Total Protein 05/04/21 05/04/21 05/04/21 05:36 09:15 14:41 WBC 4.1 L RBC 5.53 H Hgb 18.1 H Hct 58.2 H MCV 105 H MCH 33 H MCHC 31 L RDW 16.1 H Crook % (Auto) 11.3 H Lymph # (Auto) 0.7 L Seg Neutrophils % 71.1 H ABG pH 7.092 L POC ABG pCO2 123.3 H ABG Hemoglobin 19.2 H ABG Potassium 4.9 H Carboxyhemoglobin 0.4 L Sodium Potassium Chloride 97.7 L Carbon Dioxide 34 H BUN 34 H Creatinine 3.0 H Glucose 108 H Calcium Phosphorus Troponin T NT-Pro-B Natriuret Pep Total Protein Albumin Cholesterol LDL Cholesterol Direct PTH Intact Urine WBC (Auto) Urine Creatinine Urine Total Protein 05/05/21 05/06/21 05/07/21 07:23 06:14 05:13 WBC RBC Hgb Hct MCV MCH MCHC RDW Crook % (Auto) Lymph # (Auto) Seg Neutrophils % ABG pH POC ABG pCO2 ABG Hemoglobin ABG Potassium Carboxyhemoglobin Sodium Potassium Chloride 96.8 L Carbon Dioxide 31 H 37 H 34 H BUN 36 H 32 H 31 H Creatinine 3.0 H 2.3 H 2.3 H Glucose 110 H Calcium 7.8 L 8.0 L Phosphorus Troponin T NT-Pro-B Natriuret Pep Total Protein Albumin Cholesterol LDL Cholesterol Direct PTH Intact Urine WBC (Auto) Urine Creatinine Urine Total Protein Chest x-ray: report reviewed, image reviewed Additional Studies: CHEST 2 VIEWS 05/01/21 INDICATION / CLINICAL INFORMATION: lower extremity swelling, CHF. COMPARISON: None available. FINDINGS: SUPPORT DEVICES: None. HEART / MEDIASTINUM: Cardiac silhouette size is mildly enlarged. LUNGS / PLEURA: There is mild interstitial pulmonary edema. Trace bilateral pleural effusions are present. The lungs are otherwise grossly clear. No pneumothorax. ADDITIONAL FINDINGS: No significant additional findings. IMPRESSION: 1. Mild cardiomegaly with mild interstitial pulmonary edema. Probable trace bilateral pleural effusions. NUCLEAR MEDICINE PERFUSION LUNG SCAN 05/02/21 INDICATION / CLINICAL INFORMATION: dyspnea. Shortness of breath. TECHNIQUE: 5.1 mCi of Tc-99m MAA were given by IV. COMPARISON: Chest radiograph dated 05/01/21. FINDINGS: PERFUSION: No significant perfusion defects. ADDITIONAL FINDINGS: None. IMPRESSION: 1. Low probability for pulmonary embolism.
--- NOTE | 2021-05-07 13:02 | Progress Note ---
Assessment and Plan 1. Acute kidney injury: CHRISTOPHER in the setting of decompensated CHF. Low FeNa. Renal US suggestive of CKD, no hydro. Monitor renal function. Creatinine level is better. Avoid nephrotoxic agents. Meds dosage based on GFR. 2. FEN: Hyperkalemia, improved, monitor. Hyponatremia, improved. Volume overload, on IV Bumex. Metabolic alkalosis, Diamox. Monitor lytes and volume status. 3. Acute on chronic respiratory failure with hypoxemia and hypercapnia: 2/2 volume overload due to CHF. Also OSH. On BIPAP intermittently. 4. Decompensated CHF: New onset congestive heart failure. Echocardiogram showed normal EF, dilated RV and pulm HTN. On Bumex IV, Metoprolol, strict I/Os, fluid and salt restriction. Followed by Cards. 5. Obesity hypoventilation syndrome. 6. DM type 2. 7. Polycythemia, POA: Monitor. 8. Hypertension: BP controlled. Subjective: Patient was seen and examined at the bedside. Examination: General appearance: well-developed, appears stated age, morbidly obese, on NC O2 HEENT: atraumatic Neck: trachea midline Respiratory: ctab Heart: S1S2, regular, no murmur Abdomen: soft, bowel sounds heard, NT Integumentary: no obvious rash Neurologic: AO, able to move extremities Ext: LE, abd wall and dependent edema noted Subjective Date of service: 05/07/21 Principal diagnosis: Congestive heart failure, acute hypercapnic resp failure Objective - Vital Signs Vital signs: Vital Signs - 12hr 05/07/21 05/07/21 05/07/21 02:00 03:45 08:38 Temperature 98.1 F 98.4 F Pulse Rate 103 H 89 79 Respiratory 19 20 Rate Blood Pressure 138/91 120/85 O2 Sat by Pulse 95 82 L Oximetry 05/07/21 05/07/21 09:09 09:10 Temperature Pulse Rate 98 H Respiratory 24 Rate Blood Pressure O2 Sat by Pulse 100 Oximetry - Lab 05/04/21 05:36 05/07/21 05:13 Most recent lab results ABG pH 7.092 (7.320-7.450) L 05/04/21 09:15 ABG O2 Saturation 95.7 (0-100) 05/04/21 09:15 Calcium 8.0 mg/dL (8.4-10.2) L 05/07/21 05:13 Phosphorus 5.30 mg/dL (2.5-4.5) H 05/01/21 17:54 Magnesium 2.30 mg/dL (1.7-2.3) 05/01/21 18:58 Urine Creatinine 207.2 mg/dL (0.1-20.0) H 05/02/21 Unknown Urine Sodium 52 mmol/L 05/02/21 Unknown Urine Total Protein 56 mg/dL (5-11.8) H 05/02/21 Unknown Medications & Allergies - Medications Allergies/Adverse Reactions: Allergies No Known Allergies Allergy (Unverified 05/01/21 14:31) Home Medications: Home Medications Medication Instructions Recorded Confirmed Last Taken Type No Known Home Medications [No 05/02/21 05/02/21 Unknown History Reported Home Medications] Active Medications: Generic Name Dose Route Start Last Admin Trade Name Freq PRN Reason Stop Dose Admin Acetaminophen 650 mg 05/01/21 18:44 Acetaminophen 325 Mg Tab PO Q4H PRN Pain MILD(1-3)/Fever >100.5/MEDLEY Acetazolamide 500 mg 05/06/21 10:00 05/07/21 11:10 Acetazolamide 250 Mg Tab PO 500 mg BID NANETTE Administration Albuterol 2.5 mg 05/01/21 18:44 Albuterol 2.5 Mg/3 Ml Nebu IH Q4HRT PRN Shortness Of Breath Aspirin 81 mg 05/03/21 10:00 05/06/21 10:51 Aspirin 81 Mg Tab Chew PO 81 mg QDAY NANETTE Administration Atorvastatin Calcium 80 mg 05/02/21 22:00 05/06/21 21:56 Atorvastatin 40 Mg Tab PO 80 mg QHS NANETTE Administration Bumetanide 1 mg 05/07/21 18:00 Bumetanide 1 Mg Tab PO 0600,1800 NANETTE Heparin Sodium (Porcine) 5,000 unit 05/01/21 22:00 05/07/21 11:10 Heparin 5,000 Unit/1 Ml Vial SUB-Q 5,000 unit Q12HR NANETTE Administration Hydromorphone HCl 0.5 mg 05/01/21 18:44 Hydromorphone 1 Mg/1 Ml Inj IV Q12H PRN Pain , Severe (7-10) Metoprolol Tartrate 50 mg 05/06/21 22:00 05/07/21 11:08 Metoprolol Tartrate 50 Mg Tab PO 50 mg BID NANETTE Administration Ondansetron HCl 4 mg 05/01/21 18:44 Ondansetron 4 Mg/2 Ml Inj IV Q8H PRN Nausea And Vomiting Oxycodone/Acetaminophen 1 tab 05/01/21 18:44 Oxycodone /Acetaminophen 5-325mg Tab PO Q12H PRN Pain, Moderate (4-6) Sodium Chloride 10 ml 05/01/21 22:00 05/07/21 11:14 Sodium Chloride 0.9% 10 Ml Flush Syringe IV 10 ml BID NANETTE Administration Sodium Chloride 10 ml 05/01/21 18:44 Sodium Chloride 0.9% 10 Ml Flush Syringe IV PRN PRN LINE FLUSH
[2021-05-07] MEDS: ASPIRIN 81 MG TAB CHEW PO SCH (13:15)
[2021-05-07] MEDS: BUMETANIDE 1 MG TAB PO SCH (17:16)
[2021-05-08 05:24] LABS: Calcium 8.7 mg/dL (8.4-10.2)
[2021-05-08] MEDS: BUMETANIDE 1 MG TAB PO SCH (06:40)
[2021-05-08 09:20] VITALS: BP 110/65
[2021-05-08] MEDS: METOPROLOL TARTRATE 50 MG TAB PO SCH (10:17)
[2021-05-08] MEDS: ASPIRIN 81 MG TAB CHEW PO SCH (10:17)
[2021-05-08] MEDS: HEPARIN 5,000 UNIT/1 ML VIAL SUB-Q SCH (10:17)
[2021-05-08] MEDS: acetaZOLAMIDE 250 MG TAB PO SCH (10:17)
--- NOTE | 2021-05-08 10:41 | Progress Note ---
Assessment and Plan Acute on Chronic HFpEF * Patient had an elevated BNP 1940, mildly elevated troponins 0.04->0.037, and +4 edema. * Echo 05/01/2021-EF 50 to 55%, mild left ventricular hypertrophy, right ventricle is mildly dilated, right ventricular volume overload, mild pulmonary hypertension. * Edema is likely multifactorial given renal function * Switch to Bumex 1mg PO BID. * GDMT: ASA, ANDREW/ARB, BB, Statin. Hold ANDREW/ARB in setting of CHRISTOPHER * Continue metoprolol 50mg BID, Lipitor 80mg QHS * Strict I&Os * Net UOP= -2420 Acute Respiratory failure * Multifactorial - see above + obesity hypoventilation syndrome/likely obstructive sleep apnea * Pulmonology following CHRISTOPHER on CKD Nephrotic syndrome * Patient K+ has improved.Creatinine 3->2.3->2.3 * Nephrology following DVT prophylaxis * Heparin SQ Continue Bumex 1mg PO BID. Patient my be discharged from a cardiac standpoint. Patient may follow up with Dr Meli Castro, [facility], on 06/01/2021 at 1030am at our [place] location. Patient seen in conjunction with Dr. Palacios who agrees with this plan of care. Will see as needed - Patient Problems (1) Acute on chronic respiratory failure with hypoxia Current Visit: Yes Status: Acute (2) Congestive heart failure Current Visit: Yes Status: Acute Qualifiers: Heart failure type: unspecified Heart failure chronicity: acute Qualified Code(s): I50.9 - Heart failure, unspecified (3) DVT prophylaxis Current Visit: Yes Status: Acute (4) Obesity hypoventilation syndrome Current Visit: Yes Status: Acute (5) Renal failure Current Visit: Yes Status: Acute Qualifiers: Renal failure chronicity: unspecified chronicity Qualified Code(s): N19 - Unspecified kidney failure (6) Acute on chronic respiratory failure with hypoxemia Current Visit: Yes Status: Acute (7) Scrotal edema Current Visit: Yes Status: Acute Subjective Date of service: 05/08/21 Principal diagnosis: Congestive heart failure, acute hypercapnic resp failure Interval history: Patient sitting in bed with no complaints. UOP= -1130ml Sinus 80s on with no events on monitor Objective Vital Signs Last Vital Signs Temp 98.0 F 05/08/21 08:20 Pulse 48 L 05/08/21 08:20 Resp 20 05/08/21 08:20 BP 110/65 05/08/21 08:20 Pulse Ox 96 05/08/21 10:00 - Physical Examination General: No Apparent Distress HEENT: Positive: PERRL Neck: Positive: trachea midline Lungs: Positive: Decreased Breath Sounds Neuro: Positive: Grossly Intact Abdomen: Positive: Soft, Active Bowel Sounds Skin: Negative: Rash, Suspicious Lesions, Ulceration Extremities: Present: upper extr. pulses, lower extr. pulses, +1 Edema - Labs and Meds Comprehensive Metabolic Panel 05/08/21 Range/Units 04:42 Sodium 143 (137-145) mmol/L Potassium 4.4 (3.6-5.0) mmol/L Chloride 101.2 (98-107) mmol/L Carbon Dioxide 39 H (22-30) mmol/L BUN 30 H (9-20) mg/dL Creatinine 2.3 H (0.8-1.3) mg/dL Glucose 111 H (75-100) mg/dL Calcium 8.7 (8.4-10.2) mg/dL - Imaging and Cardiology EKG: report reviewed, image reviewed Echo: report reviewed - Telemetry EKG Rhythm: Sinus Rhythm - EKG Sinus rhythms and dysrhythmias: sinus rhythm
--- NOTE | 2021-05-08 12:34 | Discharge Summary ---
Providers - Providers Date of Admission: 05/01/21 18:45 Date of discharge: 05/08/21 Attending physician: ZEYNEP POLLACK MD 05/01/21 18:44 Consult to Physician [CONS] Routine Comment: Consulting Provider: HIMA CANALES Physician Instructions: Reason For Exam: christopher 05/01/21 18:49 Consult to Physician [CONS] Routine Comment: Consulting Provider: DAYO DAVIS Physician Instructions: Reason For Exam: chf 05/04/21 10:21 Consult to Physician [CONS] Routine Comment: Consulting Provider: RAMIREZ GRANGER Physician Instructions: Reason For Exam: Hypercapnic respiratory failure Primary care physician: PLATEN PRESS FEEDER Hospitalization Reason for admission: Shortness of breath Condition: Fair Hospital course: HPI: 36 YO Male with Obesity Hypoventilation Syndrome, SMO, DM presents to ED for evaluation. Patient reports "I am swollen and is hard to breathe". Patient states that he has experienced shortness of breath, lower extremity swelling, testicular swelling over the past 2 weeks with progressively worsening symptoms over the same timeframe. Patient knowledges decreased exercise tolerance, dyspnea on exertion, dyspnea at rest. Patient transported to [facility] via private vehicle for further care and evaluation of the aforementioned symptoms. The patient was seen and evaluated in the emergency department. All lab and imaging studies reviewed. Patient found to have clinical symptoms consistent with new onset CHF, as well as cardiorenal syndrome. Patient admitted to telemetry and initiated on CHF protocol. Cardiology team consulted in ED. Nephrology team consulted in ED. Patient denies fever, chills, chest pain, palpitation, productive cough, skin rash, recent ill contact, or known exposure to COVID-19. No prior admission for review. No medication listed at admission for reconciliation. Hospital Course: 05/03/2021. Echocardiogram revealed left ventricular size normal with systolic function also normal EF 50 to 55%. Mild concentric left ventricular hypertrophy. Right ventricular volume overload. RVSP 48 mmHg consistent with pulmonary hypertension. However, VQ scan showed no evidence of PE. Also, patient appears to have CHRISTOPHER in the setting of decompensated CHF. Renal ultrasound is suggestive of CKD with no hydronephrosis or signs of obstruction. Baseline creatinine unknown. Continue per nephrology recommendations the patient will be counseled on the importance of weight loss and exercise prior to discharge. 05/04/2021. Patient was poorly responsive and somnolent this morning. Therefore, ABG was obtained which revealed pH of 7.09, PCO2 of 123 and PO2 of 86. Patient will be transferred to the ICU but currently no beds available. Respiratory therapy reports patient more responsive after ABG was obtained and conversive. We will attempt continue BiPAP and transfer when bed is available. Consider intubation and mechanical ventilation if patient deteriorates. Recheck ABG after changing BiPAP settings. Pulmonary consulted 05/05/2021. Continue BiPAP as clinically indicated. Pulmonary following. Follow-up ABG. Continue bronchodilators/nebulizer treatment. Continue diuresis per nephrology and cardiology recommendations. Continue GDMT for heart failure. Hold ANDREW/ARB in setting of CHRISTOPHER 05/06/2021. Continue BiPAP as clinically indicated. Pulmonary following. Continue bronchodilators/nebulizer treatment. Creatinine remained stable. CHRISTOPHER in the setting of decompensated CHF. Renal US suggestive of CKD, no hydro. Nephrology following. Patient with new onset CHF. Echocardiogram showed normal EF, dilated RV and pulm HTN. Continue Bumex IV, Metoprolol, strict I/Os, fluid and salt restriction. Hold ANDREW/ARB in setting of CHRISTOPHER Cardiology following. 05/07/2021. Patient with new onset CHF. Echocardiogram showed normal EF, dilated RV and pulm HTN. Continue Bumex IV, Metoprolol, strict I/Os, fluid and salt restriction. Continue BiPAP as clinically indicated. Continue bronchodilators/nebulizer treatment. Continue treatment plan per cardiology recommendations. Creatinine continues to remain stable at 2.3. CHRISTOPHER in the setting of decompensated CHF. Renal US suggestive of CKD, no hydronephrosis. Hold ANDREW/ARB in setting of CHRISTOPHER. Nephrology following. 05/08/2021: Patient optimized with diuretics and GDMT with cardiology. Patient off of supplemental oxygen breathing ambient room air and saturating at 96%. Symptomatically he states he is feeling better then admission. We will be discharging him home with prescriptions for his HFpEF. He was given instructions to follow-up with Dr. Hager. Appointment information is listed below: Patient may follow up with Dr Meli Hager, [facility], on 06/01/2021 at 1030am at our [place] location. Disposition: [id number] TO HOME OR SELFCARE Final Discharge Diagnosis (Prints w/discharge instructions): Acute heart failure with preserved ejection fraction - Discharge Diagnoses (1) Acute heart failure with preserved ejection fraction (HFpEF) Status: Acute (2) Acute on chronic respiratory failure with hypoxemia Status: Acute (3) Congestive heart failure Status: Acute Qualifiers: Heart failure type: unspecified Heart failure chronicity: acute Qualified Code(s): I50.9 - Heart failure, unspecified (4) DVT prophylaxis Status: Acute (5) Hyperlipidemia Status: Acute (6) Morbid obesity with BMI of 50.0-59.9, adult Status: Acute (7) Obesity hypoventilation syndrome Status: Acute (8) Renal failure Status: Acute Qualifiers: Renal failure chronicity: unspecified chronicity Qualified Code(s): N19 - Unspecified kidney failure (9) Scrotal edema Status: Acute Core Measure Documentation - Palliative Care Palliative Care/ Comfort Measures: Not Applicable - Core Measures Any of the following diagnoses?: heart failure - Heart Failure Discharge Requirements ANDREW/ARB for LVSD if EF <40%: No Reason for no ANDREW/ARB: Renal impairment Beta bushra at discharge: Yes Exam - Constitutional Vitals: Temp Pulse Resp BP Pulse Ox 98.0 F 48 L 20 110/65 96 05/08/21 08:20 05/08/21 08:20 05/08/21 08:20 05/08/21 08:20 05/08/21 10:00 Plan Activity: no restrictions Weight Bearing Status: Weight Bear as Tolerated Diet: low fat, low cholesterol, low salt, renal Follow up with: PRIMARY MD CISCO [Primary Care Provider] - 7 Days CATY HAGER MD [Staff Physician] - 7 Days Prescriptions: AtorvaSTATin [Lipitor] 80 mg PO QHS 30 Days #30 tablet Aspirin [Aspirin BABY CHEW TAB] 81 mg PO QDAY 30 Days #30 tab.chew Bumetanide [Bumex 1 mg tab] 1 mg PO 0600,1800 30 Days #60 tablet acetaZOLAMIDE [Diamox TAB] 500 mg PO BID 30 Days #60 tablet Metoprolol [Lopressor TAB] 50 mg PO BID 30 Days #60 tablet
--- NOTE | 2021-05-08 13:38 | Progress Note ---
Assessment and Plan 1. Acute kidney injury: CHRISTOPHER in the setting of decompensated CHF. Low FeNa. Renal US suggestive of CKD, no hydro. Monitor renal function. Creatinine leveled off. Avoid nephrotoxic agents. Meds dosage based on GFR. 2. FEN: Hyperkalemia, improved, monitor. Hyponatremia, improved. Volume overload, on Bumex. Metabolic alkalosis, on Diamox. Monitor lytes and volume status. 3. Acute on chronic respiratory failure with hypoxemia and hypercapnia: 2/2 volume overload due to CHF. Also OSH. On BIPAP intermittently. 4. Decompensated CHF: New onset congestive heart failure. Echocardiogram showed normal EF, dilated RV and pulm HTN. On Bumex and Metoprolol. Strict I/Os, fluid and salt restriction. Followed by Cards. 5. Obesity hypoventilation syndrome. 6. DM type 2. 7. Polycythemia, POA: Monitor. 8. Hypertension: BP controlled. F/u with me in 1-2 weeks after d/c. Subjective: Patient was seen and examined at the bedside. Examination: General appearance: well-developed, appears stated age, morbidly obese, on RA HEENT: atraumatic Neck: trachea midline Respiratory: ctab Heart: S1S2, regular, no murmur Abdomen: soft, bowel sounds heard, NT Integumentary: no obvious rash Neurologic: sleeping, able to move extremities Ext: LE, abd wall and dependent edema noted Subjective Date of service: 05/08/21 Principal diagnosis: Congestive heart failure, acute hypercapnic resp failure Objective - Vital Signs Vital signs: Vital Signs - 12hr 05/08/21 05/08/21 05/08/21 03:18 03:31 06:00 Temperature 97.9 F Pulse Rate 80 76 Respiratory 20 Rate Blood Pressure 131/90 O2 Sat by Pulse 96 94 Oximetry 05/08/21 05/08/21 05/08/21 08:13 08:20 10:00 Temperature 98.0 F Pulse Rate 76 48 L Respiratory 20 Rate Blood Pressure 110/65 O2 Sat by Pulse 98 90 96 Oximetry - Lab 05/04/21 05:36 05/08/21 04:42 Most recent lab results ABG pH 7.092 (7.320-7.450) L 05/04/21 09:15 ABG O2 Saturation 95.7 (0-100) 05/04/21 09:15 Calcium 8.7 mg/dL (8.4-10.2) 05/08/21 04:42 Phosphorus 5.30 mg/dL (2.5-4.5) H 05/01/21 17:54 Magnesium 2.30 mg/dL (1.7-2.3) 05/01/21 18:58 Urine Creatinine 207.2 mg/dL (0.1-20.0) H 05/02/21 Unknown Urine Sodium 52 mmol/L 05/02/21 Unknown Urine Total Protein 56 mg/dL (5-11.8) H 05/02/21 Unknown Medications & Allergies - Medications Allergies/Adverse Reactions: Allergies No Known Allergies Allergy (Unverified 05/01/21 14:31) Home Medications: Home Medications Medication Instructions Recorded Confirmed Last Taken Type Aspirin [Aspirin BABY CHEW TAB] 81 mg PO QDAY 30 Days #30 tab.chew 05/08/21 Unknown Rx AtorvaSTATin [Lipitor] 80 mg PO QHS 30 Days #30 tablet 05/08/21 Unknown Rx Bumetanide [Bumex 1 mg tab] 1 mg PO 0600,1800 30 Days #60 05/08/21 Unknown Rx tablet Metoprolol [Lopressor TAB] 50 mg PO BID 30 Days #60 tablet 05/08/21 Unknown Rx acetaZOLAMIDE [Diamox TAB] 500 mg PO BID 30 Days #60 tablet 05/08/21 Unknown Rx Active Medications: Generic Name Dose Route Start Last Admin Trade Name Freq PRN Reason Stop Dose Admin Acetaminophen 650 mg 05/01/21 18:44 Acetaminophen 325 Mg Tab PO Q4H PRN Pain MILD(1-3)/Fever >100.5/MEDLEY Acetazolamide 500 mg 05/06/21 10:00 05/08/21 10:17 Acetazolamide 250 Mg Tab PO 500 mg BID NANETTE Administration Albuterol 2.5 mg 05/01/21 18:44 Albuterol 2.5 Mg/3 Ml Nebu IH Q4HRT PRN Shortness Of Breath Aspirin 81 mg 05/03/21 10:00 05/08/21 10:17 Aspirin 81 Mg Tab Chew PO 81 mg QDAY NANETTE Administration Atorvastatin Calcium 80 mg 05/02/21 22:00 05/07/21 21:14 Atorvastatin 40 Mg Tab PO 80 mg QHS NANETTE Administration Bumetanide 1 mg 05/07/21 18:00 05/08/21 06:40 Bumetanide 1 Mg Tab PO 1 mg 0600,1800 NANETTE Administration Heparin Sodium (Porcine) 5,000 unit 05/01/21 22:00 05/08/21 10:17 Heparin 5,000 Unit/1 Ml Vial SUB-Q 5,000 unit Q12HR NANETTE Administration Hydromorphone HCl 0.5 mg 05/01/21 18:44 Hydromorphone 1 Mg/1 Ml Inj IV Q12H PRN Pain , Severe (7-10) Metoprolol Tartrate 50 mg 05/06/21 22:00 05/08/21 10:17 Metoprolol Tartrate 50 Mg Tab PO 50 mg BID NANETTE Administration Ondansetron HCl 4 mg 05/01/21 18:44 Ondansetron 4 Mg/2 Ml Inj IV Q8H PRN Nausea And Vomiting Oxycodone/Acetaminophen 1 tab 05/01/21 18:44 Oxycodone /Acetaminophen 5-325mg Tab PO Q12H PRN Pain, Moderate (4-6) Sodium Chloride 10 ml 05/01/21 22:00 05/08/21 10:17 Sodium Chloride 0.9% 10 Ml Flush Syringe IV 10 ml BID NANETTE Administration Sodium Chloride 10 ml 05/01/21 18:44 Sodium Chloride 0.9% 10 Ml Flush Syringe IV PRN PRN LINE FLUSH
== END 2021-05-08 17:24 | disposition home or self-care (01) | DRG 291 ==
LOC: EDSEX → ED 13:59 → 4A 18:45
PROVIDERS: ADMIT Internal Medicine; ATTEND Internal Medicine
PROC: 5A09357 Assistance with Respiratory Ventilation, Less than 24 Consecutive Hours, Continuous Positive Airway Pressure (ICD-10-PCS; 2021-05-04)
PROC: 4A033R1 Measurement of Arterial Saturation, Peripheral, Percutaneous Approach (ICD-10-PCS; principal; 2021-05-07)
DX: I13.0 Hypertensive heart and chronic kidney disease with heart failure and stage 1 through stage 4 chronic kidney disease, or unspecified chronic kidney disease (principal); J96.21 Acute and chronic respiratory failure with hypoxia; I50.31 Acute diastolic (congestive) heart failure; J96.22 Acute and chronic respiratory failure with hypercapnia; N17.9 Acute kidney failure, unspecified; E66.2 Morbid (severe) obesity with alveolar hypoventilation; J44.1 Chronic obstructive pulmonary disease with (acute) exacerbation; E87.1 Hypo-osmolality and hyponatremia; Z68.43 Body mass index [BMI] 50.0-59.9, adult; I27.20 Pulmonary hypertension, unspecified; E11.22 Type 2 diabetes mellitus with diabetic chronic kidney disease; E87.5 Hyperkalemia; Z53.29 Procedure and treatment not carried out because of patient's decision for other reasons; D75.1 Secondary polycythemia; E78.5 Hyperlipidemia, unspecified; N50.89 Other specified disorders of the male genital organs; N18.30 Chronic kidney disease, stage 3 unspecified; Z82.49 Family history of ischemic heart disease and other diseases of the circulatory system; Z83.3 Family history of diabetes mellitus
CPT/HCPCS: 36415; 36600; 71046; 76770; 78580; 80048; 80053; 80061; 81001; 82570; 82805; 83735; 83880; 83970; 84100; 84156; 84300; 84439; 84443; 84484; 85025; 87086; 93005; 93306; 94660; 94760; 99291; 99292; 99406; G0378; A9270-GY; A9540; J1644; J1940; U0003